=== PATIENT | male | born 1945 | race Caucasian/White ===

== ENCOUNTER 2023-12-29 16:56 | Emergency (ER) | payer MEDICARE, OTHER, SELFPAY ==
[2023-12-29] VITALS (11 sets, daily range): BP systolic 163–186; BP diastolic 88–142; PULSE 62–80; RESP 20–26; TEMP 36.5; O2SAT 92–96; BMI 50.8
--- NOTE | 2023-12-29 17:04 | DI.RAD.S_ITS ---
PROCEDURE: XR CHEST 1V INDICATIONS: chest pain TECHNIQUE: One view of the chest was acquired. COMPARISON: None. FINDINGS: Surgical changes and devices: None. Lungs and pleura: Low lung volumes are seen bilaterally. No pleural effusions or pneumothorax. Mediastinum: Cardiac silhouette is enlarged. Bones and chest wall: No suspicious bony lesions. Overlying soft tissues appear unremarkable. IMPRESSION: No acute cardiopulmonary abnormality is seen. Approved by: Matt Reagan M.D. on 12/29/2023 at 17:33
--- NOTE | 2023-12-29 17:04 | EKG_ITS ---
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
[2023-12-29 17:51] LABS: Influenza A - CEPHEID Flu A NEGATIVE (NEGATIVE); Influenza B - CEPHEID Flu B NEGATIVE (NEGATIVE); Respiratory Syncytial Virus Negative (Negative)
[2023-12-29 17:53] LABS: COVID-19 CEPHEID 4-PLEX PCR Negative (Negative)
[2023-12-29 18:12] LABS: Add Manual Diff / Slide Review NO; Basophils Absolute Auto 100 /uL (0-100); Basophils Percent Auto 0.9 % (0-2); Eosinophils Absolute Auto 300 /uL (0-450); Eosinophils Percent Auto 4.2 % (2-4); Hematocrit 40.9 % (41-53); Hemoglobin 13.4 g/dL (13.5-17.5); Lymphocytes Absolute Auto 900 /uL (1100-4500); Lymphocytes Percent Auto 11.5 % (25-40); Mean Corpuscular HGB Conc 32.8 % (30-36); Mean Corpuscular Hemoglobin 29.9 PG (26-34); Mean Corpuscular Volume 91.3 fL (80-100); Monocytes Absolute Auto 400 /uL (0-900); Monocytes Percent Auto 5.7 % (3-14); Neutrophils Absolute Auto 5900 /uL (1500-7000); Neutrophils Percent Auto 77.7 % (50-75); Platelet Count 233 X10^3/uL (150-400); Red Blood Cell Count 4.48 X10^6/uL (4.5-5.9); Red Cell Distribution Width 16.7 % (11.6-14.8); White Blood Cell Count 7.6 X10^3/uL (4.5-11.0)
--- NOTE | 2023-12-29 18:12 | PC.NURSE ---
Patient brought in by EMS for body aches, cough, nasal congestion x 7days.
[2023-12-29 18:19] LABS: Prothrombin Time 10.8 SECONDS (9.4-12.5)
[2023-12-29 18:21] LABS: PTT Partial Thromboplastin Tim 38 SECONDS (25.1-36.5)
[2023-12-29 18:27] LABS: Alanine Aminotransferase 111 IU/L (<50); Albumin 3.4 g/dL (3.5-5.0); Alkaline Phosphatase 783 U/L (38-126); Aspartate Aminotransferase 216 IU/L (17-59); BUN Creatinine Ratio 18.8 (6-22); Bilirubin Total 1.5 mg/dL (0.2-1.3); Blood Urea Nitrogen 16 mg/dL (9-20); Calcium 9.3 mg/dL (8.4-10.2); Carbon Dioxide 32 mmol/L (22-32); Chloride 100 mmol/L (98-107); Creatine Kinase 61 U/L (55-170); Estimated Glomerular Filt Rate > 60 mL/min (>60); Globulin 3.4 g/dL (1.7-4.1); Glucose 249 mg/dL (80-110); HEMOLYSIS < 15 (0-50); Lipase 241 U/L (23-300); Magnesium 1.9 mg/dL (1.6-2.3); Potassium 4.8 mmol/L (3.4-5.1); Sodium 134 mmol/L (137-145); Total Protein 6.8 g/dL (6.3-8.2)
[2023-12-29 18:38] LABS: NT-proBNP (BNP-Adult 18+) 523 pg/mL (<450); Troponin I < 0.012 ng/mL (0.01-0.034)
--- NOTE | 2023-12-29 20:19 | ED_ITS ---
HPI - General Adult General Chief complaint: Weakness Stated complaint: general weakness, sick t-7 Time Seen by Provider: 12/29/23 18:10 Source: patient and EMS Mode of arrival: EMS History of Present Illness HPI narrative: Patient is a 78-year-old diabetic male who is here for evaluation of 7 days of generalized weakness, subjective fevers, nasal congestion. States that his symptoms seemed to improve a couple days ago but now seem to be getting worse. He does report that he is having some discomfort and redness to his right lower extremity as well. No abdominal pain. No vomiting. No urinary symptoms. No diarrhea. No recent travel. He has been taking all of his medications as directed. Related Data Previous Rx's Medication Instructions Recorded clobetasol 0.05 % topical cream 0.05 % topical QDAY ##45 04/17/16 (Temovate) methadone 10 mg tablet 10 mg PO SEE INSTRUCTIONS #196 tabs 04/17/16 methylphenidate HCl 36 mg 36 mg PO SEE INSTRUCTIONS #28 tabs 04/17/16 tablet,extended release 24 hr (Concerta) paroxetine HCl 10 mg tablet (Paxil) 10 mg PO QDAY #90 tabs 04/17/16 pregabalin 225 mg capsule (Lyrica) 225 mg PO TID #84 caps 04/17/16 triamterene 37.5 1 cap PO QDAY #90 caps 04/17/16 mg-hydrochlorothiazide 25 mg capsule (Dyazide) dutasteride 0.5 mg capsule 0.5 mg PO QDAY #90 caps 05/09/16 (Avodart) losartan 50 mg tablet 50 mg PO QDAY #90 tabs 05/09/16 prazosin 2 mg capsule 14 mg (7 x 2 mg) PO SEE 05/09/16 INSTRUCTIONS #60 caps prazosin 5 mg capsule 14 mg (2.8 x 5 mg) PO HS #60 caps 05/09/16 ropinirole 1 mg tablet (Requip) 1 mg PO HSP PRN #90 tabs 05/09/16 cephalexin 500 mg capsule 500 mg PO QID 10 days #40 caps 12/29/23 Allergies Allergy/AdvReac Type Severity Reaction Status Date / Time clavulanic acid Allergy Intermediate DIARRHEA Unverified 06/03/17 12:25 [CLAVULANIC ACID] hydrocodone [HYDROCODONE] Allergy Intermediate HALLUCINATI Unverified 06/03/17 12:25 ONS hydromorphone [HYDROMORPHONE] Allergy Intermediate HALLUCINATI Unverified 06/03/17 12:25 ONS phenazopyridine AdvReac Mild nausea Unverified 06/03/17 12:25 [From PYRIDIUM] Review of Systems Review of Systems ROS Unobtainable: All systems reviewed & are unremarkable except as noted in HPI and below Patient History Family History (Updated 04/25/15 @ 00:00 by Conversion Provider) Grandfather Hypertension Stroke Social History Smoking Status: Never smoker Smoking Status: Never smoker alcohol intake frequency: holidays/special occasions only Substance Use Type: does not use Exam Initial Vital Signs Initial Vital Signs: Vital Signs Pulse Rate 76 12/29/23 17:02 Respiratory Rate 23 12/29/23 17:02 Pulse Oximetry 96 12/29/23 17:02 Const General: cooperative and No ill appearing HENMT Head: normal to inspection and normocephalic Resp Effort & Inspection: normal respiratory effort Auscultation: clear to auscultation bilaterally Cardio Rate: regular rate Rhythm: regular rhythm Skin Other: Patient has an extensive area of redness and warmth to the medial aspect of his distal right leg. No streaking above the knee. There are no vesicles. No pustules. It was warm to the touch. Neuro Sensory Exam: no sensory deficits noted Extrem General: edema Course Orders Ordered: Discontinued Medications Aspirin (Aspirin 81 Mg Chew Tab) 324 mg PO NOW ONE Stop: 12/29/23 17:05 Last Admin: 12/29/23 17:16 Dose: Not Given Documented By: CHRISTOPHER Cephalexin HCl (Cephalexin 250 Mg Capsule) 500 mg PO NOW ONE Stop: 12/29/23 20:20 Last Admin: 12/29/23 20:30 Dose: 500 mg Documented By: AB Vital Signs Vital signs: Vital Signs - 8 hr 12/29/23 19:30 12/29/23 19:30 12/29/23 20:00 Pulse Rate 80 63 Respiratory Rate 21 Blood Pressure 174/142 H Pulse Oximetry 95 Oxygen Delivery Method Room Air 12/29/23 20:00 Pulse Rate Respiratory Rate Blood Pressure 181/93 H Pulse Oximetry Oxygen Delivery Method Medical Decision Making Lab Data Lab results reviewed: Yes I reviewed the patient's lab results. 12/29/23 18:03 12/29/23 18:03 Labs: Lab Results 12/29/23 12/29/23 Range/Units 17:05 18:03 WBC 7.6 (4.5-11.0) X10^3/uL RBC 4.48 L (4.5-5.9) X10^6/uL Hgb 13.4 L (13.5-17.5) g/dL Hct 40.9 L (41-53) % MCV 91.3 (80-100) fL MCH 29.9 (26-34) PG MCHC 32.8 (30-36) % RDW 16.7 H (11.6-14.8) % Plt Count 233 (150-400) X10^3/uL Neut % (Auto) 77.7 H (50-75) % Lymph % (Auto) 11.5 L (25-40) % [place] % (Auto) 5.7 (3-14) % Eos % (Auto) 4.2 H (2-4) % Baso % (Auto) 0.9 (0-2) % Neut # (Auto) 5900 (8972-5459) /uL Lymph # (Auto) 900 L (8837-0892) /uL [place] # (Auto) 400 (0-900) /uL Eos # (Auto) 300 (0-450) /uL Baso # (Auto) 100 (0-100) /uL PT 10.8 (9.4-12.5) SECONDS INR 1.0 (0.9-1.3) APTT 38 H (25.1-36.5) SECONDS Sodium 134 L (137-145) mmol/L Potassium 4.8 (3.4-5.1) mmol/L Chloride 100 (98-107) mmol/L Carbon Dioxide 32 (22-32) mmol/L BUN 16 (9-20) mg/dL Creatinine 0.85 (0.66-1.25) mg/dL Estimated GFR > 60 (>60) mL/min BUN/Creatinine Ratio 18.8 (6-22) Glucose 249 H (80-110) mg/dL Calcium 9.3 (8.4-10.2) mg/dL Magnesium 1.9 (1.6-2.3) mg/dL Total Bilirubin 1.5 H (0.2-1.3) mg/dL AST 216 H (17-59) IU/L ALT 111 H (<50) IU/L Alkaline Phosphatase 783 H (38-126) U/L Total Creatine Kinase 61 (55-170) U/L Troponin I < 0.012 (0.01-0.034) ng/mL NT-Pro-B Natriuret Pep 523 H (<450) pg/mL Total Protein 6.8 (6.3-8.2) g/dL Albumin 3.4 L (3.5-5.0) g/dL Globulin 3.4 (1.7-4.1) g/dL Albumin/Globulin Ratio 1.0 (1.0-2.8) Lipase 241 (23-300) U/L SARS-CoV-2 (PCR) Negative (Negative) Influenza A (RT-PCR) Flu a negative (NEGATIVE) Influenza B (RT-PCR) Flu b negative (NEGATIVE) RSV (PCR) Negative (Negative) Imaging Data Chest x-ray: Radiologist's Impression: PROCEDURE: XR CHEST 1V INDICATIONS: chest pain TECHNIQUE: One view of the chest was acquired. COMPARISON: None. FINDINGS: Surgical changes and devices: None. Lungs and pleura: Low lung volumes are seen bilaterally. No pleural effusions or pneumothorax. Mediastinum: Cardiac silhouette is enlarged. Bones and chest wall: No suspicious bony lesions. Overlying soft tissues appear unremarkable. IMPRESSION: No acute cardiopulmonary abnormality is seen. ECG Data Attestation: I personally reviewed and interpreted this ECG as follows: Interpretation: Sinus rhythm Ventricular rate 70 First-degree AV block MS interval of 232 milliseconds Normal QRS No ST T wave changes MDM Narrative Medical decision making narrative: Patient is afebrile. Not tachycardic. Flu/COVID test negative. No leukocytosis however he does have an area of cellulitis to his right lower extremity. Low suspicion for deep infection. Will place him on antibiotics. First dose given here in the ER and a prescription was sent to the pharmacy of his choice. Patient was given return precautions and follow-up instructions. He expressed understanding and agreement with the plan. Discharge Plan Departure Patient Disposition: Home Clinical Impression: Cellulitis Instructions: DI for Cellulitis -- Adult Activity Restrictions/Additional Instructions: Continue to take all of your medications as directed. A prescription for antibiotics was sent to [place] pharmacy per your request. Start taking them as directed. Return to the emergency department for new or worsening symptoms. Prescriptions: New cephalexin 500 mg capsule 500 mg PO QID 10 Days Qty: 40 0RF No Action methadone 10 MG tablet 10 mg PO SEE INSTRUCTIONS Qty: 196 0RF methylphenidate HCl [Concerta] 36 MG tablet extended release 24hr 36 mg PO SEE INSTRUCTIONS Qty: 28 0RF pregabalin [Lyrica] 225 MG capsule 225 mg PO TID Qty: 84 1RF paroxetine HCl [Paxil] 10 MG tablet 10 mg PO QDAY Qty: 90 1RF clobetasol [Temovate] 0.05 % cream 0.05 % Topical QDAY Qty: 45 1RF triamterene-hydrochlorothiazid [Dyazide] 37.5 MG/25 MG capsule 1 cap PO QDAY Qty: 90 1RF ropinirole [Requip] 1 MG tablet 1 mg PO HSP PRNQty: 90 0RF losartan 50 MG tablet 50 mg PO QDAY Qty: 90 1RF prazosin 5 MG capsule 14 mg PO HS Qty: 60 1RF prazosin 2 MG capsule 14 mg PO SEE INSTRUCTIONS Qty: 60 2RF dutasteride [Avodart] 0.5 MG capsule 0.5 mg PO QDAY Qty: 90 1RF Stand Alone Forms: Patient Portal/API/Survey
[2023-12-29] MEDS: cephALEXin 250 MG CAPSULE 500 MG PO (20:30)
== END 2023-12-29 20:32 | disposition home or self-care (01) ==
PROVIDERS: Emergency Medicine; Emergency Provider Emergency Medicine
DX: L03.115 Cellulitis of right lower limb (principal); R07.9 Chest pain, unspecified; I44.0 Atrioventricular block, first degree; Z11.52 Encounter for screening for COVID-19
CPT/HCPCS: 0241U; 36415; 71045; 80053; 82550; 83690; 83735; 83880; 84484; 85025; 85610; 85730; 93005; 99284

== ENCOUNTER 2024-02-06 09:05 | Inpatient (IN) | payer MEDICARE, OTHER, SELFPAY ==
[2024-02-06] VITALS (20 sets, daily range): BP systolic 117–147; BP diastolic 58–79; PULSE 57–75; RESP 9–24; TEMP 36.1–36.6; O2SAT 91–99; BMI 54.5
--- NOTE | 2024-02-06 09:06 | ED.GENADULT ---
HPI - General Adult General Chief complaint: Shortness of Breath/Dyspnea Stated complaint: Near Syncope Time Seen by Provider: 02/06/24 09:06 Source: patient, EMS, RN notes reviewed and old records reviewed Mode of arrival: EMS Limitations: no limitations History of Present Illness HPI narrative: 78-year-old male history of diabetes, chronic back pain, hypertension, morbid obesity who presents with complaint of swelling that is increased in his lower extremities and abdomen shortness of breath. EMS notes that there was question about a near syncopal episode although patient states it has not his main reason for coming today. He denies any fevers or chills. He has had a little bit of cough which has been nonproductive. He describes orthopnea and shortness of breath. He states he currently feels mildly short of breath sitting in the bed. He does not endorse any chest pain or pressure. No abdominal pain. He states he is chronic back pain. States he has had increasing swelling of his left lower extremities over the last several weeks coming up into his abdomen. 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 He states about a week ago had nausea vomiting and diarrhea that has since improved but still has some persistent nausea. He has not had any persistent diarrhea. States he has chronic urinary issues but no new changes. States he is on medication for his back, fibromyalgia states he takes glyburide and metformin for his diabetes states he does not take a statin. Does describe having possibly an atrophic kidney. States he is on triamterene and hydrochlorothiazide. States he has had prior perianal surgery for an infection. Describes allergy to clavulanic acid but states he can tolerate amoxicillin. Denies any regular tobacco 1 alcoholic drinks monthly, no recreational drugs. States Rukhsana is his primary care provider. States he came in the ER today because his made him. States he is difficulty getting to the doctor because of transportation and difficulty with movement. Related Data Home Medications Medication Instructions Recorded Confirmed buprenorphine 15 mcg/hour weekly 15 mcg transdermal WEEKLY 02/06/24 02/06/24 transdermal patch duloxetine 30 mg capsule,delayed 30 mg PO DAILY 02/06/24 02/06/24 release miconazole nitrate 2 % topical 1 applic topical DAILY 02/06/24 02/06/24 cream (Antifungal (miconazole)) ondansetron HCl 4 mg tablet 4 mg PO Q8H PRN Nausea 02/06/24 02/06/24 oxycodone 10 mg tablet 10 mg PO 3XD PRN Pain (Scale Score 02/06/24 02/06/24 7-10) Previous Rx's Medication Instructions Recorded methylphenidate HCl 36 mg 36 mg PO SEE INSTRUCTIONS #28 tabs 04/17/16 tablet,extended release 24 hr (Concerta) pregabalin 225 mg capsule (Lyrica) 225 mg PO TID #84 caps 04/17/16 triamterene 37.5 1 cap PO QDAY #90 caps 04/17/16 mg-hydrochlorothiazide 25 mg capsule (Dyazide) dutasteride 0.5 mg capsule 0.5 mg PO QDAY #90 caps 05/09/16 (Avodart) prazosin 2 mg capsule 14 mg (7 x 2 mg) PO SEE 05/09/16 INSTRUCTIONS #60 caps prazosin 5 mg capsule 14 mg (2.8 x 5 mg) PO HS #60 caps 05/09/16 Allergies Allergy/AdvReac Type Severity Reaction Status Date / Time clavulanic acid Allergy Intermediate DIARRHEA Verified 02/06/24 09:23 [CLAVULANIC ACID] hydrocodone [HYDROCODONE] Allergy Intermediate HALLUCINATI Verified 02/06/24 09:23 ONS hydromorphone [HYDROMORPHONE] Allergy Intermediate HALLUCINATI Verified 02/06/24 09:23 ONS phenazopyridine AdvReac Mild nausea Verified 02/06/24 09:23 [From PYRIDIUM] Review of Systems Review of Systems ROS Unobtainable: All systems reviewed & are unremarkable except as noted in HPI and below Patient History Medical History (Updated 02/06/24 @ 16:16 by Francisco Whatley MD) Perianal abscess Diaphragm paralysis Hypertension BPH (benign prostatic hyperplasia) Opiate dependence Chronic pain Fibromyalgia TALITA (acute kidney injury) Generalized edema (04/27/15) Surgical History (Updated 02/06/24 @ 16:16 by Francisco Whatley MD) History of lumbar laminectomy History of thoracic surgery Family History Grandfather Hypertension Stroke Social History household members: spouse Smoking Status: Former smoker alcohol intake: current Smoking Status: Never smoker alcohol intake frequency: holidays/special occasions only Exam Narrative Exam Narrative: GENERAL: Alert and oriented x three, obese male in mild distress HEENT: Head normocephalic, atraumatic, EOMI, pupils reactive, face symmetric, moist mucous membranes NECK: Supple, full range of motion CARDIOVASCULAR: Regular rate and rhythm without murmurs, rubs or gallops. Patient has 2+ edema bilateral lower extremities with pitting edema up into his abdomen. RESPIRATORY: Breath sounds equal bilaterally, no wheezes rales or rhonchi. No tachypnea. Little bit difficult to evaluate lung secondary to habitus. ABDOMEN: Soft, nontender. Normoactive bowel sounds all 4 quadrants. No guarding or rebound, rigidity, no mass, patient does have edema in his abdomen he has some erythema across his entire lower abdomen and into the groin. : No CVA tenderness EXTREMITIES: Normal range of motion, bilateral lower extremity edema. Cap refill less than 2 seconds bilateral lower extremities.. Neurovascularly intact NEUROLOGICAL: Cranial nerves II through XII grossly intact. Moving all extremities SKIN: Warm, dry, no petechiae, no rashes or lesions. Initial Vital Signs Initial Vital Signs: Vital Signs Pulse Rate 69 02/06/24 09:13 Blood Pressure 140/74 02/06/24 09:13 Pulse Oximetry 94 02/06/24 09:13 Course Orders Ordered: ED Orders 02/06/24 11:15 Trop I [Troponin I] Stat Duloxetine HCl (Duloxetine 30 Mg Capsule) 30 mg PO DAILY [facility] Enoxaparin Sodium (Enoxaparin 40 Mg/0.4 Ml Syringe) 40 mg SUBCUT BID [facility] Furosemide (Furosemide 40 Mg/4 Ml Vial) 40 mg IV Q8H [facility] Last Admin: 02/06/24 16:39 Dose: 40 mg Documented By: JAYDA Losartan Potassium (Losartan 50 Mg Tablet) 50 mg PO DAILY [facility] Last Admin: 02/06/24 16:10 Dose: 50 mg Documented By: LAUREEN Naloxone HCl (Naloxone 0.4 Mg/Ml Vial) 0.2 mg IV Q2MIN PRN PRN Reason: Opiate Reversal Non-Formulary Medication (Dutasteride [Avodart]) 0.5 mg PO DAILY [facility] Non-Formulary Medication (Buprenorphine) 15 mcg TOP WEEKLY [facility] Non-Formulary Medication (Miconazole Nitrate [Antifungal (Miconazole)]) 1 applictn TOP DAILY [facility] Oxycodone HCl (Oxycodone Ir 10 Mg Tablet) 10 mg PO TID PRN PRN Reason: Pain, Severe (7-10) Last Admin: 02/06/24 16:39 Dose: 10 mg Documented By: SB Paroxetine HCl (Paroxetine 20 Mg Tablet) 10 mg PO DAILY [facility] Prazosin HCl (Prazosin Hcl 5 Mg Capsule) 10 mg PO BEDTIME [facility] Prazosin HCl (Prazosin 1 Mg Capsule) 4 mg PO BEDTIME [facility] Pregabalin (Pregabalin 75 Mg Capsule) 300 mg PO BID [facility] Ropinirole HCl (Ropinirole 1 Mg Tablet) 1 mg PO BEDTIME PRN PRN Reason: Restlessness Triamterene/Hydrochlorothiazide (Triamterene/Hctz 37.5/25 Capsule) 1 cap PO DAILY [facility] Last Admin: 02/06/24 16:10 Dose: 1 cap Documented By: LAUREEN Discontinued Medications Aspirin (Aspirin 81 Mg Chew Tab) 324 mg PO NOW ONE Stop: 02/06/24 10:35 Last Admin: 02/06/24 10:45 Dose: 324 mg Documented By: OLGA LIDIA Furosemide (Furosemide 40 Mg/4 Ml Vial) 40 mg IV NOW ONE Stop: 02/06/24 09:32 Last Admin: 02/06/24 09:36 Dose: 40 mg Documented By: REBECCA Pregabalin (Pregabalin 75 Mg Capsule) 225 mg PO TID [facility] Vital Signs Vital signs: Vital Signs - 8 hr 02/06/24 11:30 02/06/24 11:30 02/06/24 12:00 Pulse Rate 71 72 Respiratory Rate 17 20 Blood Pressure 144/75 H Pulse Oximetry 97 96 Oxygen Delivery Method Nasal Cannula Oxygen Flow Rate 2 02/06/24 12:00 02/06/24 12:30 02/06/24 12:34 Pulse Rate 59 L 66 Respiratory Rate 17 23 Blood Pressure 139/75 Pulse Oximetry 98 92 Oxygen Delivery Method Nasal Cannula Nasal Cannula Oxygen Flow Rate 2 2 02/06/24 12:34 02/06/24 13:00 02/06/24 13:00 Pulse Rate 67 Respiratory Rate 9 L Blood Pressure 142/76 H 121/58 L Pulse Oximetry 97 Oxygen Delivery Method Nasal Cannula Oxygen Flow Rate 2 02/06/24 13:30 02/06/24 13:30 Pulse Rate 66 Respiratory Rate 13 Blood Pressure 117/59 L Pulse Oximetry Oxygen Delivery Method Oxygen Flow Rate Medical Decision Making Lab Data 02/06/24 09:00 02/06/24 09:00 Labs: Lab Results 02/06/24 02/06/24 Range/Units 09:00 11:15 WBC 5.1 (4.5-11.0) X10^3/uL RBC 4.29 L (4.5-5.9) X10^6/uL Hgb 12.8 L (13.5-17.5) g/dL Hct 39.8 L (41-53) % MCV 92.8 (80-100) fL MCH 29.8 (26-34) PG MCHC 32.1 (30-36) % RDW 17.8 H (11.6-14.8) % Plt Count 208 (150-400) X10^3/uL Neut % (Auto) 62.7 (50-75) % Lymph % (Auto) 22.7 L (25-40) % [place] % (Auto) 8.1 (3-14) % Eos % (Auto) 5.0 H (2-4) % Baso % (Auto) 1.5 (0-2) % Neut # (Auto) 3200 (0535-7078) /uL Lymph # (Auto) 1100 (5794-9523) /uL [place] # (Auto) 400 (0-900) /uL Eos # (Auto) 300 (0-450) /uL Baso # (Auto) 100 (0-100) /uL Sodium 137 (137-145) mmol/L Potassium 4.7 (3.4-5.1) mmol/L Chloride 100 (98-107) mmol/L Carbon Dioxide 33 H (22-32) mmol/L BUN 22 H (9-20) mg/dL Creatinine 1.39 H (0.66-1.25) mg/dL Estimated GFR 52 L (>60) mL/min BUN/Creatinine Ratio 15.8 (6-22) Glucose 162 H (80-110) mg/dL Calcium 9.2 (8.4-10.2) mg/dL Total Bilirubin 0.6 (0.2-1.3) mg/dL AST 73 H (17-59) IU/L ALT 37 (<50) IU/L Alkaline Phosphatase 311 H (38-126) U/L Total Creatine Kinase 68 (55-170) U/L Troponin I 0.063 H 0.060 H (0.01-0.034) ng/mL NT-Pro-B Natriuret Pep 4940 H (<450) pg/mL Total Protein 6.9 (6.3-8.2) g/dL Albumin 3.7 (3.5-5.0) g/dL Globulin 3.2 (1.7-4.1) g/dL Albumin/Globulin Ratio 1.2 (1.0-2.8) Lipase 64 (23-300) U/L Imaging Data Chest x-ray: Radiologist's Impression: Close Chest X-Ray (Signed) Diana Mascorro - 02/06/24 Chest X-Ray (Signed) Matt Reagan - 12/29/23 [employer] [address] XRay Report Signed Patient: Felix Zarco MR#: [id number] : 1945 Acct:[id number] Age/Sex: 78 / M Date of Service: 02/06/24 Loc: ED Accession Number: [id number] Procedure: XR chest 1V Ordering Provider: Fany Childs D.O. PROCEDURE: XR CHEST 1V INDICATIONS: sob, le swelling TECHNIQUE: One view of the chest was acquired. COMPARISON: [facility], , XR CHEST 1V, 12/29/2023, 17:04. FINDINGS: Surgical changes and devices: None. Lungs and pleura: Lungs are hypoinflated which is unchanged compared to the prior exam. No new pleural effusion or pneumothorax. Mediastinum: Heart size is enlarged. Bones and chest wall: No suspicious bony lesions. Overlying soft tissues appear unremarkable. IMPRESSION: No acute cardiopulmonary abnormality is seen. Dictated by: Diana Mascorro M.D. on 02/06/2024 at 8:55 Approved by: Diana Mascorro M.D. on 02/06/2024 at 8:57 ECG Data Attestation: I personally reviewed and interpreted this ECG as follows: Prior ECG tracings: available for review Interpretation: Sinus bradycardia with first-degree AV block rate of 59 [place] 228 QRS of 98 QTC of 397, no acute ST elevation. Patient has prior from 12/29/2023 overall appears similar accept for V2 T-wave is down words was upright on prior no other acute ST changes noted. MDM Narrative Medical decision making narrative: 78-year-old male with complaint of visits in a and increasing edema bilateral lower extremities patient is physically exam seems most consistent with CHF exacerbation. He drops down to 86% when not speaking on room air. Labs show white count of 5.1 hemoglobin of 12.8 platelets of 208, INR is normal creatinine is 1.39 prior from 12/29/2023 shows creatinine of 0.85 BUN 22 today sodium is 137 potassium 4.7 chloride 100 CO2 is 33 glucose is 162. Calcium is 9.2. AST 73 but normal bilirubin at 0.6 ALT is 37 alk-phos is 311. Troponin 0.063 and BNP is elevated today at 4940. Last was 523 at the beginning of December. Repeat troponin is 0.060. Chest x-ray shows no acute change EKG sinus bradycardia 1st degree AV block. V2 is down was upright on prior on 12/28 but no other acute ST changes noted. Patient appears clinically fluid overloaded was given Lasix 40 mg. Initial troponin is indeterminate was given aspirin 325 mg although patient has no active chest pain. Troponin was repeated and it was not rising upwards. Patient has new hypoxia likely secondary to CHF exacerbation although chest x-ray is negative patient appears clinically fluid overloaded. Spoke with Dr. Whatley hospitalist who accepts. Discharge Plan Departure Patient Disposition: Admitted as Observation Clinical Impression: Acute exacerbation of CHF (congestive heart failure), Hypoxia Admit Date/Time: 02/06/24 13:41 Admit Provider: Francisco Whatley
--- NOTE | 2024-02-06 09:31 | DI.RAD.S_ITS ---
PROCEDURE: XR CHEST 1V INDICATIONS: sob, le swelling TECHNIQUE: One view of the chest was acquired. COMPARISON: [facility], CR, XR CHEST 1V, 12/29/2023, 17:04. FINDINGS: Surgical changes and devices: None. Lungs and pleura: Lungs are hypoinflated which is unchanged compared to the prior exam. No new pleural effusion or pneumothorax. Mediastinum: Heart size is enlarged. Bones and chest wall: No suspicious bony lesions. Overlying soft tissues appear unremarkable. IMPRESSION: No acute cardiopulmonary abnormality is seen. Dictated by: Diana Mascorro M.D. on 02/06/2024 at 8:55 Approved by: Diana Mascorro M.D. on 02/06/2024 at 8:57
[2024-02-06] MEDS: FUROSEMIDE 40 MG/4 ML VIAL IV ×3 (09:36→23:58)
[2024-02-06 09:44] LABS: Add Manual Diff / Slide Review NO; Basophils Absolute Auto 100 /uL (0-100); Basophils Percent Auto 1.5 % (0-2); Eosinophils Absolute Auto 300 /uL (0-450); Hematocrit 39.8 % (41-53); Hemoglobin 12.8 g/dL (13.5-17.5); Lymphocytes Absolute Auto 1100 /uL (1100-4500); Lymphocytes Percent Auto 22.7 % (25-40); Mean Corpuscular HGB Conc 32.1 % (30-36); Mean Corpuscular Hemoglobin 29.8 PG (26-34); Mean Corpuscular Volume 92.8 fL (80-100); Monocytes Absolute Auto 400 /uL (0-900); Monocytes Percent Auto 8.1 % (3-14); Neutrophils Absolute Auto 3200 /uL (1500-7000); Neutrophils Percent Auto 62.7 % (50-75); Platelet Count 208 X10^3/uL (150-400); Red Blood Cell Count 4.29 X10^6/uL (4.5-5.9); Red Cell Distribution Width 17.8 % (11.6-14.8); White Blood Cell Count 5.1 X10^3/uL (4.5-11.0)
[2024-02-06 09:48] LABS: Alanine Aminotransferase 37 IU/L (<50); Albumin 3.7 g/dL (3.5-5.0); Albumin Globulin Ratio 1.2 (1.0-2.8); Alkaline Phosphatase 311 U/L (38-126); Aspartate Aminotransferase 73 IU/L (17-59); BUN Creatinine Ratio 15.8 (6-22); Bilirubin Total 0.6 mg/dL (0.2-1.3); Blood Urea Nitrogen 22 mg/dL (9-20); Calcium 9.2 mg/dL (8.4-10.2); Carbon Dioxide 33 mmol/L (22-32); Chloride 100 mmol/L (98-107); Creatine Kinase 68 U/L (55-170); Estimated Glomerular Filt Rate 52 mL/min (>60); Globulin 3.2 g/dL (1.7-4.1); Glucose 162 mg/dL (80-110); HEMOLYSIS < 15 (0-50); Lipase 64 U/L (23-300); Potassium 4.7 mmol/L (3.4-5.1); Sodium 137 mmol/L (137-145); Total Protein 6.9 g/dL (6.3-8.2)
--- NOTE | 2024-02-06 09:50 | EKG_ITS ---
[address] [address] Test Date: 2024-02-06 Pat Name: Felix Zarco Department: [facility] Room: Gender: Male Comb Setter: REBECCA : 1945 Requested By: Order Number: [id number] Reading MD: Measurements Intervals [place] Rate: 59 P: 19 [place]: 228 QRS: 34 QRSD: 98 T: 28 QT: 402 QTc: 397 Interpretive Statements Sinus bradycardia with 1st degree AV block Electronically Signed On 02-06-2024 14:08:02 PST by Dean Whatley
[2024-02-06 09:58] LABS: NT-proBNP (BNP-Adult 18+) 4940 pg/mL (<450)
[2024-02-06 10:01] LABS: Troponin I 0.063 ng/mL (0.01-0.034)
--- NOTE | 2024-02-06 10:18 | PC.NURSE ---
Pt reports swelling to pannus and lower abdomen. Pt reports associated SOB. Pt denies needing home O2. Room air sat w/ EMS in 80s. Pt states he takes a diuretic at home.
[2024-02-06] MEDS: ASPIRIN 81 MG CHEW TAB 324 MG PO (10:45)
--- NOTE | 2024-02-06 11:46 | PC.NURSE ---
Liana (niece) updated per pt and pt request
--- NOTE | 2024-02-06 14:10 | PM.HP.1 ---
History of Present Illness History of Present Illness Date Patient Seen: 02/06/24 Time Patient Seen: 14:10 Chief complaint: Near Syncope Narrative: This is a 78-year-old male with fibromyalgia, BPH and hypertension who presents with 1 day of shortness of breath, increased leg swelling and trouble walking. At baseline at home he uses a walker but his legs are not swollen. He has a very large pannus which is also quite swollen. He has no cardiac history. He is on doses of several medications for fibromyalgia. He says that 2 weeks ago he was treated with an unknown antibiotic for a leg infection which cleared up. His troponin is 0.06 with a BNP greater than 4500. 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 [facility] Medical History (Updated 02/06/24 @ 16:16 by Francisco Whatley MD) Perianal abscess Diaphragm paralysis Hypertension BPH (benign prostatic hyperplasia) Opiate dependence Chronic pain Fibromyalgia TALITA (acute kidney injury) Generalized edema (04/27/15) Surgical History (Updated 02/06/24 @ 16:16 by Francisco Whatley MD) History of lumbar laminectomy History of thoracic surgery Family History Grandfather Hypertension Stroke Social History household members: spouse Smoking Status: Former smoker alcohol intake: current Meds Home Medications and Allergies Home Medications Medication Instructions Recorded Confirmed Type methylphenidate HCl 36 mg 36 mg PO SEE INSTRUCTIONS #28 tabs 04/17/16 02/06/24 Rx tablet,extended release 24 hr (Concerta) pregabalin 225 mg capsule (Lyrica) 225 mg PO TID #84 caps 04/17/16 02/06/24 Rx triamterene 37.5 1 cap PO QDAY #90 caps 04/17/16 02/06/24 Rx mg-hydrochlorothiazide 25 mg capsule (Dyazide) dutasteride 0.5 mg capsule 0.5 mg PO QDAY #90 caps 05/09/16 02/06/24 Rx (Avodart) prazosin 2 mg capsule 14 mg (7 x 2 mg) PO SEE 05/09/16 02/06/24 Rx INSTRUCTIONS #60 caps prazosin 5 mg capsule 14 mg (2.8 x 5 mg) PO HS #60 caps 05/09/16 02/06/24 Rx duloxetine 30 mg capsule,delayed 30 mg PO DAILY 02/06/24 02/06/24 History release ondansetron HCl 4 mg tablet 4 mg PO Q8H PRN Nausea 02/06/24 02/06/24 History oxycodone 10 mg tablet 10 mg PO 3XD PRN Pain (Scale Score 02/06/24 02/06/24 History 7-10) Allergies Allergy/AdvReac Type Severity Reaction Status Date / Time clavulanic acid Allergy Intermediate DIARRHEA Verified 02/06/24 09:23 [CLAVULANIC ACID] hydrocodone [HYDROCODONE] Allergy Intermediate HALLUCINATI Verified 02/06/24 09:23 ONS hydromorphone [HYDROMORPHONE] Allergy Intermediate HALLUCINATI Verified 02/06/24 09:23 ONS phenazopyridine AdvReac Mild nausea Verified 02/06/24 09:23 [From PYRIDIUM] Review of Systems Review of Systems Narrative: Positive for leg swelling, shortness of breath and trouble walking. Negative for fevers, chills, sweats, redness, nausea, vomiting, abdominal pain, bleeding, rashes, headache, coughing, chest pain, sore throat and new allergies Exam Vital Signs (past 8 hours): - 02/06/24 09:13 02/06/24 09:13 02/06/24 09:17 Temperature 97.9 F Pulse Rate 69 66 Respiratory Rate 22 Blood Pressure 140/74 140/74 Pulse Oximetry 94 93 Oxygen Delivery Method Room Air Oxygen Flow Rate 02/06/24 09:30 02/06/24 09:30 02/06/24 10:00 Temperature Pulse Rate 64 61 Respiratory Rate 24 12 Blood Pressure 131/79 Pulse Oximetry 91 96 Oxygen Delivery Method Oxygen Flow Rate 02/06/24 10:00 02/06/24 10:30 02/06/24 10:30 Temperature Pulse Rate 75 Respiratory Rate 18 Blood Pressure 139/74 143/72 H Pulse Oximetry 92 Oxygen Delivery Method Oxygen Flow Rate 02/06/24 11:00 02/06/24 11:00 02/06/24 11:30 Temperature Pulse Rate 73 71 Respiratory Rate 16 17 Blood Pressure 147/75 H Pulse Oximetry 96 97 Oxygen Delivery Method Oxygen Flow Rate 02/06/24 11:30 02/06/24 12:00 02/06/24 12:00 Temperature Pulse Rate 72 Respiratory Rate 20 Blood Pressure 144/75 H 139/75 Pulse Oximetry 96 Oxygen Delivery Method Nasal Cannula Oxygen Flow Rate 2 02/06/24 12:30 02/06/24 12:34 02/06/24 12:34 Temperature Pulse Rate 59 L 66 Respiratory Rate 17 23 Blood Pressure 142/76 H Pulse Oximetry 98 92 Oxygen Delivery Method Nasal Cannula Nasal Cannula Oxygen Flow Rate 2 2 02/06/24 13:00 02/06/24 13:00 02/06/24 13:30 Temperature Pulse Rate 67 66 Respiratory Rate 9 L 13 Blood Pressure 121/58 L Pulse Oximetry 97 Oxygen Delivery Method Nasal Cannula Oxygen Flow Rate 2 02/06/24 13:30 Temperature Pulse Rate Respiratory Rate Blood Pressure 117/59 L Pulse Oximetry Oxygen Delivery Method Oxygen Flow Rate Oxygen Delivery Method Nasal Cannula Oxygen Flow Rate 2 Narrative Exam Narrative: He is alert and oriented x3. No apparent distress. Obese. Pupils are equally round and reactive to light and accommodation. Extraocular muscles are intact. Sclerae are pink and nonicteric. No lymph nodes are felt head, neck, supraclavicular area. There is no thyromegaly. JVD is less than 6 cm. Throat looks normal Heart is regular rate and rhythm without murmur Lungs are clear to auscultation bilaterally Abdomen is soft, obese, nontender, no organomegaly. The abdominal pannus is extremely edematous. 2+ pitting lower extremity edema from the foot up to the hip. Skin no rash or jaundice Neurological exam: Cranial nerves 2-12 test intact, motor function is 4/5 throughout, there is no tremor. Objective Labs 02/06/24 09:00 02/06/24 09:00 Labs: Laboratory Results - last 24 hr 02/06/24 02/06/24 09:00 11:15 WBC 5.1 RBC 4.29 L Hgb 12.8 L Hct 39.8 L MCV 92.8 MCH 29.8 MCHC 32.1 RDW 17.8 H Plt Count 208 Neut % (Auto) 62.7 Lymph % (Auto) 22.7 L [place] % (Auto) 8.1 Eos % (Auto) 5.0 H Baso % (Auto) 1.5 Neut # (Auto) 3200 Lymph # (Auto) 1100 [place] # (Auto) 400 Eos # (Auto) 300 Baso # (Auto) 100 Sodium 137 Potassium 4.7 Chloride 100 Carbon Dioxide 33 H BUN 22 H Creatinine 1.39 H Estimated GFR 52 L BUN/Creatinine Ratio 15.8 Glucose 162 H Calcium 9.2 Total Bilirubin 0.6 AST 73 H ALT 37 Alkaline Phosphatase 311 H Total Creatine Kinase 68 Troponin I 0.063 H 0.060 H NT-Pro-B Natriuret Pep 4940 H Total Protein 6.9 Albumin 3.7 Globulin 3.2 Albumin/Globulin Ratio 1.2 Lipase 64 Assessment & Plan Assessment & Plan narrative: This is a 78-year-old male with history of hypertension, fibromyalgia and BPH who presents with anasarca suggestive of congestive heart failure. Anasarca/peripheral edema and pannus edema -check echocardiogram -give Lasix with caution because of evidence for TALITA/CKD? -monitor electrolytes. TALITA/CKD -unclear Creatinine baseline -Creatinine 1.39 on admission, follow HNT -Losartan, Triamterine, HCTZ, Prazosin BPH -Dutasteride Fibromyalgia -Continue home Pregabalin and Duloxetine -Continue Oxycodone 10 mg TID. -Followed at [facility] Depression/PTSD -Paroxetine, Duloxetine and Prazosin RLS -Ropinorole Elevated LFT -AST 73, ALT 37, Alk Phos 311 -Likely due to hepatic congestion -Follow His is his back up decision maker. Lovenox for DVT prevention Time-Based Coding :: [TOTAL MINUTES] spent with patient and on the chart (including review of chart, obtaining history, exam, reviewing outside data, placing orders, documenting exam and treatment plan, and counseling patient) on [DATE].
--- NOTE | 2024-02-06 14:29 | PC.NURSE ---
reassess no change; unable to determine urine output as pt spilled urine container on bed. pt cleaned up.
[2024-02-06] MEDS: LOSARTAN 50 MG TABLET PO (16:10)
[2024-02-06] MEDS: TRIAMTERENE/HCTZ 37.5/25 CAPSULE 1 CAP PO (16:10)
[2024-02-06] MEDS: OXYCODONE IR 10 MG TABLET PO ×2 (16:39→20:51)
--- NOTE | 2024-02-06 17:02 | PC.NURSE ---
Pt arrived from ED at 1450, VSS on 2L NC, A&Ox4. C/o decreased sensation to bilat feet, otherwise CMS+. Lung sounds CTA except for RLL which is diminished. Bilat LE red and slightly swollen, large pannus also red with peeling/yeasty skin underneath. Tele placed per order. Pt oriented to room and call light, bed in low position, call light within reach, bed alarm activated.
[2024-02-06] MEDS: PRAZOSIN 1 MG CAPSULE 4 MG PO (20:50)
[2024-02-06] MEDS: PREGABALIN 75 MG CAPSULE 300 MG PO (20:51)
[2024-02-06] MEDS: ROPINIROLE 1 MG TABLET PO (20:52)
[2024-02-07] VITALS (9 sets, daily range): BP systolic 84–122; BP diastolic 51–63; PULSE 69–93; RESP 16–19; TEMP 36.1–36.9; O2SAT 93–96
[2024-02-07] MEDS: OXYCODONE IR 10 MG TABLET PO ×3 (03:02→23:20)
--- NOTE | 2024-02-07 03:16 | PC.NURSE ---
Assumed care of patient at 0314.
--- NOTE | 2024-02-07 05:41 | PC.NURSE ---
Pt BP was 84/51 with a map of [address] Fernández notified, he said to hold next furosemide dose which is at 0830 this am.
[2024-02-07 09:02] LABS: BUN Creatinine Ratio 15.7 (6-22); Blood Urea Nitrogen 22 mg/dL (9-20); Calcium 8.6 mg/dL (8.4-10.2); Chloride 95 mmol/L (98-107); Estimated Glomerular Filt Rate 51 mL/min (>60); Glucose 127 mg/dL (80-110); HEMOLYSIS < 15 (0-50); Potassium 4.4 mmol/L (3.4-5.1); Sodium 137 mmol/L (137-145)
[2024-02-07 09:09] LABS: Carbon Dioxide 34 mmol/L (22-32)
[2024-02-07] MEDS: NYSTATIN POWDER 15GM 1 APPLIC TOP ×2 (09:47→21:22)
[2024-02-07] MEDS: FUROSEMIDE 40 MG/4 ML VIAL IV ×2 (09:47→09:51)
[2024-02-07] MEDS: PARoxetine 20 MG TABLET 10 MG PO (09:48)
[2024-02-07] MEDS: ENOXAPARIN 40 MG/0.4 ML SYRINGE SUBCUT ×2 (09:52→21:22)
[2024-02-07] MEDS: DULOXETINE 30 MG CAPSULE PO (09:52)
[2024-02-07] MEDS: PREGABALIN 75 MG CAPSULE 300 MG PO ×2 (09:53→21:22)
--- NOTE | 2024-02-07 11:46 | P.PN_ITS ---
Subjective Subjective Date Patient Seen: 02/07/24 Interval history: He is seen in his room here today. His blood pressure is as low as 84/51 overnight. He has been on a very high dose of prazosin(for nightmares) which turns out to be incorrect so that will be adjusted today and his blood pressure should be better. His Lasix dose was held last night. He continues with edema of his legs and pannus. An echocardiogram is still pending. The sodium level is 137 with a potassium of 4.4 and a creatinine of 1.4. Exam Vital Signs (past 8 hours): - 02/07/24 04:00 02/07/24 07:51 02/07/24 09:26 Temperature 97.5 F L 97.1 F L Pulse Rate 80 69 Respiratory Rate 17 17 Blood Pressure 84/51 L 95/61 Pulse Oximetry 93 96 95 Oxygen Delivery Method Nasal Cannula Oxygen Flow Rate 2 2 2 Fraction of Inspired Oxygen 28 SaO2/FiO2 Ratio 353 Oxygen Delivery Method Nasal Cannula Oxygen Flow Rate 2 Narrative Exam Narrative: Alert and oriented x3. No apparent distress. Heart is regular rate and rhythm without murmur Lungs are clear to auscultation bilaterally There is 1+ edema of both legs and the lower pannus but this has more skin wrinkling and appears to be slowly improving. Objective Labs 02/06/24 09:00 02/07/24 08:30 Labs: Laboratory Results - last 24 hr 02/06/24 02/07/24 11:15 08:30 Sodium 137 Potassium 4.4 Chloride 95 L Carbon Dioxide 34 H BUN 22 H Creatinine 1.40 H Estimated GFR 51 L BUN/Creatinine Ratio 15.7 Glucose 127 H Calcium 8.6 Troponin I 0.060 H [facility] Medical History (Updated 02/06/24 @ 16:16 by Francisco Whatley MD) Perianal abscess Diaphragm paralysis Hypertension BPH (benign prostatic hyperplasia) Opiate dependence Chronic pain Fibromyalgia TALITA (acute kidney injury) Generalized edema (04/27/15) Surgical History (Updated 02/06/24 @ 16:16 by Francisco Whatley MD) History of lumbar laminectomy History of thoracic surgery Family History Grandfather Hypertension Stroke Social History household members: spouse Smoking Status: Former smoker alcohol intake: current Assessment & Plan Assessment & Plan narrative: This is a 78-year-old male with history of hypertension, fibromyalgia and BPH who presents with anasarca suggestive of congestive heart failure. Anasarca/peripheral edema and pannus edema -check echocardiogram for probable CHF -give Lasix with caution because of evidence for TALITA/CKD? -monitor electrolytes. TALITA/CKD -unclear Creatinine baseline -Creatinine 1.39 on admission, follow HTN -Losartan, Triamterine, HCTZ, Prazosin -02/07/2024 decrease prazosin dose 10 mg. BPH -Dutasteride Fibromyalgia -Continue home Pregabalin and Duloxetine -Continue Oxycodone 10 mg TID. -continue buprenorphine patch weekly. -Followed at [facility] Depression/PTSD -Paroxetine, Duloxetine and Prazosin -significant nightmares suppressed on high-dose prazosin. RLS -Ropinorole Elevated LFT -AST 73, ALT 37, Alk Phos 311 -Likely due to hepatic congestion -Follow His is his back up decision maker. Lovenox for DVT prevention Time-Based Coding :: [TOTAL MINUTES] spent with patient and on the chart (including review of chart, obtaining history, exam, reviewing outside data, placing orders, documenting exam and treatment plan, and counseling patient) on [DATE]. Quality VTE Deep Vein Thrombosis/Pulmonary Embolism Present on Admission: No
--- NOTE | 2024-02-07 16:26 | CM.DANOTE ---
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 Recent trouble walking d/t increased leg swelling and SOB. Hypotensive last night d/t medication, attempted to change dose, increase Lasix and have PT eval. Echo pending. Possible need for HHC/SNF pending eval. Payer: medicare, [employer] DARLEEN Arroyo Discharge Planning/Care Management CM Discharge Assessment Start: 02/07/24 16:25 Freq: Status: Active Protocol: Document 02/07/24 16:25 KG (Rec: 02/07/24 16:26 KG [id number]) Discharge Planning Assessment Assigned Client Engagement Specialist Dominga Watters Advance Directives? No History Provided By Patient,Medical Record Prior Living Arrangements House Household Members spouse If patient plan is home with home health No : Has signed face to face form been completed? If patient plan is SNF: Has PASSR been No completed?
--- NOTE | 2024-02-07 18:01 | PC.NURSE ---
Patient is resting comfortably, given oxycodone x1, up to chair for a few hours today. He is a one person assist with walker. He has a condom catheter on. Eats well at meals. Resting comfortably.
[2024-02-08] VITALS (12 sets, daily range): BP systolic 86–138; BP diastolic 52–75; PULSE 69–86; RESP 17–20; TEMP 35.9–36.9; O2SAT 92–98
[2024-02-08] MEDS: FUROSEMIDE 40 MG/4 ML VIAL IV ×3 (00:53→16:47)
--- NOTE | 2024-02-08 01:23 | PC.NURSE ---
Assumed care of patient at 0120.
[2024-02-08] MEDS: ACETAMINOPHEN 325 MG TABLET 650 MG PO ×2 (04:25→20:30)
[2024-02-08 05:13] LABS: Alanine Aminotransferase 28 IU/L (<50); Albumin Globulin Ratio 1.1 (1.0-2.8); Alkaline Phosphatase 266 U/L (38-126); Aspartate Aminotransferase 69 IU/L (17-59); BUN Creatinine Ratio 22.2 (6-22); Bilirubin Total 0.7 mg/dL (0.2-1.3); Blood Urea Nitrogen 26 mg/dL (9-20); Calcium 8.3 mg/dL (8.4-10.2); Carbon Dioxide 39 mmol/L (22-32); Chloride 93 mmol/L (98-107); Estimated Glomerular Filt Rate > 60 mL/min (>60); Globulin 2.8 g/dL (1.7-4.1); Glucose 160 mg/dL (80-110); HEMOLYSIS < 15 (0-50); Sodium 135 mmol/L (137-145); Total Protein 5.8 g/dL (6.3-8.2)
[2024-02-08] MEDS: ENOXAPARIN 40 MG/0.4 ML SYRINGE SUBCUT ×2 (08:13→20:33)
[2024-02-08] MEDS: OXYCODONE IR 10 MG TABLET PO ×3 (08:14→20:29)
[2024-02-08] MEDS: TRIAMTERENE/HCTZ 37.5/25 CAPSULE 1 CAP PO (08:15)
[2024-02-08] MEDS: NYSTATIN POWDER 15GM 1 APPLIC TOP (08:15)
[2024-02-08] MEDS: DULOXETINE 30 MG CAPSULE PO (08:25)
--- NOTE | 2024-02-08 08:27 | PC.NURSE ---
Addendum entered by Tamie Junior R.N. 02/08/24 19:29: 1930 Report given to nightshift RN. Plan of care discussed. Addendum entered by Tamie Junior R.N. 02/08/24 14:08: 1349 Condom cath repeatedly dislodge throughout shift. MD made aware regarding difficulty tracking I and O's. Per MD, shirely not recommended at this time. Okay for patient to use brief in regards for monitoring I and O's. Original Note: 3246 Report received from nightshift RN. Patient AAO x's 3. Able to COATS. Condom cath noted, draining yellow urine. 2L NC noted. Patient with large abdomen. Redness noted to BLE. Pain to back rated 7/10, pain medication to be administered. Patient denies numbness and tingling. Call light within reach and bed in lowest position. 3028 Medications administered.
[2024-02-08] MEDS: PREGABALIN 75 MG CAPSULE 300 MG PO ×2 (10:11→20:30)
[2024-02-08] MEDS: PARoxetine 20 MG TABLET 10 MG PO (10:12)
[2024-02-08] MEDS: LOSARTAN 50 MG TABLET PO (10:12)
--- NOTE | 2024-02-08 11:03 | DI.ECHO.S_ITS ---
[facility] +---------+ Hospital : : [address] : : [place] : : [id number] : : Phone: [phone] Echocardiogram Report + :Name: JOSE DILLARD Study Date: 02/08/2024 Height: 67 in : :[facility] ReadingLocation: Weight: 348 lb : : Gender: Male BSA: 2.6 m2 : :: 1945 Age: 78 yrs BP: 108/75 mmHg: :Reason For Study: anasarca :: Performed By: Recruiting And Selection Consultant Samantha Contrerasfield : :Referring: MELISA REGALADO E : + Interpretation Summary The ejection fraction is estimated to be 60-65%. The aortic valve is not well visualized. The aortic valve is grossly normal. There is trace mitral regurgitation. Procedure: A two-dimensional transthoracic echocardiogram with color flow and Doppler was performed. The study quality was technically difficult. The apical views were difficult to obtain and are suboptimal in quality. A contrast injection of Definity was performed to improve assessment of LV function. There is no prior echocardiogram noted for this patient. The patient was in normal sinus rhythm during the exam. Left Ventricle: The left ventricle is normal in size. The estimated left ventricular end diastolic volume based on BSA is 49.5 ml/m2. There is no thrombus. There is no ventricular septal defect visualized. The ejection fraction is estimated to be 60-65%. There are no focal wall motion abnormalities. Diastolic parameters suggest probable normal left ventricular diastolic function and normal filling pressures. Right Ventricle: The right ventricle is not well visualized. Atria: The left atrium grossly appears normal in size. Right atrium not well visualized. There is no Doppler evidence for an interatrial shunt. Mitral Valve: There is mild mitral annular calcification. There is no mitral valve stenosis. There is trace mitral regurgitation. Aortic Valve: The aortic valve is grossly normal. The aortic valve is not well visualized. There is no aortic valve stenosis. No aortic regurgitation is present. Tricuspid Valve: The tricuspid valve leaflets are thin and pliable. There is a trace or physiologic amount of tricuspid regurgitation. Pulmonary artery pressures cannot be estimated because of the lack of a measurable TR jet velocity. Pulmonic Valve: The pulmonic valve is not well visualized. There is no pulmonic valvular regurgitation. Great Vessels: The aortic root is normal size. The ascending aorta could not be visualized. The aortic arch could not be visualized. The inferior vena cava was not visualized. Pericardium/ Pleura There is no pericardial effusion. There is no pleural effusion. MMode/2D Measurements & Calculations LVIDd: 5.0 cm LVOT diam: 2.2 cm LVIDs: 2.9 cm Ao root diam: 3.6 cm FS: 41.3 % EPSS: 0.69 cm IVSd: 1.1 cm LVPWd: 0.89 cm LV nixon. diameter/BSA (cm/m^2): 2.0 LV sys. diameter/BSA (cm/m^2): 1.1 LA A2 area: 22.4 cm2 LA A4 area: 20.6 cm2 LA length (vol): 5.4 cm LA vol: 72.8 ml LA vol index: 28.4 ml/m2 Doppler Measurements & Calculations Ao V2 max: 147.6 cm/sec LVOT Max Anatoliy: 112.0 cm/sec Ao V2 mean: 93.5 cm/sec LV V1 max P.0 mmHg Ao max P.7 mmHg LV V1 VTI: 22.0 cm Ao mean P.9 mmHg AIMEE(I,D): 3.2 cm2 Ao V2 VTI: 25.4 cm AIMEE(V,D): 2.8 cm2 sev ratio: 0.87 AIMEE indexed to BSA (cm^2/m^2): 1.2 MV E max anatoliy: 88.1 cm/sec TR max anatoliy: 280.1 cm/sec MV A max anatoliy: 80.2 cm/sec TR max P.4 mmHg MV E/A: 1.1 PA V2 max: 75.0 cm/sec Med Peak E' Anatoliy: 7.6 cm/sec PA V2 mean: 48.5 cm/sec E/E' med: 11.6 PA mean P.1 mmHg Lat Peak E' Anatoliy: 12.1 cm/sec PA pr(Accel): 27.6 mmHg E/E' lat: 7.3 E/e' average: 9.5 MV dec time: 0.19 sec SV(LVOT): 80.7 ml Reading Physician:04:00 PM
--- NOTE | 2024-02-08 12:21 | OT.IP.EVAL ---
Past Medical History (Last Updated 02/06/24 @ 16:16 by Francisco Whatley MD) TALITA (acute kidney injury) BPH (benign prostatic hyperplasia) Chronic pain Diaphragm paralysis Fibromyalgia Generalized edema (04/27/15) Hypertension Opiate dependence Perianal abscess Surgical History (Last Updated 02/06/24 @ 16:16 by Francisco Whatley MD) History of lumbar laminectomy History of thoracic surgery Occupational Therapy Inpatient Evaluation/Re-Eval M1 PT/OT-IP Prior Functional Status Start: 02/08/24 12:23 Freq: NEEDED Status: Active Protocol: Document 02/08/24 12:24 CGR (Rec: 02/08/24 12:34 CGR [id number]) Medical Review Prior Functional Status Medical History Reviewed Yes Communication Pt is an effective verbal communicator. Mobility and Gait Pt was MOD I with use of 4WW. Activities of Daily Living and IADL's Pt is IND in all ADLs. He shares house work activities with his . Social History Household Members spouse Living Arrangements [facility] Facility Number of Stairs To Enter/Railing? no steps. Home Environment Standard Height Toilet,Walk in Shower Home Equipment Four Wheel Walker,Shower Seat without Backrest,Hand Held Shower,Grab Bars Near Toilet, Grab Bars In Shower Employment Status Retired Additional Social History Comment Pt has an upwalker. M2 OT-IP Current Condition Start: 02/08/24 12:23 Freq: Status: Active Protocol: Document 02/08/24 12:24 CGR (Rec: 02/08/24 12:34 CGR [id number]) Occupational Therapy Current Condition Current Condition Evaluation Date 02/08/24 Treatment Diagnosis perpheral edema, SOB, near syncope Diagnosis Onset Date 02/06/24 M3 OT- IP Subjective and Pain Start: 02/08/24 12:23 Freq: Status: Active Protocol: Document 02/08/24 12:24 CGR (Rec: 02/08/24 12:34 CGR [id number]) OT- Subjective Occupational Therapy Visit Type Type Initial Evaluation Visit Start Time 12:07 Visit Stop Time 12:21 Notes Lunch just arrived so session cut short so pt could eat. OT Pain Assessment Pain When Pain Assessed At Rest Pain Present Pain Present Pain Reported Location Right Back Intensity 7 Scale Used Numeric (0 - 10) Management Techniques Modification of Treatment,Re- positioning,Timing of Activity with Medications M4 OT- IP ADL's Start: 02/08/24 12:23 Freq: Status: Active Protocol: Document 02/08/24 12:24 CGR (Rec: 02/08/24 12:34 CGR [id number]) OT [place] General Evaluation Self-Feeding Ability Independent Comments OT Self-Feeding Comments for lunch OT ADL-Grooming Comments OT Grooming Comments pt declined to perform, his lunch just arrived OT ADL-Oral Care Comments Oral Care Comments pt declined to perform, his lunch just arrived OT ADL-Dressing General Eval Lower Body Dressing Ability Independent Areas Needing Assistance Socks Comments OT Dressing Comments seated in chair OT ADL-Toileting General Evaluation Toileting Ability Independent Comments OT Toileting Comments pt just completed toielting when OT entered. Per aid, pt was IND OT ADL-Bathing Comments OT Bathing Comments not performed M5 OT- IP IADL's Start: 02/08/24 12:23 Freq: Status: Active Protocol: Document 02/08/24 12:24 CGR (Rec: 02/08/24 12:34 CGR [id number]) OT-Instrumental Activities of Daily Living Deficits IADL Deficits Identified No Deficits Home Safety Awareness Awareness of Need for Assistance at Home Good Awareness Ability to Problem Solve Emergency Able to Problem Solve Situations Medication Management Medication Management No Deficits Identified Money Management Money Management No Deficits Identified Meal Preparation Meal Preparation No Deficits Identified Sweetbread Trimmer Sweetbread Trimmer No Deficits Identified M6 OT- IP Functional Cognition Start: 02/08/24 12:23 Freq: Status: Active Protocol: Document 02/08/24 12:24 CGR (Rec: 02/08/24 12:34 CGR [id number]) Cognitive Factors Limiting Selfcare Function Cognitive Ability Level of Alertness Alert Patient Orientation Name,Age,Birthday,Month,Date, Year,Day of Week,Place, Situation Attention Span Ability Capable of Focused Attention, Capable of Sustained Attention Ability to Follow Commands Able to Follow One Step Commands with Increased Time, Able to Follow One Step Commands with Repetition OT- Vision and Hearing OT- Hearing Assessment OT- Hearing Assessment WFL OT- Vision Assessment Vision History Cataracts Visual Acuity Glasses For Reading Visual Attentiveness WFL Occular Pursuits WFL Visual Convergence WFL M7 OT- IP Mobility and Balance Start: 02/08/24 12:23 Freq: Status: Active Protocol: Document 02/08/24 12:24 CGR (Rec: 02/08/24 12:34 CGR [id number]) OT-Transfer Assessment Sit to and From Stand Sit to and from Stand Standby Assistance Transfers Transfer Ability Standby Assistance Technique Transfer Destination Chair,Toilet Transfer Technique Stand Step Pivot Devices Transfer Assistive Devices 4 Wheeled Walker Comments Mobility Comments Pt returned to chair after toileting. OT- Balance Assessment Sitting Balance and Reactions Static Sitting Balance Ability Good Dynamic Sitting Balance Ability Good M8 OT- IP Objective Assessments Start: 02/08/24 12:23 Freq: Status: Active Protocol: Document 02/08/24 12:24 CGR (Rec: 02/08/24 12:34 CGR [id number]) OT Gross Range of Motion Upper Extremity Range of Motion Assessment Right Impaired ROM Impairments R shld limited by pain. Pt has an injury for ~6 months that was to be imaged soon. OT Strength Upper Extremity Strength Assessment Within Functional Limits Comments Strength Comments R shld not tested but otherwise 4+/5 OT- Coordination Assessment Upper Extremity Finger to Nose Test Within Functional Limits Finger Tapping Test Within Functional Limits OT-Muscle Tone Assessment Muscle Tone WNL Yes OT Sensation Assessment Edema Edema Absent Edema Comments absent in UE M9 OT- IP Assessment and Plan Start: 02/08/24 12:23 Freq: Status: Active Protocol: Document 02/08/24 12:24 CGR (Rec: 02/08/24 12:34 CGR [id number]) OT Summary Assessment and Plan Potential Rehabilitation Potential Excellent Analytic Complexity at Evaluation Low Summary OT Impairments Pain,Balance,Functional Mobility,Grooming,Dressing, Bathing,Toilet Transfers, Shower Transfers,Activity Tolerance Progress Towards Goals Progressing Toward Goals Assessment Summary Pt presents as a low complexity evaluation s/p admit for peripheral edema and SOB. Edema is better and pt's breathing is also better. Pt appear to be at his baseline for ADLs and functional mobility but limited in endurance. Pt will benefit from 1-2 more sessions for energy conservation education. Goals Grooming Goal Independent Dressing Goal Independent Toileting Goal Independent Bathing Goal Independent Shower Transfer Goal Independent Patient/Caregiver Education Goal Demonstrate Energy Conservation and Pacing Days to Meet Goals 2 Frequency of Treatment Other frequency 5x per week Treatment Plan OT Treatment Plan ADL Training,Functional Mobility,Patient/Family Education,Discharge Planning Other Treatment Recommendations and Next energy conservation education Treatment Focus Discharge Recommendations OT Discharge Recommendations Home Transportation Needs at Discharge Private Vehicle
--- NOTE | 2024-02-08 15:02 | CM.DPC ---
DCP Cont: Per MD, pt making progress but likely not ready for discharge yet today and Echo ordered and pending and PT/OT ordered. PT pending but per OT pt seems back to baseline as he has improved with his edema and SOB and recommending home with spouse. Plan: SW to follow for plan of discharge home when medically stable with spouse and any further identified discharge planning needs. GENO Limon
--- NOTE | 2024-02-08 15:21 | PT.IIE ---
Current Diagnoses Heart failure, unspecified (02/06/24) Surgical History (Last Updated 02/06/24 @ 16:16 by Francisco Whatley MD) History of lumbar laminectomy History of thoracic surgery Medical History (Last Updated 02/06/24 @ 16:16 by Francisco Whatley MD) TALITA (acute kidney injury) BPH (benign prostatic hyperplasia) Chronic pain Diaphragm paralysis Fibromyalgia Generalized edema (04/27/15) Hypertension Opiate dependence Perianal abscess Physical Therapy Inpatient Evaluation/Re-Eval M1 PT/OT-IP Prior Functional Status Start: 02/08/24 12:23 Freq: NEEDED Status: Active Protocol: Document 02/08/24 14:38 MB (Rec: 02/08/24 15:20 MB [id number]) Medical Review Prior Functional Status Medical History Reviewed Yes Communication Pt is an effective verbal communicator. Mobility and Gait Pt was MOD I with use of 4WW. Activities of Daily Living and IADL's Pt is IND in all ADLs. He shares house work activities with his . Social History Household Members spouse Living Arrangements Alf Facility Number of Floors (Floors) One Floor Number of Stairs To Enter/Railing? no steps. Home Environment Standard Height Toilet,Walk in Shower Home Equipment Four Wheel Walker,Shower Seat without Backrest,Hand Held Shower,Grab Bars Near Toilet, Grab Bars In Shower Employment Status Retired Additional Social History Comment Pt has an upwalker. M2 PT-IP Current Condition Start: 02/08/24 11:30 Freq: NEEDED Status: Active Protocol: Document 02/08/24 14:38 MB (Rec: 02/08/24 15:20 MB [id number]) Physical Therapy Current Condition Current Condition Evaluation Date 02/08/24 Treatment Diagnosis Anasarca and peripheral edema M3 PT-IP Subjective Start: 02/08/24 11:30 Freq: NEEDED Status: Active Protocol: Document 02/08/24 14:38 MB (Rec: 02/08/24 15:20 MB [id number]) Subjective Physical Therapy Visit Type Type Initial Evaluation Visit Start Time 14:38 Visit Stop Time 14:58 Number of MILLER HELPER DISTILLERY Visits 0 Physical Therapy Visit Comments Patient Comments Pt states that he needs to walk to get out of here Therapy Pain Assessment Pain When Pain Assessed At Rest Pain Present Pain Present Pain Reported Location Right Back Scale Used Number not given M4 PT-IP Mobility and Gait Start: 02/08/24 11:30 Freq: NEEDED Status: Active Protocol: Document 02/08/24 14:38 MB (Rec: 02/08/24 15:20 MB [id number]) PT-Bed Mobility Assessment Rolling Level of Assist Standby Assistance Supine to Sit Supine to Sit Standby Assistance,Bedrails Sit to Supine Sit to Supine Standby Assistance,Bedrails Scooting Scooting to Edge of Bed Standby Assistance PT-Transfer Assessment Sit to and From Stand Sit to and from Stand Contact Guard Assistance,1 Person Assistance,Use of Upper Extremities Equipment Transfer Assistive Device Gait Belt,4 Wheeled Walker Orthotic/Prosthetic Devices or Brace: No Transfers Transfer Destination Chair Transfer Ability Level of Assist Standby Assistance Comments Mobility Comments Orthostatic assessment in LUE: supine 132/78, 84; standing 154/79. 94; standing 1' 163/92 , 92. O2 sats remain in the high 90s on 2L O2 with mobility today Gait Assessment Gait Gait Assistance Required: Standby Assistance Distance (Feet) 40 Able to Maintain Weight Bearing Status Yes During Gait Assistive Devices Assistive Device Gait Belt,4 Wheeled Walker Orthotic/Prosthetic Devices or Brace: No Gait Deviations General Gait Pattern Antalgic,Decreased Stride Length,Decreased Feet Clearance,Flexed Trunk,Wide Based Gait Factors Limiting Gait Function Factors Limiting Gait Function Decreased Activity Tolerance, Decreased Strength,Limited Range of Motion,Pain Comments Gait Comments Pt with functional foot drop on the left foot and he walks his sock off d/t inability to clear the foot fully with gait PT-Balance Assessment Sitting Balance and Reactions Static Sitting Balance Ability Good Dynamic Sitting Balance Ability Good Standing Balance and Reactions Static Standing Balance Ability Good Dynamic Standing Balance Ability Fair Device Used Rollator M5 PT-IP Objective Assessments Start: 02/08/24 11:30 Freq: NEEDED Status: Active Protocol: Document 02/08/24 14:38 MB (Rec: 02/08/24 15:20 MB [id number]) Orientation Orientation/Cognition Level of Alertness Alert Orientation Name,Age,Birthday,Month,Date, Year,Day of Week,Place, Situation Language Function Ability No Deficits Noted Safety Awareness Decreased Safety Awareness Memory Description No Deficits Noted Gross Range of Motion Upper Extremity ROM Impairments Defer to OT Lower Extremity ROM Assessment Bilaterally Impaired Impairments Decreased ankle DF and increased PF tone B: pt presents with functional foot drop with gait on the left and he has trouble performing AROM and MMT DF both ankles Strength Lower Extremity Strength Assessment Bilaterally Impaired Comments Strength Comments More weakness left ankle and both are weak with little toe movement on the left foot, B knee extension 3+/5 Coordination Assessment Gross Coordination Gross Coordination Impaired Sensation Assessment Comments Sensation Comments NT Muscle Tone Muscle Tone WNL No Comments Muscle Tone Comments Increased PF tone, worse on the LLE M6 PT-IP Treatment Start: 02/08/24 11:30 Freq: NEEDED Status: Active Protocol: Document 02/08/24 14:38 MB (Rec: 02/08/24 15:20 MB [id number]) Physical Therapy Treatment Education Education Provided Safety M7 PT-IP Assessment and Plan Start: 02/08/24 11:30 Freq: NEEDED Status: Active Protocol: Document 02/08/24 14:38 MB (Rec: 02/08/24 15:20 MB [id number]) PT Summary Assessment and Plan Potential Rehabilitation Potential Fair Status of Condition at Evaluation Evolving Summary Impairments Pain,ROM,Strength,Balance, Coordination,Sensation,Tone, Bed Mobility,Transfers,Gait, Activity Tolerance Progress Towards Goals Slow Progress due to Activity Tolerance Assessment Summary Pt is a 78 y/o male with history of morbid obesity and large pannus who was adm with anasarca and peripheral edema. He con't with left more than right LE erythema and mild edema today. He presents with B ankle weakness, worse on the left and presents with functional foot drop left foot with mobility. He reports history of DDD and spinal changes contributing to weakness. He is able to move with increased effort, flat bed and use of bed rails for bed mobility and no physical assistance from PT. SBA for gait and CGA for transfer. O2 sats on 2L O2 are in the high 90s today with short gait in the room. PT asks pt if he is close to baseline since he walks with rollator/upright walker in independent living at [facility] and he states he is not yet at his baseline. 1- 2 PT treatments and he may benefit from HHPT safety consult at d/c. Goals Bed Mobility Goal Independent Transfer Goal Independent Gait Goal Independent Gait Distance 100 Days to Meet Goals 5 Frequency of Treatment Frequency Of Treatment Once a Day Treatment Plan Physical Therapy Treatment Plan Bed Mobility Training,Transfer Training,Gait Training, Therapeutic Exercise,Balance Retraining,Discharge Planning, Hot or Cold Pack,Neuromuscular Re-ed,Coordination Retraining ,Manual Therapy Precautions Other Precautions O2 Recommendations To Nursing Amount of Assist Needed Standby Assistance Discharge Recommendations PT Discharge Recommendations Home with Assistance,Home Health Transportation Needs at Discharge Private Vehicle,Wheelchair/ Cabulance
--- NOTE | 2024-02-08 17:25 | P.PN_ITS ---
Subjective Subjective Date Patient Seen: 02/07/24 Interval history: He is starting to feel improved, though still dyspnic. BP is improved today. Still on 2L o2 at this time. Exam Vital Signs (past 8 hours): - 02/08/24 10:12 02/08/24 12:00 02/08/24 13:14 Temperature 96.7 F L Pulse Rate 76 79 Respiratory Rate 18 18 Blood Pressure 108/75 120/66 120/66 Pulse Oximetry 96 98 Oxygen Flow Rate 0 02/08/24 15:55 02/08/24 16:50 Temperature 97.7 F Pulse Rate 83 Respiratory Rate 17 Blood Pressure 124/69 116/69 Pulse Oximetry 96 Oxygen Flow Rate 2 Fraction of Inspired Oxygen 28 SaO2/FiO2 Ratio 335 Oxygen Delivery Method Nasal Cannula Oxygen Flow Rate 2 Narrative Exam Narrative: Alert and oriented x3. No apparent distress. Heart is regular rate and rhythm without murmur Lungs are clear to auscultation bilaterally There is 1+ edema of both legs and the lower pannus but this has more skin wrinkling and appears to be slowly improving. Objective Labs 02/06/24 09:00 02/08/24 04:48 Labs: Laboratory Results - last 24 hr 02/08/24 04:48 Sodium 135 L Potassium 4.0 Chloride 93 L Carbon Dioxide 39 H BUN 26 H Creatinine 1.17 Estimated GFR > 60 BUN/Creatinine Ratio 22.2 H Glucose 160 H Calcium 8.3 L Total Bilirubin 0.7 AST 69 H ALT 28 Alkaline Phosphatase 266 H Total Protein 5.8 L Albumin 3.0 L Globulin 2.8 Albumin/Globulin Ratio 1.1 PFSH Medical History (Updated 02/06/24 @ 16:16 by Francisco Whatley MD) Perianal abscess Diaphragm paralysis Hypertension BPH (benign prostatic hyperplasia) Opiate dependence Chronic pain Fibromyalgia TALITA (acute kidney injury) Generalized edema (04/27/15) Surgical History (Updated 02/06/24 @ 16:16 by Francisco Whatley MD) History of lumbar laminectomy History of thoracic surgery Family History Grandfather Hypertension Stroke Social History household members: spouse Smoking Status: Former smoker alcohol intake: current Assessment & Plan Assessment & Plan narrative: This is a 78-year-old male with history of hypertension, fibromyalgia and BPH who presents with anasarca suggestive of congestive heart failure. Anasarca/peripheral edema and pannus edema -check echocardiogram for probable CHF, suspect not uploaded to PACS, will try to obtain paper report. -give Lasix with caution because of evidence for TALITA/CKD, though Cr has improved with furosemide thus far. -continue furosemide 40 mg q8 -monitor electrolytes. TALITA/CKD -unclear Creatinine baseline -Creatinine 1.39 on admission, follow. It is slightly improved to 1.17 today. HTN -Losartan, Prazosin, and diuresis -02/07/2024 decrease prazosin dose 10 mg. BPH -Dutasteride Fibromyalgia -Continue home Pregabalin and Duloxetine -Continue Oxycodone 10 mg TID. -continue buprenorphine patch weekly. -Followed at [facility] Depression/PTSD -Paroxetine, Duloxetine and Prazosin -significant nightmares suppressed on high-dose prazosin. RLS -Ropinorole Elevated LFT -AST 73, ALT 37, Alk Phos 311 -Likely due to hepatic congestion -Follow Code: Full His is his back up decision maker. Lovenox for DVT prevention Dispo: Inpatient, possible discharge home in 1-2 days. Time-Based Coding :: [TOTAL MINUTES] spent with patient and on the chart (including review of chart, obtaining history, exam, reviewing outside data, placing orders, documenting exam and treatment plan, and counseling patient) on [DATE]. Quality VTE Deep Vein Thrombosis/Pulmonary Embolism Present on Admission: No
[2024-02-08] MEDS: PRAZOSIN 1 MG CAPSULE 10 MG PO (20:42)
[2024-02-08] MEDS: SODIUM CHLORIDE 0.9 % 20 ML VIAL 250 ML IV (22:23)
[2024-02-09] VITALS: BP 95/60; PULSE 80; RESP 19; TEMP 36.1; O2SAT 94
[2024-02-09] MEDS: ROPINIROLE 1 MG TABLET PO ×4 (01:10→20:59)
[2024-02-09] MEDS: OXYCODONE IR 10 MG TABLET PO ×4 (01:11→20:58)
--- NOTE | 2024-02-09 01:34 | PC.NURSE ---
2200: Pt found disoriented with low BP (<80 SBP), contacted daisy Boston who gave a verbal order for 250mL bolus NS. Repeated BP every 5-10 minutes, BP gradually improving (see VS). 0120: Contacted MD Boston re: pt's dose of scheduled furosemide d/t low BP (most recent: 91/66 map 74), MD Boston gave verbal order to hold scheduled furosemide.
[2024-02-09] MEDS: ACETAMINOPHEN 325 MG TABLET 650 MG PO ×4 (03:57→20:59)
[2024-02-09 07:50] VITALS: BP 107/56; PULSE 74; RESP 20; TEMP 36.3; O2SAT 97
[2024-02-09] MEDS: DULOXETINE 30 MG CAPSULE PO (08:47)
[2024-02-09] MEDS: PARoxetine 20 MG TABLET 10 MG PO (08:47)
[2024-02-09] MEDS: TRIAMTERENE/HCTZ 37.5/25 CAPSULE 1 CAP PO (08:47)
[2024-02-09] MEDS: PREGABALIN 75 MG CAPSULE 300 MG PO ×2 (08:47→20:43)
[2024-02-09] MEDS: NYSTATIN POWDER 15GM 1 APPLIC TOP (08:48)
[2024-02-09] MEDS: ENOXAPARIN 40 MG/0.4 ML SYRINGE SUBCUT ×2 (08:48→20:43)
[2024-02-09] MEDS: SODIUM CHLORIDE 0.9% 500 ML 1000 ML IV (08:53)
[2024-02-09 09:50] VITALS: O2SAT 95
[2024-02-09 11:00] VITALS: BP 97/56; PULSE 70; RESP 20; TEMP 36.4; O2SAT 95
--- NOTE | 2024-02-09 11:08 | OT.IP.TRT ---
Current Diagnoses Heart failure, unspecified (02/06/24) Occupational Therapy Treatment Note M2 OT-IP Current Condition Start: 02/08/24 12:23 Freq: Status: Active Protocol: Document 02/08/24 12:24 CGR (Rec: 02/08/24 12:34 CGR [id number]) Occupational Therapy Current Condition Current Condition Evaluation Date 02/08/24 Treatment Diagnosis perpheral edema, SOB, near syncope Diagnosis Onset Date 02/06/24 M3 OT- IP Subjective and Pain Start: 02/08/24 12:23 Freq: Status: Active Protocol: Document 02/09/24 11:12 [facility] (Rec: 02/09/24 11:18 [facility] [id number]) OT- Subjective Occupational Therapy Visit Type Type Treatment Note Visit Start Time 10:45 Visit Stop Time 11:08 Occupational Therapy Visit Comments Patient Comments Pt in too much pain at this time and wanting to wait to get up and walk at this time. Pt agreed to do self -care and go over energy conservation strategies. Patient/Caregiver Goals TO go home. OT Pain Assessment Pain When Pain Assessed At Rest Pain Present Pain Present Pain Reported Location Right Back Intensity 7 Scale Used Numeric (0 - 10) M4 OT- IP ADL's Start: 02/08/24 12:23 Freq: Status: Active Protocol: Document 02/09/24 11:12 [facility] (Rec: 02/09/24 11:18 [facility] [id number]) OT ADL-Grooming General Evaluation Grooming Ability Independent Comments OT Grooming Comments WHile seated. OT ADL-Oral Care General Eval Oral Care Ability Independent Comments Oral Care Comments WHile seated. OT ADL-Dressing Comments OT Dressing Comments Pt able to lean forwards to readjust his socks. Went over LB dressing equipment option. OT ADL-Toileting Comments OT Toileting Comments Not performed. OT ADL-Bathing Comments OT Bathing Comments NOt performed. M5 OT- IP IADL's Start: 02/08/24 12:23 Freq: Status: Active Protocol: Document 02/08/24 12:24 CGR (Rec: 02/08/24 12:34 CGR [id number]) OT-Instrumental Activities of Daily Living Deficits IADL Deficits Identified No Deficits Home Safety Awareness Awareness of Need for Assistance at Home Good Awareness Ability to Problem Solve Emergency Able to Problem Solve Situations Medication Management Medication Management No Deficits Identified Money Management Money Management No Deficits Identified Meal Preparation Meal Preparation No Deficits Identified Siene Maker Siene Maker No Deficits Identified M6 OT- IP Functional Cognition Start: 02/08/24 12:23 Freq: Status: Active Protocol: Document 02/09/24 11:12 [facility] (Rec: 02/09/24 11:18 [facility] [id number]) Cognitive Factors Limiting Selfcare Function Cognitive Comments Cognitive Assessment Comments Intact, pt able to go over energy conservation information and able to states will try to follow some advice for couple points. Showed pt transfer pole and that may be another option to assist with safety in his home environment. Pt is considering getting power recliner with a lift component . Pt is open to having home health come to the house, esepcially interested in home health to assist safe set-up at home. M7 OT- IP Mobility and Balance Start: 02/08/24 12:23 Freq: Status: Active Protocol: Document 02/08/24 12:24 CGR (Rec: 02/08/24 12:34 CGR [id number]) OT-Transfer Assessment Sit to and From Stand Sit to and from Stand Standby Assistance Transfers Transfer Ability Standby Assistance Technique Transfer Destination Chair,Toilet Transfer Technique Stand Step Pivot Devices Transfer Assistive Devices 4 Wheeled Walker Comments Mobility Comments Pt returned to chair after toileting. OT- Balance Assessment Sitting Balance and Reactions Static Sitting Balance Ability Good Dynamic Sitting Balance Ability Good M8 OT- IP Objective Assessments Start: 02/08/24 12:23 Freq: Status: Active Protocol: Document 02/08/24 12:24 CGR (Rec: 02/08/24 12:34 CGR [id number]) OT Gross Range of Motion Upper Extremity Range of Motion Assessment Right Impaired ROM Impairments R shld limited by pain. Pt has an injury for ~6 months that was to be imaged soon. OT Strength Upper Extremity Strength Assessment Within Functional Limits Comments Strength Comments R shld not tested but otherwise 4+/5 OT- Coordination Assessment Upper Extremity Finger to Nose Test Within Functional Limits Finger Tapping Test Within Functional Limits OT-Muscle Tone Assessment Muscle Tone WNL Yes OT Sensation Assessment Edema Edema Absent Edema Comments absent in UE M9 OT- IP Assessment and Plan Start: 02/08/24 12:23 Freq: Status: Active Protocol: Document 02/09/24 11:12 [facility] (Rec: 02/09/24 11:18 [facility] [id number]) OT Summary Assessment and Plan Potential Rehabilitation Potential Excellent Analytic Complexity at Evaluation Low Summary OT Impairments Pain,Balance,Functional Mobility,Grooming,Dressing, Bathing,Toilet Transfers, Shower Transfers,Activity Tolerance Progress Towards Goals Progressing Toward Goals Assessment Summary Able to go over equipment needs for ADL's and energy conservation education with pt / Pt will benefit from assist at home and home health. Goals Grooming Goal Independent Dressing Goal Independent Toileting Goal Independent Bathing Goal Independent Shower Transfer Goal Independent Patient/Caregiver Education Goal Demonstrate Energy Conservation and Pacing Days to Meet Goals 2 Frequency of Treatment Other frequency 5x per week Treatment Plan OT Treatment Plan ADL Training,Functional Mobility,Patient/Family Education,Discharge Planning Discharge Recommendations OT Discharge Recommendations Home with Assistance,Home Health Transportation Needs at Discharge Private Vehicle
--- NOTE | 2024-02-09 11:20 | PT.IPTN ---
Current Diagnoses Heart failure, unspecified (02/06/24) Physical Therapy Treatment Note M2 PT-IP Current Condition Start: 02/08/24 11:30 Freq: NEEDED Status: Active Protocol: Document 02/08/24 14:38 MB (Rec: 02/08/24 15:20 MB [id number]) Physical Therapy Current Condition Current Condition Evaluation Date 02/08/24 Treatment Diagnosis Anasarca and peripheral edema M3 PT-IP Subjective Start: 02/08/24 11:30 Freq: NEEDED Status: Active Protocol: Document 02/09/24 11:20 AB (Rec: 02/09/24 12:45 AB [id number]) Subjective Physical Therapy Visit Type Type Treatment Note Visit Start Time 11:20 Visit Stop Time 11:50 Number of CHOCOLATE DIPPER Visits 0 Physical Therapy Visit Comments Patient Comments agreeable to do PT Therapy Pain Assessment Location Bilateral Lower Leg Scale Used pain scale not stated Pain Management Techniques Elevation,Modification of Treatment,Timing of Activity with Medications M4 PT-IP Mobility and Gait Start: 02/08/24 11:30 Freq: NEEDED Status: Active Protocol: Document 02/09/24 11:20 AB (Rec: 02/09/24 12:45 AB [id number]) PT-Transfer Assessment Sit to and From Stand Sit to and from Stand 1 Person Assistance,Use of Upper Extremities Equipment Transfer Assistive Device Gait Belt,4 Wheeled Walker Orthotic/Prosthetic Devices or Brace: No Transfers Transfer Destination Toilet Transfer Technique ambulated Transfer Ability Level of Assist Standby Assistance,Contact Guard Assistance,1 Person Assistance,Use of Upper Extremities Comments Mobility Comments pt sitting on the chair and agreed to do PT. pt requested to use the toilet. BP sittin/56 O2 sat with 1L /min O2 98%. at RA: 95-97%. pt wants to take O2 off for toileting. completed sit to stand from laura x 2 attemps CGA and cues. required increase time to complete. ambulated to the toilet using 4WW SBA to CGA. O2 sat checked: 83% after walking. cued for deep breathing and o2 sat increased to 95%. put supplemental o2 back on before getting up. sit to stand from the toilet using grab bar CGA. pt ambulated in room using 4WW ~ 40 ft SBA to CGA. pt requred to sit on EOB and not on chair. (+) slight knee buckling while ambulating sideways to EOB requiring CGA. O2 sat after ambulation: 83% wtih supplemental O2. cued for deep breathing and o2 sat increased to 93%. call light and table placed next to pt. BP checked: 116/64 informed nurse regarding O2 sat and BP Gait Assessment Gait Gait Assistance Required: Standby Assistance,Contact Guard Assist,1 Person Assist Assistive Devices Assistive Device 4 Wheeled Walker Orthotic/Prosthetic Devices or Brace: No Gait Deviations General Gait Pattern Decreased Stride Length Factors Limiting Gait Function Factors Limiting Gait Function Decreased Activity Tolerance, Decreased Strength,Difficulty Following Directions,Limited Range of Motion,Pain,Poor Balance,Poor Safety Awareness M5 PT-IP Objective Assessments Start: 02/08/24 11:30 Freq: NEEDED Status: Active Protocol: Document 02/08/24 14:38 MB (Rec: 02/08/24 15:20 MB [id number]) Orientation Orientation/Cognition Level of Alertness Alert Orientation Name,Age,Birthday,Month,Date, Year,Day of Week,Place, Situation Language Function Ability No Deficits Noted Safety Awareness Decreased Safety Awareness Memory Description No Deficits Noted Gross Range of Motion Upper Extremity ROM Impairments Defer to OT Lower Extremity ROM Assessment Bilaterally Impaired Impairments Decreased ankle DF and increased PF tone B: pt presents with functional foot drop with gait on the left and he has trouble performing AROM and MMT DF both ankles Strength Lower Extremity Strength Assessment Bilaterally Impaired Comments Strength Comments More weakness left ankle and both are weak with little toe movement on the left foot, B knee extension 3+/5 Coordination Assessment Gross Coordination Gross Coordination Impaired Sensation Assessment Comments Sensation Comments NT Muscle Tone Muscle Tone WNL No Comments Muscle Tone Comments Increased PF tone, worse on the LLE M6 PT-IP Treatment Start: 02/08/24 11:30 Freq: NEEDED Status: Active Protocol: Document 02/09/24 11:20 AB (Rec: 02/09/24 12:45 AB [id number]) Physical Therapy Treatment Education Education Provided Safety M7 PT-IP Assessment and Plan Start: 02/08/24 11:30 Freq: NEEDED Status: Active Protocol: Document 02/09/24 11:20 AB (Rec: 02/09/24 12:45 AB [id number]) PT Summary Assessment and Plan Potential Rehabilitation Potential Fair Summary Impairments Pain,ROM,Strength,Balance, Coordination,Sensation,Tone, Cognition,Bed Mobility, Transfers,Gait,Activity Tolerance Progress Towards Goals Slow Progress due to Medical Issues,Slow Progress due to Activity Tolerance Assessment Summary pt requiring SBA to CGA with ambulation using 4WW. pt presents with decrease activity tolerance with decrease in O2 sat to ~ 83% after ambulation with supplemental O2 on. pt lives at [facility] and will need assistance at home. 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 d/c plan depending on progress. Goals Bed Mobility Goal Independent Transfer Goal Independent,Four Wheeled Walker Gait Goal Independent,Four Wheel Walker Gait Distance 150 Days to Meet Goals 10 Frequency of Treatment Frequency Of Treatment Once a Day Treatment Plan Physical Therapy Treatment Plan Bed Mobility Training,Transfer Training,Gait Training, Therapeutic Exercise,Balance Retraining,Discharge Planning, Hot or Cold Pack,Neuromuscular Re-ed,Coordination Retraining ,Manual Therapy Precautions Other Precautions O2; contact precautions/ hazardous drung precautions Recommendations To Nursing Amount of Assist Needed 1 Person Assist Discharge Recommendations PT Discharge Recommendations Home with / Assist Available,Home Health,Home vs SNF Transportation Needs at Discharge Private Vehicle,Wheelchair/ Cabulance
--- NOTE | 2024-02-09 12:50 | CM.DPC ---
DCP Cont. Reviewed EMR and team rounds for status updates. Pt's blood pressure is too low for d/c today, unless she improves of the course of the day, then will d/c home. Cont. to monitor for final needs.
--- NOTE | 2024-02-09 13:33 | P.PN_ITS ---
Subjective Subjective Date Patient Seen: 02/07/24 Interval history: He was a bit dizzy and hypotensive this morning, improved with 500 mL bolus. Remains on 2L O2. Exam Vital Signs (past 8 hours): - 02/09/24 07:50 02/09/24 07:50 02/09/24 09:50 Temperature 97.4 F L Pulse Rate 74 Respiratory Rate 20 Blood Pressure 107/56 L Pulse Oximetry 97 95 Oxygen Delivery Method Nasal Cannula Nasal Cannula Oxygen Flow Rate 2 2 Fraction of Inspired Oxygen 28 02/09/24 11:00 Temperature 97.6 F Pulse Rate 70 Respiratory Rate 20 Blood Pressure 97/56 L Pulse Oximetry 95 Oxygen Delivery Method Oxygen Flow Rate 2 Fraction of Inspired Oxygen Fraction of Inspired Oxygen 28 SaO2/FiO2 Ratio 339 Oxygen Delivery Method Nasal Cannula Oxygen Flow Rate 2 Narrative Exam Narrative: Alert and oriented x3. No apparent distress. Heart is regular rate and rhythm without murmur Lungs are clear to auscultation bilaterally There is 1+ edema of both legs and the lower pannus but this has more skin wrinkling and appears to be slowly improving. Objective Labs 02/06/24 09:00 02/08/24 04:48 [facility] Medical History (Updated 02/06/24 @ 16:16 by Francisco Whatley MD) Perianal abscess Diaphragm paralysis Hypertension BPH (benign prostatic hyperplasia) Opiate dependence Chronic pain Fibromyalgia TALITA (acute kidney injury) Generalized edema (04/27/15) Surgical History (Updated 02/06/24 @ 16:16 by Francisco Whatley MD) History of lumbar laminectomy History of thoracic surgery Family History Grandfather Hypertension Stroke Social History household members: spouse Smoking Status: Former smoker alcohol intake: current Assessment & Plan Assessment & Plan narrative: This is a 78-year-old male with history of hypertension, fibromyalgia and BPH who presents with anasarca suggestive of congestive heart failure. Anasarca/peripheral edema and pannus edema -TTE unremarkable with normal EF and diastolic function, no valvular pathologies. -was diuresed with furosemide 40 mg IV TID, legs are improved, but now hypotensive this AM s/p 500 mL bolus. -stop Lasix today -monitor electrolytes. -on triamterine / HCTZ TALITA/CKD -unclear Creatinine baseline -Creatinine 1.39 on admission, follow. Slight improvement thus far. HTN -Losartan, Prazosin, and diuresis as noted above -02/07/2024 decrease prazosin dose 10 mg. BPH -Dutasteride Fibromyalgia -Continue home Pregabalin and Duloxetine -Continue Oxycodone 10 mg TID. -continue buprenorphine patch weekly. -Followed at [facility] Depression/PTSD -Paroxetine, Duloxetine and Prazosin -significant nightmares suppressed on high-dose prazosin. RLS -Ropinorole Elevated LFT -AST 73, ALT 37, Alk Phos 311 -Likely due to hepatic congestion -Follow Code: Full His is his back up decision maker. Lovenox for DVT prevention Dispo: Inpatient, possible discharge home in 1-2 days. Time-Based Coding :: [TOTAL MINUTES] spent with patient and on the chart (including review of chart, obtaining history, exam, reviewing outside data, placing orders, documenting exam and treatment plan, and counseling patient) on [DATE]. Quality VTE Deep Vein Thrombosis/Pulmonary Embolism Present on Admission: No
[2024-02-09] MEDS: BUPRENORPHINE 15 EACH TOP (14:31)
[2024-02-09 15:00] VITALS: BP 116/68; PULSE 79; RESP 18; TEMP 36.3; O2SAT 91
[2024-02-09 20:04] VITALS: BP 122/61; PULSE 84; RESP 18; TEMP 36.3; O2SAT 96
[2024-02-09] MEDS: PRAZOSIN 1 MG CAPSULE 10 MG PO (20:46)
[2024-02-10] VITALS: BP 120/62; PULSE 74; RESP 19; TEMP 37; O2SAT 97
[2024-02-10 04:00] VITALS: BP 121/57; PULSE 74; RESP 19; TEMP 37; O2SAT 94
[2024-02-10 06:22] LABS: Add Manual Diff / Slide Review NO; Basophils Absolute Auto 0 /uL (0-100); Basophils Percent Auto 0.8 % (0-2); Eosinophils Absolute Auto 400 /uL (0-450); Eosinophils Percent Auto 8.4 % (2-4); Hematocrit 36.5 % (41-53); Hemoglobin 11.8 g/dL (13.5-17.5); Lymphocytes Absolute Auto 1100 /uL (1100-4500); Lymphocytes Percent Auto 22.3 % (25-40); Mean Corpuscular HGB Conc 32.3 % (30-36); Mean Corpuscular Hemoglobin 29.4 PG (26-34); Monocytes Absolute Auto 600 /uL (0-900); Monocytes Percent Auto 10.9 % (3-14); Neutrophils Absolute Auto 3000 /uL (1500-7000); Neutrophils Percent Auto 57.6 % (50-75); Platelet Count 197 X10^3/uL (150-400); Red Blood Cell Count 4.01 X10^6/uL (4.5-5.9); Red Cell Distribution Width 16.6 % (11.6-14.8); White Blood Cell Count 5.1 X10^3/uL (4.5-11.0)
[2024-02-10 06:41] LABS: BUN Creatinine Ratio 26.4 (6-22); Blood Urea Nitrogen 34 mg/dL (9-20); Calcium 8.5 mg/dL (8.4-10.2); Chloride 90 mmol/L (98-107); Estimated Glomerular Filt Rate 57 mL/min (>60); Glucose 134 mg/dL (80-110); HEMOLYSIS < 15 (0-50); Magnesium 1.8 mg/dL (1.6-2.3); Potassium 3.9 mmol/L (3.4-5.1); Sodium 134 mmol/L (137-145)
[2024-02-10 06:52] LABS: Carbon Dioxide 40 mmol/L (22-32)
--- NOTE | 2024-02-10 07:01 | PC.NURSE ---
Addendum entered by Tila Faustin R.N. 02/10/24 07:28: Dr. Rico notified regarding critical CO2 result. Original Note: Received critical result- CO2 40. Notified Dr. Toro, she requested that I notify the day shift hospitalist.
[2024-02-10] MEDS: ACETAMINOPHEN 325 MG TABLET 650 MG PO (07:17)
[2024-02-10] MEDS: OXYCODONE IR 10 MG TABLET PO (07:18)
[2024-02-10 08:00] VITALS: BP 119/67; PULSE 74; RESP 18; TEMP 36.3; O2SAT 97
[2024-02-10] MEDS: TRIAMTERENE/HCTZ 37.5/25 CAPSULE 1 CAP PO (08:23)
[2024-02-10] MEDS: PREGABALIN 75 MG CAPSULE 300 MG PO (08:23)
[2024-02-10] MEDS: DULOXETINE 30 MG CAPSULE PO (08:23)
[2024-02-10] MEDS: PARoxetine 20 MG TABLET 10 MG PO (08:23)
[2024-02-10] MEDS: ENOXAPARIN 40 MG/0.4 ML SYRINGE SUBCUT (08:24)
[2024-02-10] MEDS: NYSTATIN POWDER 15GM 1 APPLIC TOP (08:24)
[2024-02-10 08:31] VITALS: BP 119/67
[2024-02-10] MEDS: LOSARTAN 50 MG TABLET PO (08:31)
[2024-02-10 09:00] VITALS: O2SAT 96
--- NOTE | 2024-02-10 11:12 | PT.IPTN ---
Current Diagnoses Heart failure, unspecified (02/06/24) Physical Therapy Treatment Note M2 PT-IP Current Condition Start: 02/08/24 11:30 Freq: NEEDED Status: Active Protocol: Document 02/08/24 14:38 MB (Rec: 02/08/24 15:20 MB [id number]) Physical Therapy Current Condition Current Condition Evaluation Date 02/08/24 Treatment Diagnosis Anasarca and peripheral edema M3 PT-IP Subjective Start: 02/08/24 11:30 Freq: NEEDED Status: Active Protocol: Document 02/10/24 11:31 TS (Rec: 02/10/24 11:47 TS [id number]) Subjective Physical Therapy Visit Type Type Treatment Note Visit Start Time 11:12 Visit Stop Time 11:28 Number of DEAN OF GIRLS Visits 1 Physical Therapy Visit Comments Patient Comments Pt found resting in the chair, he si agreeable to PT. M4 PT-IP Mobility and Gait Start: 02/08/24 11:30 Freq: NEEDED Status: Active Protocol: Document 02/10/24 11:31 TS (Rec: 02/10/24 11:47 TS [id number]) PT-Transfer Assessment Sit to and From Stand Sit to and from Stand Contact Guard Assistance,1 Person Assistance,Use of Upper Extremities Equipment Transfer Assistive Device Gait Belt,4 Wheeled Walker Orthotic/Prosthetic Devices or Brace: No Comments Mobility Comments Spo2 96% on RA at rest. STS with 4WW CGA. Pt ambulates in the room ~60' SBA with 4WW, Spo2 desats to ~90% on RA with mobility, pt reports minimal SOB. Respiratory enters room to assess pt's o2 ambulating. Pt was left back in the chair, all needs met. Gait Assessment Gait Gait Assistance Required: Standby Assistance Distance (Feet) 60 Assistive Devices Assistive Device 4 Wheeled Walker Orthotic/Prosthetic Devices or Brace: No Factors Limiting Gait Function Factors Limiting Gait Function Decreased Activity Tolerance, Decreased Strength,Difficulty Following Directions,Limited Range of Motion,Pain,Poor Balance,Poor Safety Awareness PT-Balance Assessment Sitting Balance and Reactions Static Sitting Balance Ability Good Dynamic Sitting Balance Ability Good Standing Balance and Reactions Static Standing Balance Ability Good Dynamic Standing Balance Ability Fair Device Used 4WW M5 PT-IP Objective Assessments Start: 02/08/24 11:30 Freq: NEEDED Status: Active Protocol: Document 02/08/24 14:38 MB (Rec: 02/08/24 15:20 MB [id number]) Orientation Orientation/Cognition Level of Alertness Alert Orientation Name,Age,Birthday,Month,Date, Year,Day of Week,Place, Situation Language Function Ability No Deficits Noted Safety Awareness Decreased Safety Awareness Memory Description No Deficits Noted Gross Range of Motion Upper Extremity ROM Impairments Defer to OT Lower Extremity ROM Assessment Bilaterally Impaired Impairments Decreased ankle DF and increased PF tone B: pt presents with functional foot drop with gait on the left and he has trouble performing AROM and MMT DF both ankles Strength Lower Extremity Strength Assessment Bilaterally Impaired Comments Strength Comments More weakness left ankle and both are weak with little toe movement on the left foot, B knee extension 3+/5 Coordination Assessment Gross Coordination Gross Coordination Impaired Sensation Assessment Comments Sensation Comments NT Muscle Tone Muscle Tone WNL No Comments Muscle Tone Comments Increased PF tone, worse on the LLE M6 PT-IP Treatment Start: 02/08/24 11:30 Freq: NEEDED Status: Active Protocol: Document 02/10/24 11:31 TS (Rec: 02/10/24 11:47 [id number]) Physical Therapy Treatment Education Education Provided Safety M7 PT-IP Assessment and Plan Start: 02/08/24 11:30 Freq: NEEDED Status: Active Protocol: Document 02/10/24 11:31 TS (Rec: 02/10/24 11:47 [id number]) PT Summary Assessment and Plan Potential Rehabilitation Potential Fair Summary Impairments Pain,ROM,Strength,Balance, Coordination,Sensation,Tone, Cognition,Bed Mobility, Transfers,Gait,Activity Tolerance Progress Towards Goals Slow Progress due to Medical Issues,Slow Progress due to Activity Tolerance Assessment Summary Pt is making some progress with his mobility but is limited by activity tolerance. He progressed his gait to ~60 with use of 4WW. Spo2 desats to low 90's with mobility, 96% at rest. Pt is slightly unsteady with gait, has no LOB . PT is recommending home with assist. Goals Bed Mobility Goal Independent Transfer Goal Independent,Four Wheeled Walker Gait Goal Independent,Four Wheel Walker Gait Distance 150 Days to Meet Goals 10 Frequency of Treatment Frequency Of Treatment Once a Day Treatment Plan Physical Therapy Treatment Plan Bed Mobility Training,Transfer Training,Gait Training, Therapeutic Exercise,Balance Retraining,Discharge Planning, Hot or Cold Pack,Neuromuscular Re-ed,Coordination Retraining ,Manual Therapy Precautions Other Precautions O2; contact precautions/ hazardous drung precautions Recommendations To Nursing Amount of Assist Needed 1 Person Assist Discharge Recommendations PT Discharge Recommendations Home with 15/09 Assist Available,Home Health Transportation Needs at Discharge Private Vehicle,Wheelchair/ Cabulance
--- NOTE | 2024-02-10 11:30 | PM.DS.1 ---
History of Present Illness History of Present Illness Chief complaint: Near Syncope Narrative: This is a 78-year-old male with fibromyalgia, BPH and hypertension who presents with 1 day of shortness of breath, increased leg swelling and trouble walking. At baseline at home he uses a walker but his legs are not swollen. He has a very large pannus which is also quite swollen. He has no cardiac history. He is on doses of several medications for fibromyalgia. He says that 2 weeks ago he was treated with an unknown antibiotic for a leg infection which cleared up. His troponin is 0.06 with a BNP greater than 4500. 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 Discharge Providers Provider Date of admission: 02/06/24 13:41 Discharge Date: 02/10/24 Consults: 02/08/24 10:38 Consult to Occupational Therapy Evaluate & Treat Comment: Physician Instructions: Evaluate and treat Consult to Physical Therapy Evaluate & Treat Comment: Physician Instructions: Evaluate and Treat Discharge provider: Daniel Rico MD Summary Hospital Course Discharge Diagnosis: 1. Acute on chronic diastolic heart failure, present on admission and improved. 2. Acute hypoxic respiratory failure, present on admission and resolved. 3. Acute kidney injury, present on admission and improved. 4. Chronic kidney disease, present on admission and active. 5. Hypertension, present on admission and active. 6. BPH, present on admission and active. 7. Fibromyalgia, present on admission and active. 8. Depression, present on admission and active. 9. PTSD, present on admission and active. 10. RLS, present on admission and active. 11. Elevated transaminases, likely related to hepatic congestion, present on admission and active. 12. Morbid obesity with BMI of 54, present on admission and active. Hospital Course: The patient was admitted and diuresed. He would improvement of his volume status and it was able to come off from oxygen. He did develop a metabolic alkalosis from diuresis as well as mild hypotension and required cessation of diuretics and a small amount of IV fluid back on February 08. He was echo revealed an EF of 60-65% with trace mitral regurgitation. On the day of discharge he requested discharge home. He denied any chest pain. He was off oxygen and did not desaturate when evaluated by respiratory therapy. I felt he was stable for discharge home with ongoing slower diuresis with oral Lasix. We will stop his triamterene and started him on a loop diuretic at home. He will require close follow up and re-evaluation with a BNP. Status at Discharge Cognitive/behavioral status at discharge: oriented Functional status at discharge: independent ambulation Overall status at discharge: patient is back to baseline Time Spent with Patient Time spent: Greater than 30 minutes Exam Vital Signs (past 8 hours): - 02/10/24 04:00 02/10/24 08:00 02/10/24 08:00 Temperature 98.6 F 97.4 F L Pulse Rate 74 74 Respiratory Rate 19 18 Blood Pressure 121/57 L 119/67 Pulse Oximetry 94 97 Oxygen Delivery Method Nasal Cannula Oxygen Flow Rate 2 2 Fraction of Inspired Oxygen 02/10/24 08:31 02/10/24 09:00 Temperature Pulse Rate Respiratory Rate Blood Pressure 119/67 Pulse Oximetry 96 Oxygen Delivery Method Nasal Cannula Oxygen Flow Rate 2 Fraction of Inspired Oxygen 28 Fraction of Inspired Oxygen 28 SaO2/FiO2 Ratio 342 Oxygen Delivery Method Nasal Cannula Oxygen Flow Rate 2 Narrative Exam Narrative: NAD, alert and oriented. Fluent speech. Lungs are clear, normal rate and effort. Heart is regular, no murmur gallop or rub. Abdomen is soft, non distended. Extremities are notable for ongoing edema. Objective Imaging Multiple studies:: Radiologist's impression: Chest x-ray: No acute cardiopulmonary abnormality is seen. Echo: The ejection fraction is estimated to be 60-65%. The aortic valve is not well visualized. The aortic valve is grossly normal. There is trace mitral regurgitation. Labs 02/10/24 05:29 02/10/24 05:29 Labs: Laboratory Results - last 24 hr 02/10/24 05:29 WBC 5.1 RBC 4.01 L Hgb 11.8 L Hct 36.5 L MCV 91.0 MCH 29.4 MCHC 32.3 RDW 16.6 H Plt Count 197 Neut % (Auto) 57.6 Lymph % (Auto) 22.3 L [place] % (Auto) 10.9 Eos % (Auto) 8.4 H Baso % (Auto) 0.8 Neut # (Auto) 3000 Lymph # (Auto) 1100 [place] # (Auto) 600 Eos # (Auto) 400 Baso # (Auto) 0 Sodium 134 L Potassium 3.9 Chloride 90 L Carbon Dioxide 40 H* BUN 34 H Creatinine 1.29 H Estimated GFR 57 L BUN/Creatinine Ratio 26.4 H Glucose 134 H Calcium 8.5 Magnesium 1.8 PFSH Medical History Perianal abscess Diaphragm paralysis Hypertension BPH (benign prostatic hyperplasia) Opiate dependence Chronic pain Fibromyalgia TALITA (acute kidney injury) Generalized edema (04/27/15) Surgical History History of lumbar laminectomy History of thoracic surgery Family History Grandfather Hypertension Stroke Social History household members: spouse Smoking Status: Former smoker alcohol intake: current Discharge Assessment & Plan Assessment and Plan Assessment: 1. Acute on chronic diastolic heart failure, present on admission and improved. 2. Acute hypoxic respiratory failure, present on admission and resolved. 3. Acute kidney injury, present on admission and improved. 4. Chronic kidney disease, present on admission and active. 5. Hypertension, present on admission and active. 6. BPH, present on admission and active. 7. Fibromyalgia, present on admission and active. 8. Depression, present on admission and active. 9. PTSD, present on admission and active. 10. RLS, present on admission and active. 11. Elevated transaminases, likely related to hepatic congestion, present on admission and active. 12. Morbid obesity with BMI of 54, present on admission and active. Plan of Treatment: Discharge home with institution of Lasix 40 mg daily and close follow up with PCP. He was advised to take daily weights, and advice his doctor his weight is going up. He will also follow up for medical attention for increased shortness a breath or orthopnea. Discharge Plan Discharge Plan Patient Disposition: Home Health Service Discharge orders & Medications Prescriptions: New furosemide [Lasix] 40 mg tablet 40 mg PO DAILY Qty: 14 0RF Continued methylphenidate HCl [Concerta] 36 MG tablet extended release 24hr 36 mg PO SEE INSTRUCTIONS Qty: 28 0RF pregabalin [Lyrica] 225 MG capsule 225 mg PO TID Qty: 84 1RF dutasteride [Avodart] 0.5 MG capsule 0.5 mg PO QDAY Qty: 90 1RF ondansetron HCl 4 mg tablet 4 mg PO Q8H PRN (Reason: Nausea) duloxetine 30 mg capsule,delayed release(DR/EC) 30 mg PO DAILY oxycodone 10 mg tablet 10 mg PO 3XD PRN (Reason: Pain (Scale Score 7-10)) miconazole nitrate [Antifungal (miconazole)] 2 % Cream 1 applic TOPICAL DAILY buprenorphine 15 mcg/hour Patch Weekly 15 mcg transdermal WEEKLY prazosin 5 mg Capsule 10 mg PO BEDTIME Patient Comments: Confirmed with patient and his that he only takes 2 x 5mg caps = 10mg at bedtime (not 14mg as previously recorded) Discontinued triamterene-hydrochlorothiazid [Dyazide] 37.5 MG/25 MG capsule 1 cap PO QDAY Qty: 90 1RF Diet/Activity/Treatments Diet: Low-sodium Diet comment: Fluid restrict to 1.5 liters of fluid a day. Visit Report/Discharge Packet Stand Alone Forms: Patient Portal/API, Stroke Signs & Symptoms Quality VTE Deep Vein Thrombosis/Pulmonary Embolism Present on Admission: No
[2024-02-10 12:00] VITALS: BP 133/45; PULSE 72; RESP 18; TEMP 36.7; O2SAT 93
--- NOTE | 2024-02-10 12:58 | CM.DPC ---
DCP Discharge Home with HH Per MD, pt still having some SOB and desatting with exertion and RT assess for home O2 orders placed and otherwise pt medically stable to discharge home today and discharge orders placed. Per PT, pt still de-conditioned and could benefit from HH at d/c. Per RT, pt assessed and does not qualify for new home oxygen at this time. SW met bedside with pt and explained role and he confirms his preference was to discharge home today and that his is back at their apartment at [facility] and does not drive but pt already confirmed that [facility] can provide transport home for him today around 1400. Pt confirms he is below baseline independence but feels much better today as he states it's been about a month of a decline with his fluid overload. Pt states he used HH in the past but not in [place] and is agreeable with HH and no HH preference after reviewing HH Choice List. Pt feels only HH RN/PT needed at this time. SW made new referral to [facility] to review and F2F completed and scanned and orders placed for HH RN/PT. RN updated and aware. Plan: Patient to d/c home today via [facility] transport around 1400 and new [facility] referral made. GENO Limon
== END 2024-02-10 14:15 | disposition home health service (06) | DRG 291 ==
LOC: ED 13:09 → AC 13:46
PROVIDERS: Internal Medicine; Admitting Provider Family Medicine; Emergency Provider Emergency Medicine; Referring Provider Emergency Medicine; Visit Provider Family Medicine
DX: I13.0 Hypertensive heart and chronic kidney disease with heart failure and stage 1 through stage 4 chronic kidney disease, or unspecified chronic kidney disease (principal); I50.33 Acute on chronic diastolic (congestive) heart failure; J96.01 Acute respiratory failure with hypoxia; N17.9 Acute kidney failure, unspecified; Z68.43 Body mass index [BMI] 50.0-59.9, adult; E87.3 Alkalosis; E65 Localized adiposity; N18.9 Chronic kidney disease, unspecified; N40.0 Benign prostatic hyperplasia without lower urinary tract symptoms; M79.7 Fibromyalgia; F32.A Depression, unspecified; F43.10 Post-traumatic stress disorder, unspecified; G25.81 Restless legs syndrome; I95.9 Hypotension, unspecified; K76.1 Chronic passive congestion of liver; E66.01 Morbid (severe) obesity due to excess calories; T50.2X5A Adverse effect of carbonic-anhydrase inhibitors, benzothiadiazides and other diuretics, initial encounter; Z87.891 Personal history of nicotine dependence
CPT/HCPCS: 36415; 71045; 80048; 80053; 82550; 83690; 83735; 83880; 84484; 85025; 93005; 93306; 94618; 94760; 94762; 96374; 97116; 97161; 97165; 97530; 97535; 99284; 99285; J1650; J1940; Q9957

== ENCOUNTER 2024-03-25 05:20 | Emergency (ER) | payer MEDICARE, OTHER, SELFPAY ==
[2024-02-06 14:53] VITALS: BMI 54.5
[2024-03-25] VITALS (14 sets, daily range): BP systolic 182–209; BP diastolic 102–122; PULSE 64–89; RESP 16–21; TEMP 36.8; O2SAT 91–95; BMI 49.4
--- NOTE | 2024-03-25 05:21 | ED_ITS ---
HPI - General Adult <Fany Lam MD - Last Filed: 03/26/24 01:46> General Chief complaint: Nausea/Vomiting/Diarrhea Stated complaint: flu symptoms Time Seen by Provider: 03/25/24 05:20 History of Present Illness HPI narrative: 78-year-old male with history of congestive heart failure, diabetes, morbid obesity presents by EMS from home for 1.5 days of nausea, vomiting, generalized abdominal pain. Patient states it is a ?pressure? sensation across his abdomen. 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 Also reports remote hx of Right diaphragmatic fixation. Related Data Home Medications Medication Instructions Recorded Confirmed buprenorphine 15 mcg/hour weekly 15 mcg transdermal WEEKLY 02/06/24 02/06/24 transdermal patch duloxetine 30 mg capsule,delayed 30 mg PO DAILY 02/06/24 02/06/24 release miconazole nitrate 2 % topical 1 applic topical DAILY 02/06/24 02/06/24 cream (Antifungal (miconazole)) ondansetron HCl 4 mg tablet 4 mg PO Q8H PRN Nausea 02/06/24 02/06/24 oxycodone 10 mg tablet 10 mg PO 3XD PRN Pain (Scale Score 02/06/24 02/06/24 7-10) prazosin 5 mg capsule 10 mg PO BEDTIME 02/07/24 02/07/24 Previous Rx's Medication Instructions Recorded methylphenidate HCl 36 mg 36 mg PO SEE INSTRUCTIONS #28 tabs 04/17/16 tablet,extended release 24 hr (Concerta) pregabalin 225 mg capsule (Lyrica) 225 mg PO TID #84 caps 04/17/16 dutasteride 0.5 mg capsule 0.5 mg PO QDAY #90 caps 05/09/16 (Avodart) furosemide 40 mg tablet (Lasix) 40 mg PO DAILY #14 tabs 02/10/24 ondansetron 4 mg disintegrating 4 mg PO Q8H PRN nausea and 03/25/24 tablet vomiting 5 days #15 tabs Allergies Allergy/AdvReac Type Severity Reaction Status Date / Time clavulanic acid Allergy Intermediate DIARRHEA Verified 03/25/24 06:19 [CLAVULANIC ACID] hydrocodone [HYDROCODONE] Allergy Intermediate HALLUCINATI Verified 03/25/24 06:19 ONS hydromorphone [HYDROMORPHONE] Allergy Intermediate HALLUCINATI Verified 03/25/24 06:19 ONS phenazopyridine AdvReac Mild nausea Verified 03/25/24 06:19 [From PYRIDIUM] Patient History <Fany Lam MD - Last Filed: 03/26/24 01:46> Medical History Perianal abscess Diaphragm paralysis Hypertension BPH (benign prostatic hyperplasia) Opiate dependence Chronic pain Fibromyalgia TALITA (acute kidney injury) Generalized edema (04/27/15) Surgical History History of lumbar laminectomy History of thoracic surgery Family History Grandfather Hypertension Stroke Social History household members: spouse Smoking Status: Former smoker alcohol intake: current Smoking Status: Former smoker alcohol intake frequency: holidays/special occasions only Exam <Fany Lam MD - Last Filed: 03/26/24 01:46> Initial Vital Signs Initial Vital Signs: Vital Signs Pulse Rate 80 03/25/24 05:24 Pulse Oximetry 93 03/25/24 05:24 Const: Awake, alert, appears chronically unwell, frail, debilitated Cardiac: regular rate, regular rhythm RESP: unlabored, clear bilaterally, no wheezing GI: Soft, generalized tenderness to palpation MSK: trace edema to knees Skin: Warm, Dry, intact, venous stasis changes of BLE Neuro: AO x3, CN II-XII grossly intact, moves all extremities <Inder Vee DO - Last Filed: 03/25/24 09:27> Initial Vital Signs Initial Vital Signs: Vital Signs Pulse Rate 80 03/25/24 05:24 Pulse Oximetry 93 03/25/24 05:24 Course <Fany Lam MD - Last Filed: 03/26/24 01:46> Orders Ordered: Discontinued Medications Diphenhydramine HCl (Diphenhydramine 50 Mg/Ml Vial) 25 mg IV NOW ONE Stop: 03/25/24 05:47 Last Admin: 03/25/24 05:51 Dose: 25 mg Documented By: CHRISTIANE Morphine Sulfate (Morphine 4 Mg/Ml Inj) 4 mg IV NOW ONE Stop: 03/25/24 05:26 Last Admin: 03/25/24 05:37 Dose: 4 mg Documented By: ISABEL Ondansetron HCl (Ondansetron 4 Mg/2 Ml Inj) 4 mg IV NOW ONE Stop: 03/25/24 05:26 Last Admin: 03/25/24 05:37 Dose: 4 mg Documented By: ISABEL Ondansetron HCl (Ondansetron 4 Mg/2 Ml Inj) 4 mg IV NOW ONE Stop: 03/25/24 08:14 Last Admin: 03/25/24 08:27 Dose: 4 mg Documented By: AJ Vital Signs Vital signs: Vital Signs - 8 hr 03/25/24 05:24 03/25/24 05:25 03/25/24 05:25 Temperature Pulse Rate 80 68 Respiratory Rate Blood Pressure 209/102 H Pulse Oximetry 93 94 Oxygen Delivery Method 03/25/24 05:30 03/25/24 05:30 03/25/24 05:30 Temperature 98.3 F Pulse Rate 64 64 Respiratory Rate 20 21 Blood Pressure 209/102 H 194/103 H Pulse Oximetry 95 94 Oxygen Delivery Method Room Air 03/25/24 06:00 03/25/24 06:00 03/25/24 06:30 Temperature Pulse Rate 72 80 Respiratory Rate 16 Blood Pressure 193/109 H Pulse Oximetry 95 Oxygen Delivery Method 03/25/24 07:05 03/25/24 07:30 03/25/24 07:49 Temperature Pulse Rate 64 78 Respiratory Rate Blood Pressure 182/108 H Pulse Oximetry 92 Oxygen Delivery Method Room Air 03/25/24 07:49 03/25/24 08:00 03/25/24 08:01 Temperature Pulse Rate 79 78 Respiratory Rate Blood Pressure 186/122 H Pulse Oximetry 94 91 Oxygen Delivery Method Room Air 03/25/24 08:01 Temperature Pulse Rate 80 Respiratory Rate Blood Pressure Pulse Oximetry 92 Oxygen Delivery Method <Inder Vee DO - Last Filed: 03/25/24 09:27> Orders Ordered: Discontinued Medications Diphenhydramine HCl (Diphenhydramine 50 Mg/Ml Vial) 25 mg IV NOW ONE Stop: 03/25/24 05:47 Last Admin: 03/25/24 05:51 Dose: 25 mg Documented By: CHRISTIANE Morphine Sulfate (Morphine 4 Mg/Ml Inj) 4 mg IV NOW ONE Stop: 03/25/24 05:26 Last Admin: 03/25/24 05:37 Dose: 4 mg Documented By: ISABEL Ondansetron HCl (Ondansetron 4 Mg/2 Ml Inj) 4 mg IV NOW ONE Stop: 03/25/24 05:26 Last Admin: 03/25/24 05:37 Dose: 4 mg Documented By: ISABEL Ondansetron HCl (Ondansetron 4 Mg/2 Ml Inj) 4 mg IV NOW ONE Stop: 03/25/24 08:14 Last Admin: 03/25/24 08:27 Dose: 4 mg Documented By: AJ Vital Signs Vital signs: Vital Signs - 8 hr 03/25/24 05:24 03/25/24 05:25 03/25/24 05:25 Temperature Pulse Rate 80 68 Respiratory Rate Blood Pressure 209/102 H Pulse Oximetry 93 94 Oxygen Delivery Method 03/25/24 05:30 03/25/24 05:30 03/25/24 05:30 Temperature 98.3 F Pulse Rate 64 64 Respiratory Rate 20 21 Blood Pressure 209/102 H 194/103 H Pulse Oximetry 95 94 Oxygen Delivery Method Room Air 03/25/24 06:00 03/25/24 06:00 03/25/24 06:30 Temperature Pulse Rate 72 80 Respiratory Rate 16 Blood Pressure 193/109 H Pulse Oximetry 95 Oxygen Delivery Method 03/25/24 07:05 03/25/24 07:30 03/25/24 07:49 Temperature Pulse Rate 64 78 Respiratory Rate Blood Pressure 182/108 H Pulse Oximetry 92 Oxygen Delivery Method Room Air 03/25/24 07:49 03/25/24 08:00 03/25/24 08:01 Temperature Pulse Rate 79 78 Respiratory Rate Blood Pressure 186/122 H Pulse Oximetry 94 91 Oxygen Delivery Method Room Air 03/25/24 08:01 Temperature Pulse Rate 80 Respiratory Rate Blood Pressure Pulse Oximetry 92 Oxygen Delivery Method Medical Decision Making <Fany Lam MD - Last Filed: 03/26/24 01:46> Lab Data 03/25/24 05:40 03/25/24 05:40 Labs: Lab Results 03/25/24 03/25/24 Range/Units 05:40 06:35 WBC 6.5 (4.5-11.0) X10^3/uL RBC 5.20 (4.5-5.9) X10^6/uL Hgb 14.9 (13.5-17.5) g/dL Hct 46.0 (41-53) % MCV 88.4 (80-100) fL MCH 28.7 (26-34) PG MCHC 32.5 (30-36) % RDW 15.9 H (11.6-14.8) % Plt Count 187 (150-400) X10^3/uL Neut % (Auto) 76.7 H (50-75) % Lymph % (Auto) 15.1 L (25-40) % [place] % (Auto) 5.4 (3-14) % Eos % (Auto) 1.9 L (2-4) % Baso % (Auto) 0.9 (0-2) % Neut # (Auto) 5000 (3789-6373) /uL Lymph # (Auto) 1000 L (5464-7082) /uL [place] # (Auto) 300 (0-900) /uL Eos # (Auto) 100 (0-450) /uL Baso # (Auto) 100 (0-100) /uL PT 12.0 (9.4-12.5) SECONDS INR 1.1 (0.9-1.3) Sodium 134 L (137-145) mmol/L Potassium 4.6 (3.4-5.1) mmol/L Chloride 98 (98-107) mmol/L Carbon Dioxide 30 (22-32) mmol/L BUN 17 (9-20) mg/dL Creatinine 0.90 (0.66-1.25) mg/dL Estimated GFR > 60 (>60) mL/min BUN/Creatinine Ratio 18.9 (6-22) Glucose 189 H (80-110) mg/dL Lactate 1.5 (0.7-2.1) mmol/L Calcium 9.7 (8.4-10.2) mg/dL Magnesium 1.9 (1.6-2.3) mg/dL Total Bilirubin 0.8 (0.2-1.3) mg/dL AST 76 H (17-59) IU/L ALT 31 (<50) IU/L Alkaline Phosphatase 215 H (38-126) U/L Total Creatine Kinase 118 (55-170) U/L Troponin I < 0.012 (0.01-0.034) ng/mL Total Protein 7.7 (6.3-8.2) g/dL Albumin 4.2 (3.5-5.0) g/dL Globulin 3.5 (1.7-4.1) g/dL Albumin/Globulin Ratio 1.2 (1.0-2.8) Lipase 133 (23-300) U/L Procalcitonin 0.066 (<0.5) ng/mL Urine Color Yellow Urine Appearance Clear Urine pH 8.0 (4.5-8.0) Ur Specific [place] 1.015 (1.000-1.035) Urine Protein Negative (Negative) Urine Glucose (UA) Negative (Negative) g/dL Urine Ketones 1+ H (NEGATIVE) Urine Occult Blood Negative (Negative) Urine Nitrate Negative (Negative) Urine Bilirubin Negative (NEGATIVE) Urine Urobilinogen 0.2 (0.2) E.U./dL Ur Leukocyte Esterase Negative (NEGATIVE) Urine RBC None seen (0-5/HPF) Urine WBC None seen (0-5/HPF) Ur Squamous Epith Cells None seen (0-5/HPF) Urine Bacteria None seen (None) Ur Culture Indicated? Cult not indicated Vol Urine Centrifuged 10ml (spun) MDM Narrative Additional Information: Chronically unwell appearing patient with the above symptoms. Abdomen is soft, patient reports generalized tenderness to deep palpation diffuse across his abdomen. Laboratory work, pain medications, nausea medications ordered. Labs reviewed, no significant abnormalities identified. WBC count 6.5, hgb 14.9, platelet count 187, sodium 134, potassium 4.6, creatinine 0.9, T. bili 0.8 AST 76, ALT 31, alk phos 215. Liver enzymes consistent with previous values. Pending CT imaging. Care of patient to be signed to daytime physician at 0700 <Inder Vee DO - Last Filed: 03/25/24 09:27> Lab Data Labs: Lab Results 03/25/24 03/25/24 Range/Units 05:40 06:35 WBC 6.5 (4.5-11.0) X10^3/uL RBC 5.20 (4.5-5.9) X10^6/uL Hgb 14.9 (13.5-17.5) g/dL Hct 46.0 (41-53) % MCV 88.4 (80-100) fL MCH 28.7 (26-34) PG MCHC 32.5 (30-36) % RDW 15.9 H (11.6-14.8) % Plt Count 187 (150-400) X10^3/uL Neut % (Auto) 76.7 H (50-75) % Lymph % (Auto) 15.1 L (25-40) % [place] % (Auto) 5.4 (3-14) % Eos % (Auto) 1.9 L (2-4) % Baso % (Auto) 0.9 (0-2) % Neut # (Auto) 5000 (1588-9256) /uL Lymph # (Auto) 1000 L (6420-8151) /uL [place] # (Auto) 300 (0-900) /uL Eos # (Auto) 100 (0-450) /uL Baso # (Auto) 100 (0-100) /uL PT 12.0 (9.4-12.5) SECONDS INR 1.1 (0.9-1.3) Sodium 134 L (137-145) mmol/L Potassium 4.6 (3.4-5.1) mmol/L Chloride 98 (98-107) mmol/L Carbon Dioxide 30 (22-32) mmol/L BUN 17 (9-20) mg/dL Creatinine 0.90 (0.66-1.25) mg/dL Estimated GFR > 60 (>60) mL/min BUN/Creatinine Ratio 18.9 (6-22) Glucose 189 H (80-110) mg/dL Lactate 1.5 (0.7-2.1) mmol/L Calcium 9.7 (8.4-10.2) mg/dL Magnesium 1.9 (1.6-2.3) mg/dL Total Bilirubin 0.8 (0.2-1.3) mg/dL AST 76 H (17-59) IU/L ALT 31 (<50) IU/L Alkaline Phosphatase 215 H (38-126) U/L Total Creatine Kinase 118 (55-170) U/L Troponin I < 0.012 (0.01-0.034) ng/mL Total Protein 7.7 (6.3-8.2) g/dL Albumin 4.2 (3.5-5.0) g/dL Globulin 3.5 (1.7-4.1) g/dL Albumin/Globulin Ratio 1.2 (1.0-2.8) Lipase 133 (23-300) U/L Procalcitonin 0.066 (<0.5) ng/mL Urine Color Yellow Urine Appearance Clear Urine pH 8.0 (4.5-8.0) Ur Specific [place] 1.015 (1.000-1.035) Urine Protein Negative (Negative) Urine Glucose (UA) Negative (Negative) g/dL Urine Ketones 1+ H (NEGATIVE) Urine Occult Blood Negative (Negative) Urine Nitrate Negative (Negative) Urine Bilirubin Negative (NEGATIVE) Urine Urobilinogen 0.2 (0.2) E.U./dL Ur Leukocyte Esterase Negative (NEGATIVE) Urine RBC None seen (0-5/HPF) Urine WBC None seen (0-5/HPF) Ur Squamous Epith Cells None seen (0-5/HPF) Urine Bacteria None seen (None) Ur Culture Indicated? Cult not indicated Vol Urine Centrifuged 10ml (spun) Imaging Data CT scan - abdomen/pelvis: Radiologist's Impression: [place] [address] CT Scan Report Signed Patient: Felix Zarco MR#: [id number] : 1945 Acct:[id number] Age/Sex: 78 / M Date of Service: 03/25/24 Loc: ED Accession Number: [id number] Procedure: CT abdomen pelvis w con Ordering Provider: Fany Lam MD PROCEDURE: CT ABDOMEN PELVIS W CON INDICATIONS: CENTRAL ABD PRESSURE, N/V TECHNIQUE: After the administration of intravenous contrast, axial sections acquired from the lung bases to the pubic symphysis. Coronal and sagittal reformats were performed. For radiation dose reduction, the following was used: automated exposure control, adjustment of mA and/or kV according to patient size. COMPARISON: [facility], CT, IVP (ABD & PEL WWO CONTRAST), 08/28/2015, 13:12. FINDINGS: Image quality: Diagnostic. Lower Chest: No significant findings. ABDOMEN: Liver: No solid mass. Steatosis. Gallbladder: No radiopaque gallstones or wall thickening. Biliary ducts: No biliary dilation. Pancreas: No ductal dilation. Spleen: Size is within normal limits. Adrenal Glands: No adrenal nodules. Kidneys and Ureters: No hydronephrosis. No solid mass. Bilateral simple renal cysts. Stomach and Bowel: Normal colonic caliber, without significant wall thickening. Peritoneum: No abnormal intraperitoneal fluid. No free air. Ventral Wall: No significant ventral hernia. Abdominal Nodes: No retroperitoneal or mesenteric adenopathy by size criteria. Vessels: Aorta and inferior vena cava are normal in size. PELVIS: Pelvic Organs: Unremarkable. Bladder: No bladder wall thickening, accounting for underdistention. Pelvic Nodes: No enlarged lymph nodes. Miscellaneous: No inguinal hernias are seen. Bones: No aggressive osseous abnormality. Significant multilevel degenerative change. IMPRESSION: No visualized acute intra-abdominal pelvic process. Hepatic steatosis. MDM Narrative Additional Information: Chronically unwell appearing patient with the above symptoms. Abdomen is soft, patient reports generalized tenderness to deep palpation diffuse across his abdomen. Laboratory work, pain medications, nausea medications ordered. Labs reviewed, no significant abnormalities identified. WBC count 6.5, hgb 14.9, platelet count 187, sodium 134, potassium 4.6, creatinine 0.9, T. bili 0.8 AST 76, ALT 31, alk phos 215. Liver enzymes consistent with previous values. Pending CT imaging. Care of patient to be signed to daytime physician at 0700 0700: Received sign-out from overnight provider, patient with a history of CHF, diabetes, small-bowel obstruction presenting to the emergency department for abdominal pressure vomiting diarrhea, lab work unremarkable thus far, final disposition pending CT scan and re-evaluation. 0924: Patient was re-evaluated, repeat abdominal exam soft nontender non peritoneal nature, patient is stating symptoms have completely resolved after administration of medication here, CT scan results unremarkable lab work unremarkable, he states that he was told that there is a ?stomach bug that has been going around the area and when she is living. Patient nontoxic, will be sent home with antiemetics as well as instructed to follow up with outpatient primary care, strict return precautions given he verbalized understanding of this and agrees to being discharged home with outpatient follow up Discharge Plan Departure Patient Disposition: Home Clinical Impression: Abdominal pain Instructions: DI for Abdominal Pain-Adult Activity Restrictions/Additional Instructions: Please read the discharge instructions sheet carefully and bring all papers to all doctor follow-up visits, as it may contain information that your doctor may want to see. Disease processes change and evolve, if your symptoms worsen or if you develop any new symptoms that are concerning to you please return for evaluation. Your evaluation today does not show any evidence of any life- threatening/serious illnesses requiring admission to the hospital or surgery. Please follow-up with your doctor for re-evaluation in approximately 1 day. Seek immediate medical attention for any worrisome symptoms. *If you do not have a primary care provider please contact the [facility] Resource line at [phone]. They will ask some questions about your medical history and help get you set up with a doctor in the community. Prescriptions: New ondansetron 4 mg tablet,disintegrating 4 mg PO Q8H PRN (Reason: nausea and vomiting) 5 Days Qty: 15 0RF No Action methylphenidate HCl [Concerta] 36 MG tablet extended release 24hr 36 mg PO SEE INSTRUCTIONS Qty: 28 0RF pregabalin [Lyrica] 225 MG capsule 225 mg PO TID Qty: 84 1RF dutasteride [Avodart] 0.5 MG capsule 0.5 mg PO QDAY Qty: 90 1RF ondansetron HCl 4 mg tablet 4 mg PO Q8H PRN (Reason: Nausea) duloxetine 30 mg capsule,delayed release(DR/EC) 30 mg PO DAILY oxycodone 10 mg tablet 10 mg PO 3XD PRN (Reason: Pain (Scale Score 7-10)) miconazole nitrate [Antifungal (miconazole)] 2 % Cream 1 applic TOPICAL DAILY buprenorphine 15 mcg/hour Patch Weekly 15 mcg transdermal WEEKLY prazosin 5 mg Capsule 10 mg PO BEDTIME Patient Comments: Confirmed with patient and his that he only takes 2 x 5mg caps = 10mg at bedtime (not 14mg as previously recorded) furosemide [Lasix] 40 mg tablet 40 mg PO DAILY Qty: 14 0RF Stand Alone Forms: Patient Portal/API/Survey
--- NOTE | 2024-03-25 05:26 | DI.CT.S_ITS ---
PROCEDURE: CT ABDOMEN PELVIS W CON INDICATIONS: CENTRAL ABD PRESSURE, N/V TECHNIQUE: After the administration of intravenous contrast, axial sections acquired from the lung bases to the pubic symphysis. Coronal and sagittal reformats were performed. For radiation dose reduction, the following was used: automated exposure control, adjustment of mA and/or kV according to patient size. COMPARISON: [facility], CT, IVP (ABD & PEL WWO CONTRAST), 08/28/2015, 13:12. FINDINGS: Image quality: Diagnostic. Lower Chest: No significant findings. ABDOMEN: Liver: No solid mass. Steatosis. Gallbladder: No radiopaque gallstones or wall thickening. Biliary ducts: No biliary dilation. Pancreas: No ductal dilation. Spleen: Size is within normal limits. Adrenal Glands: No adrenal nodules. Kidneys and Ureters: No hydronephrosis. No solid mass. Bilateral simple renal cysts. Stomach and Bowel: Normal colonic caliber, without significant wall thickening. Peritoneum: No abnormal intraperitoneal fluid. No free air. Ventral Wall: No significant ventral hernia. Abdominal Nodes: No retroperitoneal or mesenteric adenopathy by size criteria. Vessels: Aorta and inferior vena cava are normal in size. PELVIS: Pelvic Organs: Unremarkable. Bladder: No bladder wall thickening, accounting for underdistention. Pelvic Nodes: No enlarged lymph nodes. Miscellaneous: No inguinal hernias are seen. Bones: No aggressive osseous abnormality. Significant multilevel degenerative change. IMPRESSION: No visualized acute intra-abdominal pelvic process. Hepatic steatosis. Dictated by: Reina Solorio M.D. on 03/25/2024 at 9:01 Approved by: Reina Solorio M.D. on 03/25/2024 at 9:04
[2024-03-25] MEDS: MORPHINE 4 MG/ML INJ IV (05:37)
[2024-03-25] MEDS: ONDANSETRON 4 MG/2 ML INJ IV ×2 (05:37→08:27)
--- NOTE | 2024-03-25 05:38 | EKG_ITS ---
[place] [id number] [place] [id number] Test Date: 2024-03-25 Pat Name: Felix Zarco Department: [facility] Room: Gender: Male Patient Assistant: : 1945 Requested By: Order Number: [id number] Reading MD: Inder Wills Measurements Intervals [place] Rate: 73 P: 25 ND: 236 QRS: 30 QRSD: 88 T: 47 QT: 388 QTc: 427 Interpretive Statements Sinus rhythm with 1st degree AV block Electronically Signed On 03-30-2024 23:41:39 PST by Inder Wills
[2024-03-25 05:50] LABS: Add Manual Diff / Slide Review NO; Basophils Absolute Auto 100 /uL (0-100); Basophils Percent Auto 0.9 % (0-2); Eosinophils Absolute Auto 100 /uL (0-450); Eosinophils Percent Auto 1.9 % (2-4); Hemoglobin 14.9 g/dL (13.5-17.5); Lymphocytes Absolute Auto 1000 /uL (1100-4500); Lymphocytes Percent Auto 15.1 % (25-40); Mean Corpuscular HGB Conc 32.5 % (30-36); Mean Corpuscular Hemoglobin 28.7 PG (26-34); Mean Corpuscular Volume 88.4 fL (80-100); Monocytes Absolute Auto 300 /uL (0-900); Monocytes Percent Auto 5.4 % (3-14); Neutrophils Absolute Auto 5000 /uL (1500-7000); Neutrophils Percent Auto 76.7 % (50-75); Platelet Count 187 X10^3/uL (150-400); Red Cell Distribution Width 15.9 % (11.6-14.8); White Blood Cell Count 6.5 X10^3/uL (4.5-11.0)
[2024-03-25] MEDS: diphenhydrAMINE 50 MG/ML VIAL 25 MG IV (05:51)
[2024-03-25 06:03] LABS: INR 1.1 (0.9-1.3)
[2024-03-25 06:32] LABS: Creatine Kinase 118 U/L (55-170)
[2024-03-25 06:34] LABS: Alanine Aminotransferase 31 IU/L (<50); Albumin 4.2 g/dL (3.5-5.0); Albumin Globulin Ratio 1.2 (1.0-2.8); Alkaline Phosphatase 215 U/L (38-126); Aspartate Aminotransferase 76 IU/L (17-59); BUN Creatinine Ratio 18.9 (6-22); Bilirubin Total 0.8 mg/dL (0.2-1.3); Blood Urea Nitrogen 17 mg/dL (9-20); Calcium 9.7 mg/dL (8.4-10.2); Carbon Dioxide 30 mmol/L (22-32); Chloride 98 mmol/L (98-107); Estimated Glomerular Filt Rate > 60 mL/min (>60); Globulin 3.5 g/dL (1.7-4.1); Glucose 189 mg/dL (80-110); HEMOLYSIS 24 (0-50); Lactate (Lactic Acid) 1.5 mmol/L (0.7-2.1); Lipase 133 U/L (23-300); Magnesium 1.9 mg/dL (1.6-2.3); Potassium 4.6 mmol/L (3.4-5.1); Sodium 134 mmol/L (137-145); Total Protein 7.7 g/dL (6.3-8.2)
[2024-03-25 06:46] LABS: Troponin I < 0.012 ng/mL (0.01-0.034)
[2024-03-25 06:48] LABS: Appearance Urine UA CLEAR; Bilirubin Urine UA NEGATIVE (NEGATIVE); Color Urine UA YELLOW; Glucose Urine UA NEGATIVE (Negative); Ketones Urine UA 1+ (NEGATIVE); Leukocyte Esterase Urine UA NEGATIVE (NEGATIVE); Nitrite Urine UA NEGATIVE (Negative); Occult Blood Urine UA NEGATIVE (Negative); Protein Urine UA NEGATIVE (Negative); Specific Gravity Urine UA 1.015 (1.000-1.035); Urobilinogen Urine UA 0.2 E.U./dL (0.2)
[2024-03-25 06:50] LABS: Procalcitonin 0.066 ng/mL (<0.5)
[2024-03-25 06:56] LABS: Urine Volume 10mL (spun)
[2024-03-25 06:57] LABS: Bacteria Urine None Seen; Culture Indicated Urine Cult Not Indicated; RBC Urine None Seen (0-5/HPF); Squamous Epithelial Cell Urine None Seen (0-5/HPF); WBC Urine None Seen (0-5/HPF)
== END 2024-03-25 09:55 | disposition home or self-care (01) ==
PROVIDERS: Emergency Medicine; Emergency Provider Student in an Organized Health Care Education/Training Program
DX: R10.84 Generalized abdominal pain (principal); R11.2 Nausea with vomiting, unspecified; E11.9 Type 2 diabetes mellitus without complications; I50.9 Heart failure, unspecified; I11.0 Hypertensive heart disease with heart failure; F11.20 Opioid dependence, uncomplicated; Z87.891 Personal history of nicotine dependence
CPT/HCPCS: 74177; 80053; 81001; 82550; 83605; 83690; 83735; 84145; 84484; 85025; 85610; 93005; 96374; 96375; 96376; 99283; 99284; J1200; J2270; J2405; Q9967

== ENCOUNTER 2024-04-21 13:49 | Inpatient (IN) | payer MEDICARE, OTHER, SELFPAY ==
[2024-02-06 14:53] VITALS: BMI 54.5
[2024-04-21] VITALS (23 sets, daily range): BP systolic 138–183; BP diastolic 64–84; PULSE 56–84; RESP 10–44; TEMP 35.8–36.8; O2SAT 75–99; BMI 54.8; BMI 54.3
--- NOTE | 2024-04-21 14:17 | DI.RAD.S_ITS ---
PROCEDURE: XR CHEST 1V INDICATIONS: Shortness of breath TECHNIQUE: One view of the chest was acquired. COMPARISON: [facility], CR, XR CHEST 1V, 02/06/2024, 9:33. [facility], CR, XR CHEST 1V, 12/29/2023, 17:04. FINDINGS AND IMPRESSION: Right perihilar consolidation and effusion, also involving the right lower lung. Background interstitial prominence. This could represent infection. Consider surveillance imaging to assess for underlying mass. Low lung volumes. Cardiomegaly. Degenerative osseous changes. Dictated by: Eliud Giraldo M.D. on 04/21/2024 at 15:07 Approved by: Eliud Giraldo M.D. on 04/21/2024 at 15:08
--- NOTE | 2024-04-21 14:17 | EKG_ITS ---
[place] [id number] [place] [id number] Test Date: 2024-04-21 Pat Name: Felix Zarco Department: 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
[2024-04-21 14:29] LABS: Add Manual Diff / Slide Review NO; Basophils Absolute Auto 0 /uL (0-100); Basophils Percent Auto 0.6 % (0-2); Eosinophils Absolute Auto 500 /uL (0-450); Hematocrit 39.5 % (41-53); Hemoglobin 12.6 g/dL (13.5-17.5); Lymphocytes Absolute Auto 1000 /uL (1100-4500); Lymphocytes Percent Auto 12.4 % (25-40); Mean Corpuscular HGB Conc 31.9 % (30-36); Mean Corpuscular Hemoglobin 28.6 PG (26-34); Mean Corpuscular Volume 89.6 fL (80-100); Monocytes Absolute Auto 500 /uL (0-900); Monocytes Percent Auto 6.8 % (3-14); Neutrophils Absolute Auto 5700 /uL (1500-7000); Neutrophils Percent Auto 73.2 % (50-75); Platelet Count 217 X10^3/uL (150-400); Red Blood Cell Count 4.41 X10^6/uL (4.5-5.9); Red Cell Distribution Width 16.1 % (11.6-14.8); White Blood Cell Count 7.8 X10^3/uL (4.5-11.0)
[2024-04-21 14:33] LABS: Prothrombin Time 11.8 SECONDS (9.4-12.5)
[2024-04-21 14:38] LABS: Alanine Aminotransferase 23 IU/L (<50); Albumin Globulin Ratio 1.2 (1.0-2.8); Alkaline Phosphatase 190 U/L (38-126); Aspartate Aminotransferase 63 IU/L (17-59); BUN Creatinine Ratio 17.7 (6-22); Bilirubin Total 0.8 mg/dL (0.2-1.3); Blood Urea Nitrogen 29 mg/dL (9-20); Calcium 9.2 mg/dL (8.4-10.2); Carbon Dioxide 38 mmol/L (22-32); Chloride 96 mmol/L (98-107); Estimated Glomerular Filt Rate 43 mL/min (>60); Globulin 3.4 g/dL (1.7-4.1); Glucose 80 mg/dL (80-110); HEMOLYSIS < 15 (0-50); Lactate (Lactic Acid) 1.1 mmol/L (0.7-2.1); Sodium 141 mmol/L (137-145); Total Protein 7.4 g/dL (6.3-8.2)
--- NOTE | 2024-04-21 14:45 | ED.SOB ---
HPI - SOB/Dyspnea General Chief Complaint: Shortness of Breath/Dyspnea Stated Complaint: low back pain, sob Time Seen by Provider: 04/21/24 14:32 Source: patient and EMS Mode of arrival: EMS Limitations: no limitations History of Present Illness HPI Narrative: Patient brought in by EMS from home for weight gain/15 lb as well as shortness of breath as well as low back pain. Onset about 1 week. Denies any chest pain. Patient does have history of diastolic congestive heart failure. Patient admitted here middle of January of last year. Echocardiogram 60 -65% ejection fraction. Patient was discharged home on Lasix 40 mg daily. However he states in the past few weeks Bumex was added. Patient has low back pain. Has history of low back pain and and surgery. No known injury or fall. Patient does not use oxygen at home. 75% room air here. Improved with nasal cannula. Patient is on 4 L nasal cannula. Speaking full sentences comfortably. Respiratory therapist at bedside. No wheezing or rhonchi. No history of COPD. There is diminished bibasilar lung sounds. Related Data Home Medications Medication Instructions Recorded Confirmed duloxetine 30 mg capsule,delayed 30 mg PO DAILY 02/06/24 04/21/24 release miconazole nitrate 2 % topical 1 applic topical DAILY 02/06/24 04/21/24 cream (Antifungal (miconazole)) ondansetron HCl 4 mg tablet 4 mg PO Q8H PRN Nausea 02/06/24 04/21/24 oxycodone 10 mg tablet 10 mg PO 3XD PRN Pain (Scale Score 02/06/24 04/21/24 7-10) prazosin 5 mg capsule 10 mg PO BEDTIME 02/07/24 04/21/24 bumetanide 1 mg tablet 1 mg PO DIRECTED 04/21/24 04/21/24 metformin 500 mg tablet,extended 500 mg PO BID 04/21/24 04/21/24 release 24 hr ropinirole 5 mg tablet 5 mg PO BID 04/22/24 04/22/24 Previous Rx's Medication Instructions Recorded pregabalin 225 mg capsule (Lyrica) 225 mg PO TID #84 caps 04/17/16 Allergies Allergy/AdvReac Type Severity Reaction Status Date / Time clavulanic acid Allergy Intermediate DIARRHEA Verified 03/25/24 06:19 [CLAVULANIC ACID] hydrocodone [HYDROCODONE] Allergy Intermediate HALLUCINATI Verified 03/25/24 06:19 ONS hydromorphone [HYDROMORPHONE] Allergy Intermediate HALLUCINATI Verified 03/25/24 06:19 ONS phenazopyridine AdvReac Mild nausea Verified 03/25/24 06:19 [From PYRIDIUM] Review of Systems Review of Systems Narrative: GENERAL: Negative chills, fatigue, malaise, fever, sweats. HEENT: Negative sinus pain, ear pain, sore throat RESPIRATORY: Positive dyspnea, cough CARDIOVASCULAR: Negative chest pain, palpitations GASTROINTESTINAL: Negative nausea, vomiting, abdominal pain : Negative dysuria, frequency, hematuria MUSCULOSKELETAL: Negative muscle or bony pain SKIN: Negative rash, skin lesions NEUROLOGIC: Negative weakness, numbness ROS Unobtainable: All systems reviewed & are unremarkable except as noted in HPI and below Patient History Medical History Perianal abscess Diaphragm paralysis Hypertension BPH (benign prostatic hyperplasia) Opiate dependence Chronic pain Fibromyalgia TALITA (acute kidney injury) Generalized edema (04/27/15) Surgical History History of lumbar laminectomy History of thoracic surgery Family History Grandfather Hypertension Stroke Social History household members: spouse Smoking Status: Never smoker alcohol intake: current Smoking Status: Former smoker alcohol intake frequency: holidays/special occasions only Exam Narrative Exam Narrative: GENERAL: in no distress, not toxic not dyspneic HEAD: Normocephalic. EYES: Pupils equal round ENT: Mucous membranes moist. NECK: Trachea midline. CARDIOVASCULAR: Regular rate and rhythm RESPIRATORY: Diminished bilateral basilar lung sounds. Patient is speaking full sentences. Bilateral rales. GASTROINTESTINAL: Abdomen soft, non-tender EXTREMITIES: No gross deformities. Bilateral anterior symmetric erythema. No crepitus no pain out of portion exam. 3+ pitting edema of the ankles. Calf nontender otherwise. BACK: No flank tenderness. No midline tenderness or step-off the cervical thoracic or lumbar spine. Patient able to roll himself left and right in order to to examination of the back and buttocks. NEURO: AOx4. Clear speech SKIN: Warm and dry PSYCH: Not anxious, is cooperative Initial Vital Signs Initial Vital Signs: Vital Signs Temperature 98.3 F 04/21/24 13:50 Pulse Rate 77 04/21/24 13:50 Respiratory Rate 22 04/21/24 13:50 Blood Pressure 173/83 H 04/21/24 13:50 Pulse Oximetry 75 L 04/21/24 13:50 Oxygen Delivery Method Room Air 04/21/24 13:50 Course Orders Ordered: Acetaminophen (Acetaminophen 325 Mg Tablet) 650 mg PO Q6H PRN PRN Reason: Fever/Mild Pain (1-3) Duloxetine HCl (Duloxetine 30 Mg Capsule) 30 mg PO DAILY [facility] Enoxaparin Sodium (Enoxaparin 40 Mg/0.4 Ml Syringe) 40 mg SUBCUT DAILY [facility] Furosemide (Furosemide 40 Mg/4 Ml Vial) 40 mg IV 0800,1700 [facility] Ceftriaxone Sodium 1,000 mg/ (Sodium Chloride) 100 mls @ 200 mls/hr IV Q24H [facility] Last Infusion: 04/21/24 21:35 Dose: Infused Documented By: Admin: 04/21/24 21:01 Dose: 200 mls/hr Documented By: CT Dextrose (D10w) 100 mls @ 999 mls/hr IV PRN PRN PRN Reason: Hypoglycemia Insulin Human Lispro (Insulin Lispro 100 Unit/Ml 3ml Vial) 0 unit SUBCUT ACHS [facility]; Protocol Last Admin: 04/21/24 21:45 Dose: Not Given Documented By: CT Naloxone HCl (Naloxone 0.4 Mg/Ml Vial) 0.2 mg IV Q2MIN PRN PRN Reason: Opiate Reversal Methylphenidate Hcl [Concerta] 36 Mg Tab Er 24h 36 mg PO DAILY [facility] Dutasteride [Avodart (] 0.5 Mg Cap) 0.5 mg PO DAILY [facility] Ondansetron HCl (Ondansetron 4 Mg/2 Ml Inj) 4 mg IV Q8HR PRN PRN Reason: Nausea And Vomiting Oxycodone HCl (Oxycodone Ir 10 Mg Tablet) 10 mg PO Q4HR PRN PRN Reason: Pain, Severe (7-10) Last Admin: 04/22/24 05:28 Dose: 10 mg Documented By: FM Oxycodone HCl (Oxycodone Ir 5 Mg Tablet) 5 mg PO Q4HR PRN PRN Reason: Pain, Moderate (4-6) Prazosin HCl (Prazosin Hcl 5 Mg Capsule) 10 mg PO BEDTIME [facility] Pregabalin (Pregabalin 75 Mg Capsule) 225 mg PO TID [facility] Last Admin: 04/21/24 21:45 Dose: 225 mg Documented By: CT Ropinirole HCl (Ropinirole 1 Mg Tablet) 5 mg PO BID [facility] Last Admin: 04/22/24 00:35 Dose: 5 mg Documented By: CT Discontinued Medications Furosemide (Furosemide 40 Mg/4 Ml Vial) 40 mg IV NOW ONE Stop: 04/21/24 16:53 Last Admin: 04/21/24 17:10 Dose: 40 mg Documented By: CIELO Oxycodone HCl (Oxycodone Ir 5 Mg Tablet) 10 mg PO NOW ONE Stop: 04/21/24 16:51 Last Admin: 04/21/24 17:10 Dose: 10 mg Documented By: CIELO Oxycodone HCl (Oxycodone Ir 10 Mg Tablet) 10 mg PO TID PRN PRN Reason: Pain, Severe (7-10) Pregabalin (Pregabalin 75 Mg Capsule) 225 mg PO NOW ONE Stop: 04/21/24 16:53 Last Admin: 04/21/24 17:10 Dose: 225 mg Documented By: CIELO Vital Signs Vital signs: Vital Signs - 8 hr 04/21/24 13:50 04/21/24 14:14 04/21/24 14:30 Temperature 98.3 F Pulse Rate 77 74 Respiratory Rate 22 22 Blood Pressure 173/83 H 144/69 H Pulse Oximetry 75 L 98 Oxygen Delivery Method Room Air 04/21/24 14:30 04/21/24 15:00 04/21/24 15:00 Temperature Pulse Rate 73 79 Respiratory Rate 18 Blood Pressure 169/77 H Pulse Oximetry 99 98 Oxygen Delivery Method MDM - SOB/Dyspnea Lab Data 04/22/24 04:00 04/22/24 04:00 Labs: Lab Results 04/21/24 04/21/24 Range/Units 14:10 15:23 WBC 7.8 (4.5-11.0) X10^3/uL RBC 4.41 L (4.5-5.9) X10^6/uL Hgb 12.6 L (13.5-17.5) g/dL Hct 39.5 L (41-53) % MCV 89.6 (80-100) fL MCH 28.6 (26-34) PG MCHC 31.9 (30-36) % RDW 16.1 H (11.6-14.8) % Plt Count 217 (150-400) X10^3/uL Neut % (Auto) 73.2 (50-75) % Lymph % (Auto) 12.4 L (25-40) % [place] % (Auto) 6.8 (3-14) % Eos % (Auto) 7.0 H (2-4) % Baso % (Auto) 0.6 (0-2) % Neut # (Auto) 5700 (1899-1555) /uL Lymph # (Auto) 1000 L (0688-1880) /uL [place] # (Auto) 500 (0-900) /uL Eos # (Auto) 500 H (0-450) /uL Baso # (Auto) 0 (0-100) /uL PT 11.8 (9.4-12.5) SECONDS INR 1.0 (0.9-1.3) Sodium 141 (137-145) mmol/L Potassium 5.0 (3.4-5.1) mmol/L Chloride 96 L (98-107) mmol/L Carbon Dioxide 38 H (22-32) mmol/L BUN 29 H (9-20) mg/dL Creatinine 1.64 H (0.66-1.25) mg/dL Estimated GFR 43 L (>60) mL/min BUN/Creatinine Ratio 17.7 (6-22) Glucose 80 (80-110) mg/dL Lactate 1.1 (0.7-2.1) mmol/L Calcium 9.2 (8.4-10.2) mg/dL Total Bilirubin 0.8 (0.2-1.3) mg/dL AST 63 H (17-59) IU/L ALT 23 (<50) IU/L Alkaline Phosphatase 190 H (38-126) U/L Troponin I < 0.012 (0.01-0.034) ng/mL NT-Pro-B Natriuret Pep 1530 H (<450) pg/mL Total Protein 7.4 (6.3-8.2) g/dL Albumin 4.0 (3.5-5.0) g/dL Globulin 3.4 (1.7-4.1) g/dL Albumin/Globulin Ratio 1.2 (1.0-2.8) Urine Color Yellow Urine Appearance Clear Urine pH 6.5 (4.5-8.0) Ur Specific [place] 1.010 (1.000-1.035) Urine Protein Negative (Negative) Urine Glucose (UA) Negative (Negative) g/dL Urine Ketones Negative (NEGATIVE) Urine Occult Blood Negative (Negative) Urine Nitrate Negative (Negative) Urine Bilirubin Negative (NEGATIVE) Urine Urobilinogen 0.2 (0.2) E.U./dL Ur Leukocyte Esterase Negative (NEGATIVE) Urine RBC None seen (0-5/HPF) Urine WBC None seen (0-5/HPF) Ur Squamous Epith Cells 0-1 /hpf (0-5/HPF) Urine Bacteria Occasional (0-1) (None) Ur Culture Indicated? Cult not indicated Vol Urine Centrifuged 10ml (spun) Chlamy pneumoniae PCR Not detected (Not Detect) Adenovirus (PCR) Not detected (Not Detect) B. pertussis DNA (PCR) Not detected (Not Detect) B.parapertussis DNA PCR Not detected (Not Detecte) Coronavirus OC43 (PCR) Not detected (Not Detect) Coronavirus HKU1 (PCR) Not detected (Not Detect) Coronavirus 229E (PCR) Not detected (Not Detect) SARS-CoV-2 (PCR) Not detected (Not Detecte) Coronavirus NL63 (PCR) Not detected (Not Detect) Human Metapneumovir PCR Not detected (Not Detect) Influenza Type A (PCR) Not detected (Not Detect) Influenza Type B (PCR) Not detected (Not Detect) M. pneumoniae (PCR) Not detected (Not Detect) Parainfluenza 1 (PCR) Not detected (Not Detect) Parainfluenza 2 (PCR) Not detected (Not Detect) Parainfluenza 3 (PCR) Not detected (Not Detect) Parainfluenza 4 (PCR) Not detected (Not Detect) RSV (PCR) Not detected (Not Detect) Entero/Rhino (PCR) Not detected (Not Detect) Imaging Data Chest x-ray: Radiologist's Impression: [address] [address] XRay Report Signed Patient: Felix Zarco MR#: [id number] : 1945 Acct:[id number] Age/Sex: 78 / M Date of Service: 04/21/24 Loc: ED Accession Number: [id number] Procedure: XR chest 1V Ordering Provider: Karel Cheng MD PROCEDURE: XR CHEST 1V INDICATIONS: Shortness of breath TECHNIQUE: One view of the chest was acquired. COMPARISON: [facility], CR, XR CHEST 1V, 02/06/2024, 9:33. [facility], CR, XR CHEST 1V, 12/29/2023, 17:04. FINDINGS AND IMPRESSION: Right perihilar consolidation and effusion, also involving the right lower lung. Background interstitial prominence. This could represent infection. Consider surveillance imaging to assess for underlying mass. Low lung volumes. Cardiomegaly. Degenerative osseous changes. Dictated by: Eliud Giraldo M.D. on 04/21/2024 at 15:07 Approved by: Eliud Giraldo M.D. on 04/21/2024 at 15:08 [facility] Narrative Medical decision making narrative: Patient brought in by EMS from home for weight gain/15 lb as well as shortness of breath as well as low back pain. Onset about 1 week. Denies any chest pain. Patient does have history of diastolic congestive heart failure. Patient admitted here middle of January of last year. Echocardiogram 60 -65% ejection fraction. Patient was discharged home on Lasix 40 mg daily. However he states in the past few weeks Bumex was added. Patient has low back pain. Has history of low back pain and and surgery. No known injury or fall. Patient does not use oxygen at home. 75% room air here. Improved with nasal cannula. Patient is on 4 L nasal cannula. Speaking full sentences comfortably. Respiratory therapist at bedside. No wheezing or rhonchi. No history of COPD. There is diminished bibasilar lung sounds. After history and exam, CBC CMP BNP troponin respiratory panel EKG chest x-ray Martinez catheter, patient complains right greater than left lower back pain, however left back pain radiates down his left groin area. [facility] Medical records reviewed: Admission/discharge summary January 2024 from this hospital Differential considered: Includes but not limited to CHF pneumonia acute on chronic back pain, sciatica radiculopathy Lab Test results independently reviewed as above. Pertinent findings: WBC 7.8 hemoglobin 12.6 sodium 141 potassium 5.0 BUN 29 creatinine 1.64 GFR 43 troponin less than 0.012 BNP 1530 Independently reviewed EKG sinus rhythm rate [address] elevation or depression Imaging studies independently reviewed: Chest x-ray right pleural effusion, cardiomegaly Consultations: Spoke with Dr. Wills, will evaluate patient for admission. Treatments: Lasix Re-evaluations: Updated patient results. He does agree understand need for admission for diuresis for CHF Discussion: Appropriate for admission. Patient will require diuresis. Patient already on Bumex at home. Diagnosis: CHF exacerbation Discharge Plan Departure Patient Disposition: Admitted as Observation Clinical Impression: Acute exacerbation of CHF (congestive heart failure) Qualifiers: Heart failure type: diastolic Qualified Code(s): I50.33 - Acute on chronic diastolic (congestive) heart failure Admit Date/Time: 04/21/24 17:07 Admit Provider: Inder Wills
[2024-04-21 14:49] LABS: NT-proBNP (BNP-Adult 18+) 1530 pg/mL (<450); Troponin I < 0.012 ng/mL (0.01-0.034)
[2024-04-21 15:35] LABS: Adenovirus Not Detected (Not Detect); B. parapertussis Not Detected (Not Detecte); Bordetella pertussis Not Detected (Not Detect); Chlamydophila pneumoniae Not Detected (Not Detect); Coronavirus 229E Not Detected (Not Detect); Coronavirus HKU1 Not Detected (Not Detect); Coronavirus NL 63 Not Detected (Not Detect); Coronavirus OC43 Not Detected (Not Detect); Human Metapneumovirus Not Detected (Not Detect); Human Rhinovirus/Enterovirus Not Detected (Not Detect); Influenza A Not Detected (Not Detect); Influenza B Not Detected (Not Detect); Mycoplasma pneumoniae Not Detected (Not Detect); Parainfluenza Virus 1 Not Detected (Not Detect); Parainfluenza Virus 2 Not Detected (Not Detect); Parainfluenza Virus 3 Not Detected (Not Detect); Parainfluenza Virus 4 Not Detected (Not Detect); Respiratory Syncytial Virus Not Detected (Not Detect); SARS- CoV-2 Not Detected (Not Detecte)
[2024-04-21 15:46] LABS: Appearance Urine UA CLEAR; Bilirubin Urine UA NEGATIVE (NEGATIVE); Color Urine UA YELLOW; Glucose Urine UA NEGATIVE (Negative); Ketones Urine UA NEGATIVE (NEGATIVE); Leukocyte Esterase Urine UA NEGATIVE (NEGATIVE); Nitrite Urine UA NEGATIVE (Negative); Occult Blood Urine UA NEGATIVE (Negative); Protein Urine UA NEGATIVE (Negative); Urobilinogen Urine UA 0.2 E.U./dL (0.2); pH Urine UA 6.5 (4.5-8.0)
[2024-04-21 15:55] LABS: Urine Volume 10mL (spun)
[2024-04-21 15:56] LABS: Bacteria Urine Occasional (0-1); Culture Indicated Urine Cult Not Indicated; RBC Urine None Seen (0-5/HPF); Squamous Epithelial Cell Urine 0-1 /HPF (0-5/HPF); WBC Urine None Seen (0-5/HPF)
[2024-04-21] MEDS: FUROSEMIDE 40 MG/4 ML VIAL IV (17:10)
[2024-04-21] MEDS: OXYCODONE IR 5 MG TABLET 10 MG PO (17:10)
[2024-04-21] MEDS: PREGABALIN 75 MG CAPSULE 225 MG PO ×2 (17:10→21:45)
--- NOTE | 2024-04-21 17:46 | P.HP_ITS ---
History of Present Illness History of Present Illness Date Patient Seen: 04/21/24 Time Patient Seen: 17:48 Chief complaint: low back pain, sob Narrative: Is a 78-year-old male with a past medical history of hypertension, chronic pain and fibromyalgia, BPH and diagnosis of diastolic heart failure on admission here in January 2024 who presents with worsening lower extremity edema, mild shortness of breath, and 15 lbs of weight gain over the past couple of days. Patient states that he had tried Bumex with his primary care doctor but this was of no relief. He was hypoxic upon arrival into the mid 70s, improved on 4 L of oxygen in the emergency room. ProBNP was elevated at 1530, initial troponin was negative. EKG showed normal sinus rhythm with a first-degree block, with no evidence of acute ischemia. Respiratory panel was performed and was negative. Urinalysis was unremarkable. Creatinine was a bit up at 1.64 consistent with his prior admission for heart failure. He was admitted to the medicine service for further management of presumed diastolic heart failure exacerbation. [facility] Medical History Perianal abscess Diaphragm paralysis Hypertension BPH (benign prostatic hyperplasia) Opiate dependence Chronic pain Fibromyalgia TALITA (acute kidney injury) Generalized edema (04/27/15) Surgical History History of lumbar laminectomy History of thoracic surgery Family History Grandfather Hypertension Stroke Social History household members: spouse Smoking Status: Former smoker alcohol intake: current Meds Home Medications and Allergies Home Medications Medication Instructions Recorded Confirmed Type methylphenidate HCl 36 mg 36 mg PO SEE INSTRUCTIONS #28 tabs 04/17/16 04/21/24 Rx tablet,extended release 24 hr (Concerta) pregabalin 225 mg capsule (Lyrica) 225 mg PO TID #84 caps 04/17/16 04/21/24 Rx dutasteride 0.5 mg capsule 0.5 mg PO QDAY #90 caps 05/09/16 04/21/24 Rx (Avodart) duloxetine 30 mg capsule,delayed 30 mg PO DAILY 02/06/24 04/21/24 History release miconazole nitrate 2 % topical 1 applic topical DAILY 02/06/24 04/21/24 History cream (Antifungal (miconazole)) ondansetron HCl 4 mg tablet 4 mg PO Q8H PRN Nausea 02/06/24 04/21/24 History oxycodone 10 mg tablet 10 mg PO 3XD PRN Pain (Scale Score 02/06/24 04/21/24 History 7-10) prazosin 5 mg capsule 10 mg PO BEDTIME 02/07/24 04/21/24 History bumetanide 1 mg tablet 1 mg PO DIRECTED 04/21/24 04/21/24 History furosemide 40 mg tablet (Lasix) 40 mg PO BID 04/21/24 04/21/24 History metformin 500 mg tablet,extended 500 mg PO BID 04/21/24 04/21/24 History release 24 hr Allergies Allergy/AdvReac Type Severity Reaction Status Date / Time clavulanic acid Allergy Intermediate DIARRHEA Verified 03/25/24 06:19 [CLAVULANIC ACID] hydrocodone [HYDROCODONE] Allergy Intermediate HALLUCINATI Verified 03/25/24 06:19 ONS hydromorphone [HYDROMORPHONE] Allergy Intermediate HALLUCINATI Verified 03/25/24 06:19 ONS phenazopyridine AdvReac Mild nausea Verified 03/25/24 06:19 [From PYRIDIUM] Review of Systems Review of Systems Narrative: All other systems reviewed with the patient and are negative unless otherwise stated. Exam Vital Signs (past 8 hours): - 04/21/24 13:50 04/21/24 14:14 04/21/24 14:30 Temperature 98.3 F Pulse Rate 77 74 Respiratory Rate 22 22 Blood Pressure 173/83 H 144/69 H Pulse Oximetry 75 L 98 Oxygen Delivery Method Room Air Oxygen Flow Rate 04/21/24 14:30 04/21/24 15:00 04/21/24 15:00 Temperature Pulse Rate 73 79 Respiratory Rate 18 Blood Pressure 169/77 H Pulse Oximetry 99 98 Oxygen Delivery Method Oxygen Flow Rate 04/21/24 15:30 04/21/24 15:31 04/21/24 15:31 Temperature Pulse Rate 83 81 Respiratory Rate 21 15 Blood Pressure 163/69 H Pulse Oximetry 95 96 Oxygen Delivery Method Nasal Cannula Oxygen Flow Rate 3 04/21/24 16:00 04/21/24 16:00 04/21/24 16:30 Temperature Pulse Rate 84 82 Respiratory Rate 21 20 Blood Pressure 183/84 H Pulse Oximetry 95 94 Oxygen Delivery Method Nasal Cannula Oxygen Flow Rate 3 04/21/24 16:31 04/21/24 16:31 04/21/24 17:00 Temperature Pulse Rate 80 83 Respiratory Rate 19 28 H Blood Pressure 147/64 H Pulse Oximetry 97 95 Oxygen Delivery Method Oxygen Flow Rate 04/21/24 17:00 Temperature Pulse Rate Respiratory Rate Blood Pressure 149/74 H Pulse Oximetry Oxygen Delivery Method Oxygen Flow Rate Oxygen Delivery Method Nasal Cannula Oxygen Flow Rate 3 Narrative Exam Narrative: General:? Patient is well developed and well nourished, in no distress at this time, slightly lethargic nodding off frequently HEENT:? Normocephalic, atraumatic, extraocular muscles intact, oral pharynx is clear and mucous membranes are moist. Neck: supple and symmetric, trachea is midline, no cervical adenopathy. Negative for JVD Chest:? Normal AP diameter and contour without kyphoscoliosis, no tachypnea, equal chest rise bilaterally. Lungs:?Bibasilar rales, no wheezing. Diminished sounds at the bases b/l Cardio:?RRR no m/r/g. Abdomen: S NT ND. pannus with mild edema as well, some skin excoriations on his abdomen as well Musculoskeletal:? Muscle strength and tone are equal within normal limits, no deformity. Extremities: 2+ peripheral LE edema, bilateral venous stasis changes with L leg dressed, RLE with mild circumferential calf erythema and tenderness, mildly warm compared to L. Neuro:? Alert and orientated x3,? sensation to touch intact in all extremities, no gross deficits noted of cranial nerves. Psych:? Patient has a well-kept appearance, appropriate affect, mental status attitude thought context and judgment are appropriate for age. Objective ECG Impression: Normal sinus rhythm with first-degree AV block, no evidence of acute ischemia. Imaging Chest x-ray: Radiologist's impression: Right perihilar consolidation and effusion, also involving the right lower lung. Background interstitial prominence. This could represent infection. Consider surveillance imaging to assess for underlying mass. Low lung volumes. Cardiomegaly. Degenerative osseous changes. Labs 04/21/24 14:10 04/21/24 14:10 Labs: Laboratory Results - last 24 hr 04/21/24 04/21/24 14:10 15:23 WBC 7.8 RBC 4.41 L Hgb 12.6 L Hct 39.5 L MCV 89.6 MCH 28.6 MCHC 31.9 RDW 16.1 H Plt Count 217 Neut % (Auto) 73.2 Lymph % (Auto) 12.4 L [place] % (Auto) 6.8 Eos % (Auto) 7.0 H Baso % (Auto) 0.6 Neut # (Auto) 5700 Lymph # (Auto) 1000 L [place] # (Auto) 500 Eos # (Auto) 500 H Baso # (Auto) 0 PT 11.8 INR 1.0 Sodium 141 Potassium 5.0 Chloride 96 L Carbon Dioxide 38 H BUN 29 H Creatinine 1.64 H Estimated GFR 43 L BUN/Creatinine Ratio 17.7 Glucose 80 Lactate 1.1 Calcium 9.2 Total Bilirubin 0.8 AST 63 H ALT 23 Alkaline Phosphatase 190 H Troponin I < 0.012 NT-Pro-B Natriuret Pep 1530 H Total Protein 7.4 Albumin 4.0 Globulin 3.4 Albumin/Globulin Ratio 1.2 Urine Color Yellow Urine Appearance Clear Urine pH 6.5 Ur Specific [place] 1.010 Urine Protein Negative Urine Glucose (UA) Negative Urine Ketones Negative Urine Occult Blood Negative Urine Nitrate Negative Urine Bilirubin Negative Urine Urobilinogen 0.2 Ur Leukocyte Esterase Negative Urine RBC None seen Urine WBC None seen Ur Squamous Epith Cells 0-1 /hpf Urine Bacteria Occasional (0-1) Ur Culture Indicated? Cult not indicated Vol Urine Centrifuged 10ml (spun) Chlamy pneumoniae PCR Not detected Adenovirus (PCR) Not detected B. pertussis DNA (PCR) Not detected B.parapertussis DNA PCR Not detected Coronavirus OC43 (PCR) Not detected Coronavirus HKU1 (PCR) Not detected Coronavirus 229E (PCR) Not detected SARS-CoV-2 (PCR) Not detected Coronavirus NL63 (PCR) Not detected Human Metapneumovir PCR Not detected Influenza Type A (PCR) Not detected Influenza Type B (PCR) Not detected M. pneumoniae (PCR) Not detected Parainfluenza 1 (PCR) Not detected Parainfluenza 2 (PCR) Not detected Parainfluenza 3 (PCR) Not detected Parainfluenza 4 (PCR) Not detected RSV (PCR) Not detected Entero/Rhino (PCR) Not detected Assessment & Plan Assessment & Plan narrative: This is a 78-year-old male with history of hypertension, fibromyalgia and BPH who presents with anasarca suggestive of congestive heart failure. Acute on chronic diastolic heart failure with acute respiratory failure with hypoxia -TTE last admission unremarkable with normal EF and diastolic function, no valvular pathologies. -became hypotensive on TID lasix will continue with BID lasix this admission. Last dose 1600 will do next dosing tomorrow AM -monitor electrolytes, K 5.0 on admit -strict intake and output, shirley placed reasoning noted below -ordered limited TTE to reassess for any change in systolic function. -will check VBG to see if any hypercapnea, slight lethargy reported. RLE cellulitis with possible sepsis - continue ceftriaxone 1g q24 hours, starting now - check blood cultures - SOFA score technically 2 with TALITA and hypoxia, though suspect this is more related to volume overload. TALITA/CKD -unclear Creatinine baseline but last admission as low as 0.9 -Creatinine 1.64, likely due to volume overload -continue to monitor with diuresis HTN -Losartan, and diuresis as noted above -will hold prazosin with prior admission hypotension BPH -Dutasteride to continue, hold prazosin as noted abov Fibromyalgia -Continue home Pregabalin and Duloxetine -Continue Oxycodone 10 mg TID. -continue buprenorphine patch weekly. -Followed at [facility] Depression/PTSD -Paroxetine, Duloxetine and Prazosin -significant nightmares suppressed on high-dose prazosin. RLS -Ropinorole Elevated LFT -Likely due to hepatic congestion -Follow with daily CMP DM2 - DM diet ordered, along with sliding scale. Hold home metformin. - A1c lipid panel ordered tomorrow AM. Shirley catheter was placed in the ER for extensive edema and skin breakdown / excoriations in the area in the setting of needing accurate intake and output information. Code: Full His is his back up decision maker. Lovenox for DVT prevention Dispo: Inpatient, possible discharge home in 2-3 days. May need PT/OT depending on progress Time-Based Coding :: [TOTAL MINUTES] spent with patient and on the chart (including review of chart, obtaining history, exam, reviewing outside data, placing orders, documenting exam and treatment plan, and counseling patient) on [DATE].
[2024-04-21 17:50] LABS: Troponin I < 0.012 ng/mL (0.01-0.034)
[2024-04-21 19:14] LABS: Base Excess VBG 12.2 mmol/L (0-4); HCO3 VBG 45 mmol/L (24-28); Oxygen Saturation VBG 62 % (70-75); PO2 VBG 40 mmHg (35-45); Total CO2 VBG 45 mmol/L (24-29); pH VBG 7.25 (7.33-7.43)
[2024-04-21 19:57] LABS: PCO2 VBG > 86.0 mmHg (45-50)
[2024-04-21] MEDS: cefTRIAXone 1,000 MG in SODIUM CHLORIDE 0.9% 100 ML 200 MG IV (21:01)
[2024-04-21 23:25] LABS: Allen Test for ABG Passed? Positive; Base Excess ABG 9.1 mmol/L (-2-3); Blood Gas Collection Site Right Radial; Delivery System BiPAP; HCO3 ABG 37 mmol/L (23-27); Oxygen Saturation ABG 94 % (95-100); PEEP 8; PO2 ABG 77 mmHg (80-100); Pressure Support 6; TCO2 ABG 37 mmol/L (23-27); pH ABG 7.34 (7.35-7.45)
[2024-04-22] VITALS (62 sets, daily range): BP systolic 126–162; BP diastolic 58–86; PULSE 36–91; RESP 11–114; TEMP 36.1–36.8; O2SAT 81–98
[2024-04-22] MEDS: ROPINIROLE 1 MG TABLET 5 MG PO ×3 (00:35→21:09)
[2024-04-22 01:39] LABS: MRSA (Nasal) PCR NOT DETECTED (Not Detect)
[2024-04-22 05:28] LABS: Add Manual Diff / Slide Review NO; Basophils Absolute Auto 100 /uL (0-100); Basophils Percent Auto 1.1 % (0-2); Eosinophils Absolute Auto 500 /uL (0-450); Eosinophils Percent Auto 7.9 % (2-4); Hematocrit 37.2 % (41-53); Lymphocytes Absolute Auto 1100 /uL (1100-4500); Lymphocytes Percent Auto 16.8 % (25-40); Mean Corpuscular HGB Conc 32.3 % (30-36); Mean Corpuscular Hemoglobin 28.8 PG (26-34); Mean Corpuscular Volume 89.1 fL (80-100); Monocytes Absolute Auto 600 /uL (0-900); Monocytes Percent Auto 8.9 % (3-14); Neutrophils Absolute Auto 4300 /uL (1500-7000); Neutrophils Percent Auto 65.3 % (50-75); Platelet Count 218 X10^3/uL (150-400); Red Blood Cell Count 4.18 X10^6/uL (4.5-5.9); White Blood Cell Count 6.6 X10^3/uL (4.5-11.0)
[2024-04-22] MEDS: OXYCODONE IR 10 MG TABLET PO ×3 (05:28→21:09)
[2024-04-22 05:31] LABS: Alanine Aminotransferase 20 IU/L (<50); Albumin 3.5 g/dL (3.5-5.0); Albumin Globulin Ratio 1.2 (1.0-2.8); Alkaline Phosphatase 150 U/L (38-126); Aspartate Aminotransferase 57 IU/L (17-59); BUN Creatinine Ratio 17.8 (6-22); Bilirubin Total 0.5 mg/dL (0.2-1.3); Blood Urea Nitrogen 29 mg/dL (9-20); Calcium 8.8 mg/dL (8.4-10.2); Chloride 95 mmol/L (98-107); Cholesterol 109 mg/dL (140-199); Estimated Glomerular Filt Rate 43 mL/min (>60); Glucose 80 mg/dL (80-110); HDL Cholesterol 69 mg/dL (40-60); HEMOLYSIS < 15 (0-50); LDL Cholesterol Calculated 34 mg/dL (<100); Potassium 4.3 mmol/L (3.4-5.1); Sodium 140 mmol/L (137-145); Total Protein 6.5 g/dL (6.3-8.2); Triglycerides 28 mg/dL (35-150)
[2024-04-22 05:38] LABS: Carbon Dioxide 37 mmol/L (22-32)
--- NOTE | 2024-04-22 06:51 | PC.NURSE ---
Pt transferred from floor @ 2000 Bipap settings 30%, 01/30. Pt has difficulty tolerating Bipap, and alternates between 2 L NC and Bipap. CO2 improving (see labs)
[2024-04-22] MEDS: DULOXETINE 30 MG CAPSULE PO (08:24)
[2024-04-22] MEDS: ENOXAPARIN 40 MG/0.4 ML SYRINGE SUBCUT ×2 (08:25→21:08)
[2024-04-22] MEDS: PREGABALIN 75 MG CAPSULE 225 MG PO ×3 (08:25→21:19)
[2024-04-22] MEDS: FUROSEMIDE 40 MG/4 ML VIAL IV ×2 (08:25→17:32)
[2024-04-22 08:41] LABS: Allen Test for ABG Passed? Positive; Base Excess ABG 7.2 mmol/L (-2-3); Blood Gas Collection Site Left Radial; Delivery System oximask; HCO3 ABG 34 mmol/L (23-27); Oxygen Saturation ABG 91 % (95-100); PCO2 ABG 58.9 mmHg (35-45); PO2 ABG 65 mmHg (80-100); TCO2 ABG 34 mmol/L (23-27); pH ABG 7.37 (7.35-7.45)
--- NOTE | 2024-04-22 14:58 | PM.PN.1 ---
Subjective Subjective Interval history: 78 M admitted with CHF and hypercapnic respiratory failure. Improved mentation today, ABG improved. Taken off bipap. net negative 5L thus far. BP is okay. Patient feels slightly improved dyspnea, otherwise still weak and tired. Exam Vital Signs (past 8 hours): - 04/22/24 07:00 04/22/24 08:00 04/22/24 12:00 Temperature 97.4 F L 98.2 F Pulse Rate 72 77 Respiratory Rate 27 H 27 H Blood Pressure 145/67 H 144/69 H Pulse Oximetry 95 92 Oxygen Delivery Method Nasal Cannula BiPAP Oximask Oxygen Flow Rate 3 3 Fraction of Inspired Oxygen 30 Oxygen Delivery Method Nasal Cannula,BiPAP,Oximask Oxygen Flow Rate 3 Narrative Exam Narrative: General:? Patient is well developed and well nourished, in no distress at this time, slightly lethargic nodding off frequently HEENT:? Normocephalic, atraumatic, extraocular muscles intact, oral pharynx is clear and mucous membranes are moist. Neck: supple and symmetric, trachea is midline, no cervical adenopathy. Negative for JVD Chest:? Normal AP diameter and contour without kyphoscoliosis, no tachypnea, equal chest rise bilaterally. Lungs:?Bibasilar rales, no wheezing. Diminished sounds at the bases b/l Cardio:?RRR no m/r/g. Abdomen: S NT ND. pannus with mild edema as well, some skin excoriations on his abdomen as well Musculoskeletal:? Muscle strength and tone are equal within normal limits, no deformity. Extremities: 2+ peripheral LE edema, bilateral venous stasis changes with L leg dressed, RLE with mild circumferential calf erythema and tenderness, mildly warm compared to L but slightly improved today. Neuro:? Alert and orientated x3,? sensation to touch intact in all extremities, no gross deficits noted of cranial nerves. Psych:? Patient has a well-kept appearance, appropriate affect, mental status attitude thought context and judgment are appropriate for age. Objective Labs 04/22/24 04:00 04/22/24 04:00 Labs: Laboratory Results - last 24 hr 04/21/24 04/21/24 04/21/24 14:10 15:23 17:20 WBC RBC Hgb Hct MCV MCH MCHC RDW Plt Count Neut % (Auto) Lymph % (Auto) Traill % (Auto) Eos % (Auto) Baso % (Auto) Neut # (Auto) Lymph # (Auto) Traill # (Auto) Eos # (Auto) Baso # (Auto) ABG Sample Site ABG pH ABG pCO2 ABG pO2 ABG HCO3 ABG Total CO2 ABG O2 Saturation ABG Base Excess Daniel Test VBG pH VBG pCO2 VBG pO2 VBG HCO3 VBG Total CO2 VBG O2 Saturation VBG Base Excess O2 Delivery Device FiO2 % Pressure Support PEEP or CPAP Sodium Potassium Chloride Carbon Dioxide BUN Creatinine Estimated GFR BUN/Creatinine Ratio Glucose Hemoglobin A1c Calcium Magnesium Total Bilirubin AST ALT Alkaline Phosphatase Troponin I < 0.012 Total Protein Albumin Globulin Albumin/Globulin Ratio Triglycerides Cholesterol LDL Cholesterol, Calc HDL Cholesterol Urine Color Yellow Urine Appearance Clear Urine pH 6.5 Ur Specific [place] 1.010 Urine Protein Negative Urine Glucose (UA) Negative Urine Ketones Negative Urine Occult Blood Negative Urine Nitrate Negative Urine Bilirubin Negative Urine Urobilinogen 0.2 Ur Leukocyte Esterase Negative Urine RBC None seen Urine WBC None seen Ur Squamous Epith Cells 0-1 /hpf Urine Bacteria Occasional (0-1) Ur Culture Indicated? Cult not indicated Vol Urine Centrifuged 10ml (spun) Nasal Screen MRSA (PCR) Chlamy pneumoniae PCR Not detected Adenovirus (PCR) Not detected B. pertussis DNA (PCR) Not detected B.parapertussis DNA PCR Not detected Coronavirus OC43 (PCR) Not detected Coronavirus HKU1 (PCR) Not detected Coronavirus 229E (PCR) Not detected SARS-CoV-2 (PCR) Not detected Coronavirus NL63 (PCR) Not detected Human Metapneumovir PCR Not detected Influenza Type A (PCR) Not detected Influenza Type B (PCR) Not detected M. pneumoniae (PCR) Not detected Parainfluenza 1 (PCR) Not detected Parainfluenza 2 (PCR) Not detected Parainfluenza 3 (PCR) Not detected Parainfluenza 4 (PCR) Not detected RSV (PCR) Not detected Entero/Rhino (PCR) Not detected 04/21/24 04/21/24 04/22/24 19:10 23:11 00:10 WBC RBC Hgb Hct MCV MCH MCHC RDW Plt Count Neut % (Auto) Lymph % (Auto) Traill % (Auto) Eos % (Auto) Baso % (Auto) Neut # (Auto) Lymph # (Auto) Traill # (Auto) Eos # (Auto) Baso # (Auto) ABG Sample Site Right radial ABG pH 7.34 L ABG pCO2 69.0 H* ABG pO2 77 L ABG HCO3 37 H ABG Total CO2 37 H ABG O2 Saturation 94 L ABG Base Excess 9.1 H Daniel Test Positive VBG pH 7.25 L VBG pCO2 > 86.0 H VBG pO2 40 VBG HCO3 45 H VBG Total CO2 45 H VBG O2 Saturation 62 L VBG Base Excess 12.2 H O2 Delivery Device Bipap FiO2 % 28 % 30.0 % Pressure Support 6 PEEP or CPAP 8 Sodium Potassium Chloride Carbon Dioxide BUN Creatinine Estimated GFR BUN/Creatinine Ratio Glucose Hemoglobin A1c Calcium Magnesium Total Bilirubin AST ALT Alkaline Phosphatase Troponin I Total Protein Albumin Globulin Albumin/Globulin Ratio Triglycerides Cholesterol LDL Cholesterol, Calc HDL Cholesterol Urine Color Urine Appearance Urine pH Ur Specific [place] Urine Protein Urine Glucose (UA) Urine Ketones Urine Occult Blood Urine Nitrate Urine Bilirubin Urine Urobilinogen Ur Leukocyte Esterase Urine RBC Urine WBC Ur Squamous Epith Cells Urine Bacteria Ur Culture Indicated? Vol Urine Centrifuged Nasal Screen MRSA (PCR) Not detected Chlamy pneumoniae PCR Adenovirus (PCR) B. pertussis DNA (PCR) B.parapertussis DNA PCR Coronavirus OC43 (PCR) Coronavirus HKU1 (PCR) Coronavirus 229E (PCR) SARS-CoV-2 (PCR) Coronavirus NL63 (PCR) Human Metapneumovir PCR Influenza Type A (PCR) Influenza Type B (PCR) M. pneumoniae (PCR) Parainfluenza 1 (PCR) Parainfluenza 2 (PCR) Parainfluenza 3 (PCR) Parainfluenza 4 (PCR) RSV (PCR) Entero/Rhino (PCR) 04/22/24 04/22/24 04:00 08:37 WBC 6.6 RBC 4.18 L Hgb 12.0 L Hct 37.2 L MCV 89.1 MCH 28.8 MCHC 32.3 RDW 16.0 H Plt Count 218 Neut % (Auto) 65.3 Lymph % (Auto) 16.8 L Traill % (Auto) 8.9 Eos % (Auto) 7.9 H Baso % (Auto) 1.1 Neut # (Auto) 4300 Lymph # (Auto) 1100 Traill # (Auto) 600 Eos # (Auto) 500 H Baso # (Auto) 100 ABG Sample Site Left radial ABG pH 7.37 ABG pCO2 58.9 H ABG pO2 65 L ABG HCO3 34 H ABG Total CO2 34 H ABG O2 Saturation 91 L ABG Base Excess 7.2 H Daniel Test Positive VBG pH VBG pCO2 VBG pO2 VBG HCO3 VBG Total CO2 VBG O2 Saturation VBG Base Excess O2 Delivery Device oximask FiO2 % 28.0 % Pressure Support PEEP or CPAP Sodium 140 Potassium 4.3 Chloride 95 L Carbon Dioxide 37 H BUN 29 H Creatinine 1.63 H Estimated GFR 43 L BUN/Creatinine Ratio 17.8 Glucose 80 Hemoglobin A1c 7.0 H Calcium 8.8 Magnesium 2.0 Total Bilirubin 0.5 AST 57 ALT 20 Alkaline Phosphatase 150 H Troponin I Total Protein 6.5 Albumin 3.5 Globulin 3.0 Albumin/Globulin Ratio 1.2 Triglycerides 28 L Cholesterol 109 L LDL Cholesterol, Calc 34 HDL Cholesterol 69 H Urine Color Urine Appearance Urine pH Ur Specific [place] Urine Protein Urine Glucose (UA) Urine Ketones Urine Occult Blood Urine Nitrate Urine Bilirubin Urine Urobilinogen Ur Leukocyte Esterase Urine RBC Urine WBC Ur Squamous Epith Cells Urine Bacteria Ur Culture Indicated? Vol Urine Centrifuged Nasal Screen MRSA (PCR) Chlamy pneumoniae PCR Adenovirus (PCR) B. pertussis DNA (PCR) B.parapertussis DNA PCR Coronavirus OC43 (PCR) Coronavirus HKU1 (PCR) Coronavirus 229E (PCR) SARS-CoV-2 (PCR) Coronavirus NL63 (PCR) Human Metapneumovir PCR Influenza Type A (PCR) Influenza Type B (PCR) M. pneumoniae (PCR) Parainfluenza 1 (PCR) Parainfluenza 2 (PCR) Parainfluenza 3 (PCR) Parainfluenza 4 (PCR) RSV (PCR) Entero/Rhino (PCR) [facility] Medical History Perianal abscess Diaphragm paralysis Hypertension BPH (benign prostatic hyperplasia) Opiate dependence Chronic pain Fibromyalgia TALITA (acute kidney injury) Generalized edema (04/27/15) Surgical History History of lumbar laminectomy History of thoracic surgery Family History Grandfather Hypertension Stroke Social History household members: spouse Smoking Status: Never smoker alcohol intake: current Assessment & Plan Assessment & Plan narrative: This is a 78-year-old male with history of hypertension, fibromyalgia and BPH admitted with heart failure exacerbation and acute respiratory failure. Now off bipap today. Acute on chronic diastolic heart failure -TTE last admission unremarkable with normal EF and diastolic function, no valvular pathologies. -became hypotensive on TID lasix last admission will continue with BID lasix this admission. Diuresing well with net negative 5L since admission so far. -monitor electrolytes, K 5.0 on admit and 4.3 today. -strict intake and output, shirley placed reasoning noted below -ordered limited TTE to reassess for any change in systolic function which showed no changes. Acute on chronic respiratory failure with hypoxemia and hypercapnia - secondary to above - improved hypercapnea after bipap and diuresis. - continue diuresis as noted above. RLE cellulitis with possible sepsis - continue ceftriaxone 1g q24 hours, starting 04/22. Slight improvment in appearance today and less warmth. - blood cultures without growth. - SOFA score technically 2 with TALITA and hypoxia, though suspect this is more related to volume overload. TALITA -unclear Creatinine baseline but last admission as low as 0.9 -Creatinine 1.64, likely due to volume overload, unchanged at 1.63 today. -continue to monitor with diuresis HTN -Losartan, and diuresis as noted above -will hold prazosin with prior admission hypotension BPH -Dutasteride to continue, hold prazosin as noted abov Fibromyalgia -Continue home Pregabalin and Duloxetine -Continue Oxycodone 5-10 mg prn -continue buprenorphine patch weekly. -Followed at [facility] Depression/PTSD -Paroxetine, Duloxetine and Prazosin -significant nightmares suppressed on high-dose prazosin. RLS -Ropinorole Elevated LFT -Likely due to hepatic congestion -Follow with daily CMP, now normal. DM2 - DM diet ordered, along with sliding scale. Hold home metformin. - A1c 7.0% - LDL with great control at 34. Shirley catheter was placed in the ER for extensive edema and skin breakdown / excoriations in the area in the setting of needing accurate intake and output information. Will continue today. Code: Full His is his back up decision maker. Lovenox for DVT prevention Dispo: Inpatient, no longer requires ICU, downgraded to acute care. possible discharge home in 2-3 days. May need PT/OT depending on progress Time-Based Coding :: [TOTAL MINUTES] spent with patient and on the chart (including review of chart, obtaining history, exam, reviewing outside data, placing orders, documenting exam and treatment plan, and counseling patient) on [DATE]. Quality VTE Deep Vein Thrombosis/Pulmonary Embolism Present on Admission: No
[2024-04-22] MEDS: LORATADINE 10 MG TABLET PO (15:24)
--- NOTE | 2024-04-22 16:24 | CM.DANOTE ---
DCP Assessment Note: Pt is a 78yo male, resident of [place], is admitted for CHF, sepsis, fluid overload. Pt lives at [facility] with his . Pt's Primary Care Provider is Eda Milian PA-C and insurance is Medicare and [employer]go. Reviewed chart and discussed with multidisciplinary team pt's medical status and initial discharge needs. Pt was initially placed on BiPAP (9L) due to hypoxia. Now off BiPAP and on 2L O2. Pt had a shirley placed during ED presentation. DCP met w/patient at bedside; introduced self and role. Patient was found in bed, alert and oriented, cooperative with assessment. Pt reports he is independent at baseline, utilizes a FWW and wheelchair if necessary. Pt confirmed living situation and good support in , states they have been discussing possible transfer to an assisted living facility for more support for pt and his who he suspects has memory issues. PLATEN BUILDER UP discussed contact with [facility] to consult during NURSING HOME search, pt appreciative. Pt hopes to move to an NURSING HOME within the next 3-6 months. Pt expressed preference in discharge home with home health, pt reviewing Medicare Choice List. Per chart review, Pt has a hx of [facility] referral, unclear if pt started care as pt did not mention during assessment. Per hospitalist, PT/OT evaluations might follow when pt stable for dispo recommendations. Pt agreeable to working with therapies and following their recommendations. Plan: Awaiting PT/OT evaluations and other recommendation for evolving discharge plans. Anticipating discharge home with home health via [place] transport. CM team will follow closely for coordination of discharge plans. Adela Braun ART SUPERVISOR Discharge Planning/Care Management CM Discharge Assessment Start: 04/22/24 16:16 Freq: Status: Active Protocol: Document 04/22/24 16:16 MW (Rec: 04/22/24 16:20 MW [id number]) Discharge Planning Assessment Assigned Commercial Lines Underwriter GENO Chapman DPOA/Assigned Designee Name Amee Elias Contact Information (pt states she has a new phone # and could not obtain during assessment) Advance Directives? No History Provided By Patient,Medical Record Has Patient been admitted in last 30 No days? Prior Living Arrangements [facility] Facility Household Members spouse Type of transporation used prior to Relies on Others admit Facility Name Admitted From: [facility] Willing to Return to Facility? Yes Independent with ADL's Yes Is patient alert and oriented? Yes Caregiver for Another Yes: States has signs of cognitive disorder (dementia) DME Already Rented / Owned Wheelchair,FWW / Walker Patient/Family Preference Home with Home Health Barriers to Discharge No Discharge Plan Home with Home Health Transportation Arrangement [address] [facility] Additional Comment Pending plan of care. If patient plan is home with home health No : Has signed face to face form been completed? If patient plan is SNF: Has PASSR been No completed? Medicare Choice List Provided Yes Medicare choice list reviewed on patient electronic tablet with Whiteboard Updated in Patient Room with Yes name and ext. # of Commercial Lines Underwriter Comment [phone] Review Status In Process Please Provide Date Initial DC 04/22/24 Assessment Was Performed Next Review Type Continued Stay Review
--- NOTE | 2024-04-22 17:49 | DI.ECHO.S_ITS ---
[facility]+ [facility] : : [id number] : : [place] : : [id number] : : Phone: [phone] Echocardiogram Report + + :Name: JOSE DILLARD Study Date: 04/22/2024 Height: 67 in : :[facility] ReadingLocation: Weight: 350 lb : : Gender: Male BSA: 2.6 m2 : :: 1945 Age: 78 yrs BP: 126/58 mmHg: :Reason For Study: CONGESTIVE HEART FAILURE : :Ordering Physician: FERNANDO, : :MAXINE SOSA Performed By: Dequan Carranza : :Referring: MAXINE KING : + + Interpretation Summary TDS - MORBID OBESITY A two-dimensional transthoracic echocardiogram with color flow and Doppler was performed in limited views only. The left ventricle is grossly normal size. The ejection fraction is estimated to be 65-70%. No significant change in LVEF from the previous study. Procedure: A two-dimensional transthoracic echocardiogram with color flow and Doppler was performed in limited views only. A contrast injection of Definity was performed to improve assessment of LV function. The study quality was technically difficult. Comparison is made with the echocardiogram of 02/08/2024. The patient was in normal sinus rhythm during the exam. Left Ventricle: The left ventricle is grossly normal size. There is no thrombus. The ejection fraction is estimated to be 65-70%. There are no focal wall motion abnormalities. Mitral Valve: There is no mitral regurgitation noted. Aortic Valve: There is trace aortic regurgitation. Tricuspid Valve: There is a trace or physiologic amount of tricuspid regurgitation. MMode/2D Measurements & Calculations LVIDd: 4.6 cm LVIDs: 3.3 cm FS: 27.7 % IVSd: 1.1 cm LVPWd: 1.2 cm LV nixon. diameter/BSA (cm/m^2): 1.8 LV sys. diameter/BSA (cm/m^2): 1.3 Reading Physician:10:16 AM
[2024-04-22] MEDS: cefTRIAXone 1,000 MG in SODIUM CHLORIDE 0.9% 100 ML 200 MG IV (18:33)
[2024-04-22] MEDS: GUAIFENESIN/DM 200/20 MG/10 ML UDC PO (23:38)
[2024-04-23] VITALS (30 sets, daily range): BP systolic 161–177; BP diastolic 69–93; PULSE 68–94; RESP 22; TEMP 36.6; O2SAT 88–98
[2024-04-23] MEDS: OXYCODONE IR 10 MG TABLET PO ×2 (03:22→09:17)
[2024-04-23 04:59] LABS: Add Manual Diff / Slide Review NO; Basophils Absolute Auto 100 /uL (0-100); Basophils Percent Auto 0.9 % (0-2); Eosinophils Absolute Auto 400 /uL (0-450); Eosinophils Percent Auto 6.3 % (2-4); Hematocrit 39.1 % (41-53); Hemoglobin 12.8 g/dL (13.5-17.5); Lymphocytes Absolute Auto 1500 /uL (1100-4500); Lymphocytes Percent Auto 20.7 % (25-40); Mean Corpuscular HGB Conc 32.7 % (30-36); Mean Corpuscular Hemoglobin 28.5 PG (26-34); Monocytes Absolute Auto 600 /uL (0-900); Monocytes Percent Auto 8.3 % (3-14); Neutrophils Absolute Auto 4500 /uL (1500-7000); Neutrophils Percent Auto 63.8 % (50-75); Platelet Count 233 X10^3/uL (150-400); Red Blood Cell Count 4.49 X10^6/uL (4.5-5.9); Red Cell Distribution Width 15.9 % (11.6-14.8); White Blood Cell Count 7.1 X10^3/uL (4.5-11.0)
[2024-04-23 05:14] LABS: Alanine Aminotransferase 21 IU/L (<50); Albumin 3.6 g/dL (3.5-5.0); Albumin Globulin Ratio 1.1 (1.0-2.8); Alkaline Phosphatase 163 U/L (38-126); Aspartate Aminotransferase 59 IU/L (17-59); BUN Creatinine Ratio 19.2 (6-22); Bilirubin Total 0.6 mg/dL (0.2-1.3); Blood Urea Nitrogen 30 mg/dL (9-20); Carbon Dioxide 38 mmol/L (22-32); Chloride 96 mmol/L (98-107); Estimated Glomerular Filt Rate 45 mL/min (>60); Globulin 3.3 g/dL (1.7-4.1); Glucose 98 mg/dL (80-110); HEMOLYSIS < 15 (0-50); Magnesium 1.9 mg/dL (1.6-2.3); Potassium 4.1 mmol/L (3.4-5.1); Sodium 138 mmol/L (137-145); Total Protein 6.9 g/dL (6.3-8.2)
[2024-04-23] MEDS: ENOXAPARIN 40 MG/0.4 ML SYRINGE SUBCUT (09:16)
[2024-04-23] MEDS: PREGABALIN 75 MG CAPSULE 225 MG PO (09:17)
[2024-04-23] MEDS: FUROSEMIDE 40 MG/4 ML VIAL IV (09:17)
[2024-04-23] MEDS: DULOXETINE 30 MG CAPSULE PO (09:18)
[2024-04-23] MEDS: ROPINIROLE 1 MG TABLET 5 MG PO (09:18)
[2024-04-23] MEDS: LORATADINE 10 MG TABLET PO (09:18)
--- NOTE | 2024-04-23 10:26 | PM.DS.1 ---
History of Present Illness History of Present Illness Date Patient Seen: 04/23/24 Chief complaint: low back pain, sob Narrative: Per admitting provider, This Is a 78-year-old male with a past medical history of hypertension, chronic pain and fibromyalgia, BPH and diagnosis of diastolic heart failure on admission here in January 2024 who presents with worsening lower extremity edema, mild shortness of breath, and 15 lbs of weight gain over the past couple of days. Patient states that he had tried Bumex with his primary care doctor but this was of no relief. He was hypoxic upon arrival into the mid 70s, improved on 4 L of oxygen in the emergency room. ProBNP was elevated at 1530, initial troponin was negative. EKG showed normal sinus rhythm with a first-degree block, with no evidence of acute ischemia. Respiratory panel was performed and was negative. Urinalysis was unremarkable. Creatinine was a bit up at 1.64 consistent with his prior admission for heart failure. He was admitted to the medicine service for further management of presumed diastolic heart failure exacerbation. Discharge Providers Provider Date of admission: 04/21/24 17:07 Discharge Date: 04/23/24 Primary care physician: Doctor Aravind MD Discharge provider: Inder Wills DO Summary Hospital Course Discharge Diagnosis: Acute on chronic diastolic heart failure Acute on chronic respiratory failure with hypoxemia and hypercapnia Possible RLE cellulitis with sepsis ruled out. TALITA HTN BPH Fibromyalgia Depression/PTSD RLS Elevated LFT DM2 Hospital Course: This is a 78-year-old male with a past medical history of depression/PTSD, type 2 diabetes, fibromyalgia, BPH, hypertension, chronic hypoxemic and hypercapnic respiratory failure, diastolic heart failure who was admitted with an acute on chronic hypercapnic respiratory failure in the setting of a CHF exacerbation. He was initially on BiPAP therapy given a respiratory acidosis on presentation. His gas improved the following morning and he no longer required additional BiPAP after initial therapies. He was diuresed with IV furosemide with good response. He also had a mild right lower extremity erythema on presentation, with a possible cellulitis. He was started on ceftriaxone. It is unclear at this time if he had improvement due to diuresis or antibiotic therapy. He had no complaints of pain at the time of discharge, and antibiotics were not continued as it seems more likely this was related to fluid retention rather than infection. He had an echocardiogram which showed no significant changes to prior with a normal ejection fraction and no significant wall motion abnormalities. He had an elevated creatinine compared to his prior admission at 1.6, this improved with diuresis to 1.53. After couple days of diuresis on IV furosemide the patient felt well, with no significant dyspnea on exertion and he was no longer requiring supplemental oxygen. He wished to discharge home. He was transported by taxi to his apartment at [facility]. He was instructed to resume his 1 mg of Bumex b.i.d. upon discharge, which had been started prior to admission. No other changes to his home medications were recommended the time of discharge. Time Spent with Patient Time spent: Greater than 30 minutes Exam Vital Signs (past 8 hours): - 04/23/24 02:30 04/23/24 03:00 04/23/24 03:30 Pulse Rate 85 75 84 Blood Pressure Pulse Oximetry 93 94 90 L 04/23/24 04:00 04/23/24 04:30 04/23/24 05:00 Pulse Rate 74 79 80 Blood Pressure Pulse Oximetry 94 92 94 04/23/24 05:30 04/23/24 06:00 04/23/24 06:30 Pulse Rate 85 79 77 Blood Pressure Pulse Oximetry 96 94 96 04/23/24 07:00 04/23/24 07:28 04/23/24 07:28 Pulse Rate 78 76 Blood Pressure 167/92 H Pulse Oximetry 96 96 Fraction of Inspired Oxygen 30 Oxygen Delivery Method Nasal Cannula,BiPAP,Oximask Oxygen Flow Rate 3 Narrative Exam Narrative: General:? Patient is well developed and well nourished, in no distress at this time, slightly lethargic nodding off frequently HEENT:? Normocephalic, atraumatic, extraocular muscles intact, oral pharynx is clear and mucous membranes are moist. Neck: supple and symmetric, trachea is midline, no cervical adenopathy. Negative for JVD Chest:? Normal AP diameter and contour without kyphoscoliosis, no tachypnea, equal chest rise bilaterally. Lungs:?Bibasilar rales, no wheezing. Diminished sounds at the bases b/l Cardio:?RRR no m/r/g. Abdomen: S NT ND. pannus with mild edema as well, some skin excoriations on his abdomen as well Musculoskeletal:? Muscle strength and tone are equal within normal limits, no deformity. Extremities: 1+ peripheral LE edema, bilateral venous stasis changes with L leg dressed, RLE with no further evidence of cellulitis. Neuro:? Alert and orientated x3,? sensation to touch intact in all extremities, no gross deficits noted of cranial nerves. Psych:? Patient has a well-kept appearance, appropriate affect, mental status attitude thought context and judgment are appropriate for age. Objective Labs 04/23/24 04:20 04/23/24 04:20 Labs: Laboratory Results - last 24 hr 04/23/24 04:20 WBC 7.1 RBC 4.49 L Hgb 12.8 L Hct 39.1 L MCV 87.0 MCH 28.5 MCHC 32.7 RDW 15.9 H Plt Count 233 Neut % (Auto) 63.8 Lymph % (Auto) 20.7 L Howell % (Auto) 8.3 Eos % (Auto) 6.3 H Baso % (Auto) 0.9 Neut # (Auto) 4500 Lymph # (Auto) 1500 Howell # (Auto) 600 Eos # (Auto) 400 Baso # (Auto) 100 Sodium 138 Potassium 4.1 Chloride 96 L Carbon Dioxide 38 H BUN 30 H Creatinine 1.56 H Estimated GFR 45 L BUN/Creatinine Ratio 19.2 Glucose 98 Calcium 9.0 Magnesium 1.9 Total Bilirubin 0.6 AST 59 ALT 21 Alkaline Phosphatase 163 H Total Protein 6.9 Albumin 3.6 Globulin 3.3 Albumin/Globulin Ratio 1.1 PFSH Medical History Perianal abscess Diaphragm paralysis Hypertension BPH (benign prostatic hyperplasia) Opiate dependence Chronic pain Fibromyalgia TALITA (acute kidney injury) Generalized edema (04/27/15) Surgical History History of lumbar laminectomy History of thoracic surgery Family History Grandfather Hypertension Stroke Social History household members: spouse Smoking Status: Never smoker alcohol intake: current Discharge Plan Discharge Plan Patient Disposition: Home Health Service Provider Discharge Comment: You were admitted to the hospital with a heart failure exacerbation. You should resume home bumex 1 mg BID. Please try to follow up with primary care provider as soon as possible for continued management of diuresis. Try to limit your total sodium intake to under 2g daily, this is really hard to do. Discharge orders & Medications Prescriptions: New methylphenidate HCl 36 mg Tablet Extended Release 24hr 36 mg PO DAILY Qty: 30 0RF dutasteride 0.5 mg Capsule 0.5 mg PO DAILY Qty: 30 0RF Continued pregabalin [Lyrica] 225 MG capsule 225 mg PO TID Qty: 84 1RF ondansetron HCl 4 mg tablet 4 mg PO Q8H PRN (Reason: Nausea) duloxetine 30 mg capsule,delayed release(DR/EC) 30 mg PO DAILY oxycodone 10 mg tablet 10 mg PO 3XD PRN (Reason: Pain (Scale Score 7-10)) miconazole nitrate [Antifungal (miconazole)] 2 % Cream 1 applic TOPICAL DAILY prazosin 5 mg Capsule 10 mg PO BEDTIME Patient Comments: Confirmed with patient and his that he only takes 2 x 5mg caps = 10mg at bedtime (not 14mg as previously recorded) bumetanide 1 mg tablet 1 mg PO DIRECTED Rx Instructions: 1 mg Q AM daily & 1 mg @ Noon daily PO metformin 500 mg tablet extended release 24 hr 500 mg PO BID Patient Comments: [NO ORIGINAL SIG] ropinirole 5 mg Tablet 5 mg PO BID Follow up/Referrals: Doctor Nazario MD [Primary Care Provider] - Diet/Activity/Treatments Diet: Diet as Tolerated and Low-sodium Activity: As tolerated no restrictions Visit Report/Discharge Packet Instructions: Heart-Healthy Diet, DI for Heart Failure, Low-Sodium Diet Stand Alone Forms: Congestive Heart Failure, Patient Portal/API, Stroke Signs & Symptoms Discharge Data Primary Care Provider: Doctor Aravind Quality VTE Deep Vein Thrombosis/Pulmonary Embolism Present on Admission: No
[2024-04-23] MEDS: GUAIFENESIN/DM 200/20 MG/10 ML UDC PO (11:23)
--- NOTE | 2024-04-23 14:55 | CM.DPNOTE ---
DC Note Patient is on room air and has been discharged home today and will be headed back to his apt at [facility]. Patient denies needs from this SW. Re transportation home- patient reports he has been blacklisted by [facility]rios so has scheduled an uber to take him home. RIZWAN
--- NOTE | 2024-04-23 19:27 | PC.NURSE ---
Late traffic recorder: VORB 04/23/24 approx 11am order to dc shirley prior to discharge. Shirley dc'd, patient tolerated well. Patient states he has incontinence and assisted to put on a pull up with guerita care provided. Patient able to void prior to discharge to home. Patient was discharged to home, states he will follow up with his PCP and anticipates seeing them thursday or in the office. Patient states understanding of discharge instructions and has no further questions or concerns at this time. 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
== END 2024-04-23 14:05 | disposition home or self-care (01) | DRG 291 ==
LOC: ED 17:00 → AC 17:08 → ICU 20:11
PROVIDERS: Internal Medicine; Admitting Provider Internal Medicine; Emergency Provider Emergency Medicine; Referring Provider Emergency Medicine; Visit Provider Internal Medicine
DX: I13.0 Hypertensive heart and chronic kidney disease with heart failure and stage 1 through stage 4 chronic kidney disease, or unspecified chronic kidney disease (principal); I50.33 Acute on chronic diastolic (congestive) heart failure; J96.01 Acute respiratory failure with hypoxia; J96.22 Acute and chronic respiratory failure with hypercapnia; L03.115 Cellulitis of right lower limb; N17.9 Acute kidney failure, unspecified; I44.0 Atrioventricular block, first degree; I95.9 Hypotension, unspecified; N18.9 Chronic kidney disease, unspecified; N40.0 Benign prostatic hyperplasia without lower urinary tract symptoms; M79.7 Fibromyalgia; F32.A Depression, unspecified; F43.10 Post-traumatic stress disorder, unspecified; G25.81 Restless legs syndrome; R79.89 Other specified abnormal findings of blood chemistry; E11.22 Type 2 diabetes mellitus with diabetic chronic kidney disease; Z79.84 Long term (current) use of oral hypoglycemic drugs
CPT/HCPCS: 36415; 36600; 71045; 80053; 80061; 81001; 82805; 82962; 83036; 83605; 83735; 83880; 84484; 85025; 85610; 87040; 87633; 87797; 93005; 93307; 94660; 99284; 99285; J0696; J1650; J1940; Q9957